=== PATIENT | male | born 1930 | race Caucasian/White ===

== ENCOUNTER 2017-01-27 12:18 | Emergency (ER) | payer OTHER ==
[~2017-01-27] VITALS: Ht 172.7 cm; Wt 79.0 kg
[~2017-01-27 12:18] MED LIST: ALL300 PO; ASPCH81 PO; CEPH500C2 PO; FRS/40 PO; METO50TA16 PO; MULT-190 PO; POTA-327 PO; SPR25 PO
[2017-01-27 12:21] VITALS: TEMP 36.3; Ht 172.7 cm; Wt 79.0 kg
--- NOTE | 2017-01-27 13:16 | EMERGENCY ROOM VISIT NOTE ---
History Report prepared by Russ: Carol Warren Under the Supervision of: Dr. Sang López M.D. First contact with patient: 12:39 Chief Complaint: FALL Stated Complaint: L SHOULDER PAIN History of Present Illness The patient is an 86 year old male who presents to the Emergency Room with complaints of an episode of a fall occurring CLOTHES IRON[employer]. The patient was in his walker in the bathroom and tripped over a box. Son thinks that the patient hit his head on the door frame and slid down the frame on his left shoulder. The patient has an abrasion to the forehead that he states was bleeding earlier. He is complaining of left shoulder pain that is worsened with movement. He rates his pain as a 10/10 in severity. The patient denies LOC, neck pain, back pain, hip pain, leg pain, and abdominal pain. He reports numbness in the fingers of his left hand that has been going on for the past few weeks. He denies any new numbness or weakness. His tetanus is UTD. Source of History: patient, family (son) Onset: CLOTHES IRONER Position: other (global) Symptom Intensity: 10/10 Timing: other (episode) Modifying Factors (Worsening): movement Associated Symptoms: + numbness (left fingers), No LOC, No neck pain, No abdominal pain, No back pain, No weakness Note: Pt is c/o left shoulder pain. Review of Systems See HPI for pertinent positives & negatives. A total of 10 systems reviewed and were otherwise negative. Past Medical & Surgical Medical Problems: (1) Atrial fibrillation (2) SEVERE CELLULITIS RIGHT LEG Family History Lung disease Social History Smoking Status: Former Smoker Smokeless Tobacco Use: No Alcohol Use: none Drug Use: none Marital Status: Occupation Status: retired Current/Historical Medications Scheduled Aspirin (Aspirin), 1 TAB PO DAILY Furosemide (Lasix), 40 MG PO DAILY Metoprolol Tartrate (Lopressor) (Lopressor), 50 MG PO BID Ocuvite Preservision (Ocuvite Preservision), 1 TAB PO DAILY Potassium Chloride (Micro-K Ext Rel), 0.5 TAB PO DAILY Spironolactone (Aldactone), 25 MG PO DAILY Allergies Coded Allergies: No Known Allergies (Unverified , 01/27/17) Physical Exam Vital Signs Date Time Temp Pulse Resp B/P (MAP) Pulse Ox O2 Delivery O2 Flow Rate FiO2 01/27/17 14:46 68 18 97/68 98 01/27/17 14:29 97/68 01/27/17 12:58 47 23 100 01/27/17 12:53 52 24 100 01/27/17 12:48 56 20 98 01/27/17 12:43 44 14 95 01/27/17 12:38 45 24 96 01/27/17 12:35 49 01/27/17 12:33 54 24 01/27/17 12:32 109/62 01/27/17 12:21 36.3 97 16 104/54 98 Physical Exam Constitutional: Vital signs reviewed. Head: Abrasion/skin avulsion to the left forehead. Eyes: Pupils are equal round reactive to light. Conjunctiva are noninjected. ENT: Pharynx is clear without erythema or exudate. Mucous membranes are moist. Neck supple without meningeal signs. Respiratory: Clear to auscultation bilaterally. Breath sounds are equal bilaterally. Cardiovascular: Regular rate and rhythm. No rubs or gallops. GI: Soft, nondistended and nontender. Bowel sounds are present. Musculoskeletal: Skin tear to the left shoulder without bony tenderness or deformity. No midline tenderness to the cervical spine. No hip tenderness. Integumentary: No cyanosis. Neurological: The patient is awake and alert. Cranial nerves II-XII are intact. Motor is 5 out of 5 all extremities. Diminished sensation to the left upper extremity over the ulnar aspect of the forearm and hand. Normal speech. No pronator drift. Psychiatric: Normal affect. Medical Decision & Procedures ER Provider Diagnostic Interpretation: Radiology results as stated below per my review and the radiologist's interpretation: LEFT SHOULDER 3 VIEWS CLINICAL HISTORY: Fall with left shoulder pain. FINDINGS: 3 views of left shoulder are obtained. No prior studies are available for comparison at the time of dictation. The skeletal structures are osteopenic. There is no radiographic evidence of fracture or dislocation in the left shoulder. Moderate arthritic change is seen at the glenohumeral articulation. Superior subluxation of the humeral head suggests chronic rotator cuff injury. Degenerative change and sclerosis is noted in the greater tuberosity the humeral head. Mild productive change is seen at the acromioclavicular joint. Mild overlying soft tissue edema is suggested. The imaged left lung parenchyma appears clear. The heart is enlarged and there is atherosclerotic calcification of the thoracic aorta. IMPRESSION: 1. Soft tissue swelling with no radiographic evidence of left shoulder fracture or dislocation. 2. Osteopenia and arthritic/degenerative change as above. Electronically signed by: Yusuf Aguilar M.D. 01/27/2017 1:25 PM Dictated Date/Time: 01/27/2017 1:[address] SCAN OF THE BRAIN WITHOUT IV CONTRAST CLINICAL HISTORY: Fall. COMPARISON STUDY: No priors. TECHNIQUE: Unenhanced axial CT scan of the brain is performed from the vertex to the skull base. CT DOSE: Reported separately under the concurrently performed CT scan of the cervical spine. FINDINGS: Brain parenchyma: There are age-related involutional changes noting mild subcortical and periventricular microangiopathic change. There is no hemorrhage, mass effect, or evidence of acute territorial ischemia by CT criteria. 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 Lal-white matter is preserved. No extra-axial fluid collection is seen. Ventricles, sulci, cisterns: Prominent secondary to involutional change. Intracranial vasculature: There is atherosclerotic calcification of the cavernous carotid arteries. Calvarium: The skeletal structures are osteopenic. There is no depressed calvarial fracture. Soft tissues: There is minimal left frontal scalp contusion. Sinuses and mastoids: Trace fluid is seen in the right maxillary antrum. The remaining visualized paranasal sinuses are clear. The mastoid air cells are well pneumatized. Orbits: The bony orbits are grossly intact. There are bilateral ocular lens implants. IMPRESSION: There is no hemorrhage, mass effect, or evidence of acute territorial ischemia by CT criteria. Electronically signed by: Yusuf Aguilar M.D. 01/27/2017 1:38 PM Dictated Date/Time: 01/27/2017 1:[address] SCAN OF THE CERVICAL SPINE CLINICAL HISTORY: Fall. COMPARISON STUDY: No priors. TECHNIQUE: CT scan of the cervical spine is performed from the skull base to the upper thoracic spine. Images are reviewed in the axial, sagittal, and coronal planes. IV contrast was not administered for this examination. CT DOSE: 1141.47 mGy.cm FINDINGS: Skeletal structures: The skeletal structures are osteopenic. There is no evidence of fracture or subluxation involving the cervical spine. Vertebral body height and alignment are maintained. There is mild straightening of the cervical lordosis. The odontoid process and lateral masses are intact. The atlantoaxial articulation is preserved noting mild productive degenerative change. The spinous processes appear intact. A large Schmorl's node is present in the inferior endplate of C7. A small Schmorl's node is seen in superior endplate of C5. Anterior osteophytes are noted throughout. There is moderate to advanced multilevel cervical spondylosis. Uncovertebral and facet arthropathy contribute to neural foraminal narrowing at most levels. Intervertebral discs: Moderate to advanced degenerative disc space narrowing is seen at C3-C4, C5-C6, C6-C7, and C7-T1. Central canal: Small posterior disc osteophyte complexes at C3-C4, C5-C6, and C6-C7 may contribute to mild acquired compromise of the central canal. Soft tissues: The prevertebral and paraspinous soft tissues are within normal limits. There is advanced atherosclerotic calcification of the carotid bulbs. Calcified tonsilliths are observed. A 1.7 cm lobulated water attenuation lesion is seen in the posterior right lower neck on image #53. This likely represents a seroma or sebaceous cyst. Calvarium: The visualized calvarium at the skull base appears intact. Brain parenchyma: Partially visualized brain parenchyma the skull base is within normal limits noting age-related involutional change. Sinuses and mastoids: There is trace fluid within the partially imaged right maxillary antrum. The sphenoid sinuses appear clear. The mastoid air cells are well pneumatized. Lung apices: There is a right pleural effusion. A calcified granuloma is noted at the left apex. IMPRESSION: 1. There is no evidence of fracture or subluxation involving the cervical spine. 2. Osteopenia and spondylotic change as above. 3. Right pleural effusion. Electronically signed by: Yusuf Aguilar M.D. 01/27/2017 1:45 PM Dictated Date/Time: 01/27/2017 1:35 PM ED Course 1239: The patient was evaluated in room A11B. A complete history and physical exam was performed. 1411: I reassessed the patient at this time. He denies any shortness of breath. I discussed the results and treatment plan with the patient and his family. I answered all pertaining that they had. They expressed understanding and verbalized agreement. The patient will be discharged home. Medical Decision This is an 86-year-old male who presents with injuries after fall with left arm numbness. Differential diagnosis includes intracranial hemorrhage, contusion, concussion, humeral fracture, cervical radiculopathy, CVA. I did perform a limited focused review of portions of the patient's old chart on the electronic medical record. The patient has had no recent pertinent visits to this hospital. Medication Reconciliation: I attest that I have personally reviewed the patient' s current medication list. Blood Pressure Screening: Patient was found to be hypotensive on screening and does not require follow-up. I did evaluate the patient as noted above. The patient is here with injuries after a mechanical fall. He states he tripped over a box. He is neurologically intact other than some numbness to the ulnar distribution in the forearm and left hand. He states this has been going on for weeks and is not a new symptom today. I did order and personally review the patient's shoulder x- rays as described above. I did order a CT of the head and cervical spine. I did review the images myself as well as the radiology report as described above. There is no evidence of intracranial hemorrhage. There is no fracture. He does have degenerative disc disease and cervical spine which may account for his numbness in his left forearm for the past several weeks. There is also incidental note of a right pleural effusion. The patient denies any shortness of breath. I did discuss the test ruled the patient and his family. He was advised follow closely with his doctor for further evaluation. His wounds were cleaned and dressed. He was discharged in good condition. Impression Primary Impression: Acute head injury Additional Impressions: Contusion of shoulder, left Left arm numbness Cervical disc disorder Fall Pleural effusion, right Scribe Attestation The scribe's documentation has been prepared under my direct and personally reviewed by me in its entirety. I confirm that the note above accurately reflects all work, treatment, procedures, and medical decision making performed by me. Departure Information Dispostion Home / Self-Care Referrals Lauren Sands D.O. (PCP) Forms HOME CARE DOCUMENTATION FORM, IMPORTANT VISIT INFORMATION Patient Instructions ED Effusion Pleural, ED Head Injury Closed, My [facility] Additional Instructions You have been examined and treated today on an emergency basis only. This is not a substitute for, or an effort to provide, complete comprehensive medical care. It is impossible to recognize and treat all injuries or illnesses in a single emergency department visit. It is therefore important that you follow up closely with your physician. Call as soon as possible for an appointment. Return for worsening symptoms or if you develop fever, vomiting, abdominal pain , loss of control of your bowel or bladder, numbness or weakness to your legs, numbness to your private area, difficulty urinating, or any other concerning symptoms. Problem Qualifiers Primary Impression: Acute head injury Encounter type: initial encounter Qualified Codes: S09.90XA - Unspecified injury of head, initial encounter Additional Impressions: Fall Encounter type: initial encounter Qualified Codes: W19.XXXA - Unspecified fall, initial encounter
--- NOTE | 2017-01-27 13:26 | DIAGNOSTIC IMAGING REPORT ---
LEFT SHOULDER 3 VIEWS CLINICAL HISTORY: Fall with left shoulder pain. FINDINGS: 3 views of left shoulder are obtained. No prior studies are available for comparison at the time of dictation. The skeletal structures are osteopenic. There is no radiographic evidence of fracture or dislocation in the left shoulder. Moderate arthritic change is seen at the glenohumeral articulation. Superior subluxation of the humeral head suggests chronic rotator cuff injury. Degenerative change and sclerosis is noted in the greater tuberosity the humeral head. Mild productive change is seen at the acromioclavicular joint. Mild overlying soft tissue edema is suggested. The imaged left lung parenchyma appears clear. The heart is enlarged and there is atherosclerotic calcification of the thoracic aorta. IMPRESSION: 1. Soft tissue swelling with no radiographic evidence of left shoulder fracture or dislocation. 2. Osteopenia and arthritic/degenerative change as above. Electronically signed by: Yusuf Aguilar M.D. 01/27/2017 1:25 PM Dictated Date/Time: 01/27/2017 1:23 PM
--- NOTE | 2017-01-27 13:39 | DIAGNOSTIC IMAGING REPORT ---
CT SCAN OF THE BRAIN WITHOUT IV CONTRAST CLINICAL HISTORY: Fall. COMPARISON STUDY: No priors. TECHNIQUE: Unenhanced axial CT scan of the brain is performed from the vertex to the skull base. CT DOSE: Reported separately under the concurrently performed CT scan of the cervical spine. FINDINGS: Brain parenchyma: There are age-related involutional changes noting mild subcortical and periventricular microangiopathic change. There is no hemorrhage, mass effect, or evidence of acute territorial ischemia by CT criteria. 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 Lal-white matter is preserved. No extra-axial fluid collection is seen. Ventricles, sulci, cisterns: Prominent secondary to involutional change. Intracranial vasculature: There is atherosclerotic calcification of the cavernous carotid arteries. Calvarium: The skeletal structures are osteopenic. There is no depressed calvarial fracture. Soft tissues: There is minimal left frontal scalp contusion. Sinuses and mastoids: Trace fluid is seen in the right maxillary antrum. The remaining visualized paranasal sinuses are clear. The mastoid air cells are well pneumatized. Orbits: The bony orbits are grossly intact. There are bilateral ocular lens implants. IMPRESSION: There is no hemorrhage, mass effect, or evidence of acute territorial ischemia by CT criteria. Electronically signed by: Yusuf Aguilar M.D. 01/27/2017 1:38 PM Dictated Date/Time: 01/27/2017 1:35 PM
--- NOTE | 2017-01-27 13:47 | DIAGNOSTIC IMAGING REPORT ---
CT SCAN OF THE CERVICAL SPINE CLINICAL HISTORY: Fall. COMPARISON STUDY: No priors. TECHNIQUE: CT scan of the cervical spine is performed from the skull base to the upper thoracic spine. Images are reviewed in the axial, sagittal, and coronal planes. IV contrast was not administered for this examination. CT DOSE: 1141.47 mGy.cm FINDINGS: Skeletal structures: The skeletal structures are osteopenic. There is no evidence of fracture or subluxation involving the cervical spine. Vertebral body height and alignment are maintained. There is mild straightening of the cervical lordosis. The odontoid process and lateral masses are intact. The atlantoaxial articulation is preserved noting mild productive degenerative change. The spinous processes appear intact. A large Schmorl's node is present in the inferior endplate of C7. A small Schmorl's node is seen in superior endplate of C5. Anterior osteophytes are noted throughout. There is moderate to advanced multilevel cervical spondylosis. Uncovertebral and facet arthropathy contribute to neural foraminal narrowing at most levels. Intervertebral discs: Moderate to advanced degenerative disc space narrowing is seen at C3-C4, C5-C6, C6-C7, and C7-T1. Central canal: Small posterior disc osteophyte complexes at C3-C4, C5-C6, and C6-C7 may contribute to mild acquired compromise of the central canal. Soft tissues: The prevertebral and paraspinous soft tissues are within normal limits. There is advanced atherosclerotic calcification of the carotid bulbs. Calcified tonsilliths are observed. A 1.7 cm lobulated water attenuation lesion is seen in the posterior right lower neck on image #53. This likely represents a seroma or sebaceous cyst. Calvarium: The visualized calvarium at the skull base appears intact. Brain parenchyma: Partially visualized brain parenchyma the skull base is within normal limits noting age-related involutional change. Sinuses and mastoids: There is trace fluid within the partially imaged right maxillary antrum. The sphenoid sinuses appear clear. The mastoid air cells are well pneumatized. Lung apices: There is a right pleural effusion. A calcified granuloma is noted at the left apex. IMPRESSION: 1. There is no evidence of fracture or subluxation involving the cervical spine. 2. Osteopenia and spondylotic change as above. 3. Right pleural effusion. Electronically signed by: Yusuf Aguilar M.D. 01/27/2017 1:45 PM Dictated Date/Time: 01/27/2017 1:35 PM
[2017-01-27] MEDS ORDERED: MULT-190 PO (14:22)
[2017-01-27] MEDS ORDERED: METO50TA16 PO (14:22)
[2017-01-27] MEDS ORDERED: SPIR25TA PO (14:22)
[2017-01-27] MEDS ORDERED: ASPI1TAB83 PO (14:22)
[2017-01-27] MEDS ORDERED: FRS/40 PO (14:22)
[2017-01-27] MEDS ORDERED: POTA10CA28 PO (14:22)
[2017-01-27 14:46] VITALS: BP 97/68; PULSE 68; O2SAT 98
[2017-02-27] MEDS ORDERED: CIPR1TAB11 PO (15:13)
[2017-04-29] MEDS ORDERED: CEPH500C2 PO (07:47)
== END 2017-01-27 14:30 | disposition home or self-care (01) ==
LOC: C.EDB 12:18 → C.EDA 14:30
DX: S09.90XA Unspecified injury of head, initial encounter (principal); S40.012A Contusion of left shoulder, initial encounter; W01.0XXA Fall on same level from slipping, tripping and stumbling without subsequent striking against object, initial encounter; R20.2 Paresthesia of skin; M50.30 Other cervical disc degeneration, unspecified cervical region; J90 Pleural effusion, not elsewhere classified; I48.91 Unspecified atrial fibrillation; Z86.19 Personal history of other infectious and parasitic diseases; Z87.891 Personal history of nicotine dependence; Z79.82 Long term (current) use of aspirin; Z79.899 Other long term (current) drug therapy

== ENCOUNTER 2017-10-13 16:51 | Emergency (ER) | payer OTHER ==
[~2017-10-13] VITALS: Ht 175.3 cm; Wt 77.5 kg
[~2017-10-13 16:51] MED LIST changes: -ALL300 PO; -ASPCH81 PO; +ASPI1TAB83 PO; -CEPH500C2 PO; -POTA-327 PO; +POTA10CA28 PO; +SPIR25TA PO; -SPR25 PO
[2017-10-13 16:59] VITALS: TEMP 37.1; Ht 175.3 cm; Wt 77.5 kg
[2017-10-13] MEDS ORDERED: LIDOCAINE/EPINEPH/TETRACAINE 1 EA SYR EXT STA (17:23)
[2017-10-13] MEDS ORDERED: SODIUM CHLORIDE 0.9% 1000ML 1,000 ML IV STA (17:23)
[2017-10-13] MEDS ORDERED: ACETAMINOPHEN 500 MG TAB PO STA (17:25)
[2017-10-13 17:52] VITALS: O2SAT 95
[2017-10-13 18:07] LABS: BASO % 0.6 %; BASO ABS # 0.03 K/uL (0-0.2); EOS % 3.3 %; EOS ABS # 0.17 K/uL (0-0.5); HEMATOCRIT 30.2 % (42-52); HEMOGLOBIN 9.8 g/dL (14.0-18.0); IG# 0.01 K/uL (0.00-0.02); LYMPH % 12.5 %; LYMPH ABS # 0.64 K/uL (1.2-3.4); MEAN CELL VOLUME 99.7 fL (80-100); MEAN CORPUSCULAR HEMOGLOBIN 32.3 pg (25-34); MEAN CORPUSCULAR HGB CONC 32.5 g/dl (32-36); MEAN PLATELET VOLUME 10.4 fL (7.4-10.4); MONO % 8.6 %; MONO ABS # 0.44 K/uL (0.11-0.59); NEUT % 74.8 %; NEUT ABS # 3.81 K/uL (1.4-6.5); PLATELET COUNT 159 K/uL (130-400); RED CELL DISTRIBUTION WIDTH CV 16.6 % (11.5-14.5); RED CELL DISTRIBUTION WIDTH SD 59.5 fL (36.4-46.3)
--- NOTE | 2017-10-13 18:12 | DIAGNOSTIC IMAGING REPORT ---
HEAD WITHOUT CONTRAST (CT) CLINICAL HISTORY: 86 years-old Male with EVALUATE WEAKNESS. fall, posterior lac. Acute weakness dose post fall TECHNIQUE: Multiple axial CT images of the head were obtained without contrast. A dose lowering technique was utilized adhering to the principles of ALARA. CT DOSE: 1079.91 mGy.cm COMPARISON: CT head 01/27/2017. FINDINGS: No acute intracranial hemorrhage, midline shift, intracranial mass, hydrocephalus, territorial ischemia or abnormal extra-axial collection. Moderate brain atrophy. 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 The calvarium is intact. The mastoid air cells, and middle ear cavities are clear. Mild mucosal thickening of the maxillary sinuses and nasal turbinates. Subcutaneous emphysema with laceration of the left parietal scalp noted with soft tissue swelling and 3.2 x 0.7 cm left parietal scalp hematoma. Postsurgical changes of the bilateral globes. IMPRESSION: 1. No acute intracranial abnormality or calvarial fracture. 2. Posterior left parietal scalp soft tissue swelling with laceration and small hematoma. No opaque foreign body. The above report was generated using voice recognition software. It may contain grammatical, syntax or spelling errors. Electronically signed by: Too Zavala M.D. 10/13/2017 6:11 PM Dictated Date/Time: 10/13/2017 6:07 PM
--- NOTE | 2017-10-13 18:17 | DIAGNOSTIC IMAGING REPORT ---
CERVICAL SPINE W/O CLINICAL HISTORY: 86 years-old Male with EVALUATE WEAKNESS. fall, posterior lac. Acute weakness and neck injury status post fall COMPARISON: Cervical spine 01/27/2017. TECHNIQUE: Multiple axial CT images of the cervical spine were obtained without contrast. A dose lowering technique was utilized adhering to the principles of ALARA. FINDINGS: Mastoid air cells and middle ear cavities are clear. There is mild mucosal thickening of the maxillary sinuses. There is no acute cervical spine fracture or subluxation identified. The bones appear mildly demineralized and demonstrate multilevel intervertebral disc space narrowing, most pronounced at C3-C4, C5-C6 and C6-C7 where there is moderate to severe disease. Multilevel prominent spondylitic spurring is noted with severe multilevel facet arthropathy, worse on the left. There is mostly mild to moderate facet arthrosis on the right. Subcortical cystic changes are seen involving the inferior endplate C2, unchanged. No definite high-grade central canal stenosis, however there is multilevel foraminal narrowing which appears severe bilaterally at C5-C6 and C6-C7. Small right pleural effusion. Air is noted within several of the venous structures, likely iatrogenic. Multinodular thyroid goiter. Atherosclerosis of the bilateral carotid bulbs. IMPRESSION: 1. No acute fracture or subluxation of the cervical spine. 2. Multilevel endplate spurring, intervertebral disc space narrowing and facet arthrosis as above with demineralized appearance of the bones. 3. Multinodular goiter. 4. Small right pleural effusion. The above report was generated using voice recognition software. It may contain grammatical, syntax or spelling errors. Electronically signed by: Too Zavala M.D. 10/13/2017 6:16 PM Dictated Date/Time: 10/13/2017 6:11 PM
[2017-10-13 18:18] LABS: INR 1.2 (0.9-1.1)
[2017-10-13 18:28] LABS: ALBUMIN 3.5 gm/dl (3.4-5.0); CALCIUM 9.2 mg/dl (8.5-10.1); CREATININE 2.53 mg/dl (0.60-1.40); POTASSIUM 3.8 mmol/L (3.5-5.1)
--- NOTE | 2017-10-13 18:35 | DIAGNOSTIC IMAGING REPORT ---
CHEST ONE VIEW PORTABLE HISTORY: 86 years-old Male EVALUATE WEAKNESS acute weakness COMPARISON: Chest radiograph 02/09/2014 TECHNIQUE: Portable AP view of the chest FINDINGS: Cardiac silhouette is enlarged. Bilateral interstitial coarsening is noted along with hypoinflation. Atherosclerosis of the aorta. Small bilateral pleural effusions with subsegmental bibasilar opacities. No pneumothorax. Bones of the chest appear grossly intact. IMPRESSION: 1. Cardiomegaly with hypoinflation and interstitial coarsening suggesting mild pulmonary edema. 2. Small bilateral pleural effusions with bibasilar opacities suggesting atelectasis. The above report was generated using voice recognition software. It may contain grammatical, syntax or spelling errors. Electronically signed by: Too Zavala M.D. 10/13/2017 6:34 PM Dictated Date/Time: 10/13/2017 6:33 PM
[2017-10-13 21:27] VITALS: BP 150/81; PULSE 55; O2SAT 95
--- NOTE | 2017-10-13 23:19 | EMERGENCY ROOM VISIT NOTE ---
History Report prepared by Russ: Truman Malik Under the Supervision of: Dr. Jose Ontiveros M.D. First contact with patient: 16:59 Chief Complaint: FALL Stated Complaint: FALL/ HEAD INJURY/LAC History of Present Illness The patient is an 86 year old male who presents to the Emergency Room with complaints of a constant, severe headache beginning prior to arrival. The patient states he was walking when he lost his balance. He reports he was having a normal day prior to the fall. The patient notes he called his son after the fall to let him know. The patient's son states the patient is no longer on a blood thinner, and he lives with his . Pt denies LOC, visual changes, neck pain, chest pain, breathing difficulties, nausea, vomiting, abdominal pain, back pain, extremity pain, numbness, weakness, open wounds, active bleeding, or other complaints. Review of EMR shows the patient has been bradycardic before. Source of History: patient, family Onset: prior to arrival Position: head Symptom Intensity: severe Quality: ache Timing: constant Note: Associated symptoms: lost balance Review of Systems See HPI for pertinent positives and negatives. A total of ten systems were reviewed and were otherwise negative. Past Medical & Surgical Medical Problems: (1) Atrial fibrillation (2) SEVERE CELLULITIS RIGHT LEG Family History Lung disease Social History Smoking Status: Never Smoker Alcohol Use: none Drug Use: none Marital Status: Housing Status: lives with significant other Occupation Status: retired Current/Historical Medications Scheduled Aspirin (Aspirin), 1 TAB PO DAILY Furosemide (Lasix), 40 MG PO DAILY Metoprolol Tartrate (Lopressor) (Lopressor), 50 MG PO BID Ocuvite Preservision (Ocuvite Preservision), 1 TAB PO DAILY Potassium Chloride (Micro-K Ext Rel), 0.5 TAB PO DAILY Spironolactone (Aldactone), 25 MG PO DAILY Allergies Coded Allergies: No Known Allergies (Unverified , 10/13/17) Physical Exam Vital Signs Date Time Temp Pulse Resp B/P (MAP) Pulse Ox O2 Delivery O2 Flow Rate FiO2 10/13/17 21:27 55 20 150/81 95 Room Air 10/13/17 18:46 48 16 108/47 98 Room Air 10/13/17 17:52 95 Room Air 10/13/17 17:41 49 10/13/17 16:59 37.1 53 16 139/70 99 Room Air Physical Exam GENERAL: Awake, alert, tired appearing, no acute distress HEAD: Normocephalic. No contreras sign. No raccoon eyes. Three linear laceration to the occiput (2cm, 3cm, 2cm) - minimal bleeding. EYES: Normal conjunctiva. PERRL. EARS: External ears normal. Right TM normal. Left TM normal. NOSE: Atraumatic OROPHARYNX: Lips, tongue, and mucosa unremarkable. No erythema or exudate. NECK: Cervical collar in place. No tracheal deviation or JVD. No posterior midline tenderness. No step offs noted. RESPIRATORY: CTA bilaterally. Breath sounds equal. No wheezes. No rhonchi. Normal respiratory effort. CARDIAC: Bradycardic rate, normal rhythm. No murmurs. No rubs. ABDOMEN: Inspection reveals no abnormalities. Soft, non distended. No tenderness to palpation. No hernias. BACK: No midline step offs or tenderness to palpation. Unremarkable. PELVIS: Stable to rock. SKIN: Chronic venous discoloration of the bilateral lower extremities. LYMPH: No adenopathy. MUSCULOSKELETAL: Trace pedal edema to the bilateral lower extremities. 1cm skin tare to the back of the left hand. NEURO: GCS 14. Normal sensorium. No sensory or motor deficits noted. Medical Decision & Procedures ER Provider Diagnostic Interpretation: Radiology results as stated below per my review and radiologist interpretation: HEAD WITHOUT CONTRAST (CT) CLINICAL HISTORY: 86 years-old Male with EVALUATE WEAKNESS. fall, posterior lac. Acute weakness dose post fall TECHNIQUE: Multiple axial CT images of the head were obtained without contrast. A dose lowering technique was utilized adhering to the principles of ALARA. CT DOSE: 1079.91 mGy.cm COMPARISON: CT head 01/27/2017. FINDINGS: No acute intracranial hemorrhage, midline shift, intracranial mass, hydrocephalus, territorial ischemia or abnormal extra-axial collection. Moderate brain atrophy. 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 The calvarium is intact. The mastoid air cells, and middle ear cavities are clear. Mild mucosal thickening of the maxillary sinuses and nasal turbinates. Subcutaneous emphysema with laceration of the left parietal scalp noted with soft tissue swelling and 3.2 x 0.7 cm left parietal scalp hematoma. Postsurgical changes of the bilateral globes. IMPRESSION: 1. No acute intracranial abnormality or calvarial fracture. 2. Posterior left parietal scalp soft tissue swelling with laceration and small hematoma. No opaque foreign body. The above report was generated using voice recognition software. It may contain grammatical, syntax or spelling errors. Electronically signed by: Too Zavala M.D. 10/13/2017 6:11 PM Dictated Date/Time: 10/13/2017 6:07 PM CHEST ONE VIEW PORTABLE HISTORY: 86 years-old Male EVALUATE WEAKNESS acute weakness COMPARISON: Chest radiograph 02/09/2014 TECHNIQUE: Portable AP view of the chest FINDINGS: Cardiac silhouette is enlarged. Bilateral interstitial coarsening is noted along with hypoinflation. Atherosclerosis of the aorta. Small bilateral pleural effusions with subsegmental bibasilar opacities. No pneumothorax. Bones of the chest appear grossly intact. IMPRESSION: 1. Cardiomegaly with hypoinflation and interstitial coarsening suggesting mild pulmonary edema. 2. Small bilateral pleural effusions with bibasilar opacities suggesting atelectasis. The above report was generated using voice recognition software. It may contain grammatical, syntax or spelling errors. Electronically signed by: Too Zavala M.D. 10/13/2017 6:34 PM Dictated Date/Time: 10/13/2017 6:33 PM CERVICAL SPINE W/O CLINICAL HISTORY: 86 years-old Male with EVALUATE WEAKNESS. fall, posterior lac. Acute weakness and neck injury status post fall COMPARISON: Cervical spine 01/27/2017. TECHNIQUE: Multiple axial CT images of the cervical spine were obtained without contrast. A dose lowering technique was utilized adhering to the principles of ALARA. FINDINGS: Mastoid air cells and middle ear cavities are clear. There is mild mucosal thickening of the maxillary sinuses. There is no acute cervical spine fracture or subluxation identified. The bones appear mildly demineralized and demonstrate multilevel intervertebral disc space narrowing, most pronounced at C3-C4, C5-C6 and C6-C7 where there is moderate to severe disease. Multilevel prominent spondylitic spurring is noted with severe multilevel facet arthropathy, worse on the left. There is mostly mild to moderate facet arthrosis on the right. Subcortical cystic changes are seen involving the inferior endplate C2, unchanged. No definite high-grade central canal stenosis, however there is multilevel foraminal narrowing which appears severe bilaterally at C5-C6 and C6-C7. Small right pleural effusion. Air is noted within several of the venous structures, likely iatrogenic. Multinodular thyroid goiter. Atherosclerosis of the bilateral carotid bulbs. IMPRESSION: 1. No acute fracture or subluxation of the cervical spine. 2. Multilevel endplate spurring, intervertebral disc space narrowing and facet arthrosis as above with demineralized appearance of the bones. 3. Multinodular goiter. 4. Small right pleural effusion. The above report was generated using voice recognition software. It may contain grammatical, syntax or spelling errors. Electronically signed by: Too Zavala M.D. 10/13/2017 6:16 PM Dictated Date/Time: 10/13/2017 6:11 PM Laboratory Results 10/13/17 17:45 Red Blood Count 3.03, Mean Corpuscular Volume 99.7, Mean Corpuscular Hemoglobin 32.3, Mean Corpuscular Hemoglobin Concent 32.5, Mean Platelet Volume 10.4, Neutrophils (%) (Auto) 74.8, Lymphocytes (%) (Auto) 12.5, Monocytes (%) (Auto) 8.6, Eosinophils (%) (Auto) 3.3, Basophils (%) (Auto) 0.6, Neutrophils # (Auto) 3.81, Lymphocytes # (Auto) 0.64, Monocytes # (Auto) 0.44, Eosinophils # (Auto) 0.17, Basophils # (Auto) 0.03 10/13/17 17:45 Test 10/13/17 17:45 White Blood Count 5.10 K/uL (4.8-10.8) Red Blood Count 3.03 M/uL (4.7-6.1) Hemoglobin 9.8 g/dL (14.0-18.0) Hematocrit 30.2 % (42-52) Mean Corpuscular Volume 99.7 fL (80-100) Mean Corpuscular Hemoglobin 32.3 pg (25-34) Mean Corpuscular Hemoglobin Concent 32.5 g/dl (32-36) Platelet Count 159 K/uL (130-400) Mean Platelet Volume 10.4 fL (7.4-10.4) Neutrophils (%) (Auto) 74.8 % Lymphocytes (%) (Auto) 12.5 % Monocytes (%) (Auto) 8.6 % Eosinophils (%) (Auto) 3.3 % Basophils (%) (Auto) 0.6 % Neutrophils # (Auto) 3.81 K/uL (1.4-6.5) Lymphocytes # (Auto) 0.64 K/uL (1.2-3.4) Monocytes # (Auto) 0.44 K/uL (0.11-0.59) Eosinophils # (Auto) 0.17 K/uL (0-0.5) Basophils # (Auto) 0.03 K/uL (0-0.2) RDW Standard Deviation 59.5 fL (36.4-46.3) RDW Coefficient of Variation 16.6 % (11.5-14.5) Immature Granulocyte % (Auto) 0.2 % Immature Granulocyte # (Auto) 0.01 K/uL (0.00-0.02) Prothrombin Time 12.7 SECONDS (9.0-12.0) Prothromb Time International Ratio 1.2 (0.9-1.1) Activated Partial Thromboplast Time 30.0 SECONDS (21.0-31.0) Partial Thromboplastin Ratio 1.2 Urine Color YELLOW Urine Appearance CLEAR (CLEAR) Urine pH 5.0 (4.5-7.5) Urine Specific [place] 1.011 (1.000-1.030) Urine Protein NEG (NEG) Urine Glucose (UA) NEG (NEG) Urine Ketones NEG (NEG) Urine Occult Blood NEG (NEG) Urine Nitrite NEG (NEG) Urine Bilirubin NEG (NEG) Urine Urobilinogen NEG (NEG) Urine Leukocyte Esterase NEG (NEG) Anion Gap 10.0 mmol/L (3-11) Est Creatinine Clear Calc Drug Dose 20.2 ml/min Estimated GFR () 25.2 Estimated GFR (Non- 21.8 BUN/Creatinine Ratio 23.5 (10-20) Calcium Level 9.2 mg/dl (8.5-10.1) Magnesium Level 2.5 mg/dl (1.8-2.4) Total Bilirubin 0.6 mg/dl (0.2-1) Direct Bilirubin 0.3 mg/dl (0-0.2) Aspartate Amino Transf (AST/SGOT) 14 U/L (15-37) Alanine Aminotransferase (ALT/SGPT) 17 U/L (12-78) Alkaline Phosphatase 205 U/L (45-117) Troponin I 0.020 ng/ml (0-0.045) Total Protein 8.0 gm/dl (6.4-8.2) Albumin 3.5 gm/dl (3.4-5.0) Lipase 244 U/L (73-393) Thyroid Stimulating Hormone (TSH) 1.150 uIu/ml (0.300-4.500) Laboratory results reviewed by me Medications Administered Medications (Trade) Dose Ordered Sig/Jewel Route Start Time Stop Time Status Last Admin Dose Admin Sodium Chloride 1,000 ml @ 125 mls/hr Q8H STAT IV 10/13/17 17:23 18 01:22 10/13/17 17:23 125 MLS/HR Tetracaine/ Epinephrine/ Lidocaine (L.e.t. Gel 4%/ 1:100/0.5%) 1 ea UD STAT EXT 10/13/17 17:23 10/13/17 17:26 DC 10/13/17 17:23 1 EA Acetaminophen (Tylenol Tab) 1,000 mg NOW STAT PO 10/13/17 17:25 10/13/17 17:26 DC 10/13/17 17:25 1,000 MG Procedure Location: Scalp Total length: Three lacerations: 2cm, 3cm, and 2cm Complexity: Intermediate Verbal consent was obtained after the risks and benefits were explained, including but not limited to bleeding, scarring, infection, pain, and bone/joint /nerve damage. At this time, the risks of the procedure are less than the risks of NOT performing the procedure. A time out was taken and the correct patient and site identified. The skin was prepped with betadine. The target area was anesthetized with LETGel. Copious irrigation was performed using normal saline. The skin was re-prepped with betadine and a sterile field set. The wound was explored for foreign bodies and none found. Examination revealed no injury to deep structures such as tendons, bone, or significant blood vessels. Debridement was not performed. The wound edges were approximated using 5 surgical tyesha, five 4-0 simple interrupted nylon sutures. Hemostasis and excellent approximation was achieved. Antibacterial ointment and a sterile dressing applied. Detailed wound care instructions and signs and symptoms of infection reviewed with the patient. No complications and the patient tolerated the procedure well. ECG Per My Interpretation Indication: other (trauma) Rate (beats per minute): 55 Rhythm: atrial fibrillation (with slow response) Findings: Q waves (Anterolateral, inferior), RBBB (incomplete), left axis deviation, other (Low QRS) Comparison ECG Date: 02/09/14 Change: When compared, the rate dropped by 28 beats per minute. ED Course 170: The patient was evaluated in room A11A. A complete history and physical exam was performed. 1723: Ordered Tetracaine/Epinephrine/Lidocaine 1 ea EXT, Sodium Chloride 1000 ml @ 125 mls/hr IV 172: Ordered Acetaminophen 1000mg PO 1843: I reevaluated the patient and performed a laceration repair. Please refer to the procedure note for more details. 2127: I reevaluated the patient. Discussed results and discharge instructions: he verbalized understanding and agreement. The patient is ready for discharge. Medical Decision Prior records/ancillary studies reviewed. Triage Nursing notes reviewed and agree them. Additional history obtained from family. The patient's history was concerning for traumatic head injury and a fall Differential diagnosis: Etiologies such as contusion, fracture, subdural hematoma, concussion, epidural hematoma, intraparenchymal hemorrhage, as well as other traumatic pathologies were entertained. Physical examination findings: As above. ER treatment provided: P.o. Tylenol Laceration repair IV hydration On reassessment the patient felt better. Diagnostics interpreted by me: ECG: A. fib as above. Bradycardia noted. Record review indicates bradycardia present in the past. The labs revealed an unremarkable CBC. Chemistry panel revealed renal insufficiency. Compared to his most recent measurements as an outpatient his creatinine is not significantly different. He was measuring 2.2-2.3 as an outpatient. It is 2.5 today. Urinalysis unremarkable. Cardiac markers negative. Imaging studies: X-ray and CT scans as above It appears the patient has a concussion and laceration. He is generally weak. He was ambulated in the emergency department and did well with this. Family feels comfortable with him going home. I did ask for him to have a short-term follow-up in a couple of days at his primary clinic for recheck. Family agrees. He will be back to the ER in 6-7 days for suture/staple removal or sooner if necessary. I gave my usual and customary discussion regarding this issue. By the evaluation outlined above other emergent etiologies such as those listed in the differential, as well as others, were deemed relatively unlikely. The patient was educated about the findings as listed above. All questions were answered and the patient was pleased with the treatment. Return instructions were outlined and the patient was discharged in stable condition. The patient was referred to to his PCP and then to the ER for follow-up for a recheck of the current condition. Head Trauma GCS Score: 14 Medication Reconcilliation Current Medication List: was personally reviewed by me Blood Pressure Screening Patient's blood pressure: Normal blood pressure Blood pressure disposition: Did not require urgent referral Impression Primary Impression: Scalp laceration Additional Impressions: Concussion Dehydration Scribe Attestation The scribe's documentation has been prepared under my direction and personally reviewed by me in its entirety. I confirm that the note above accurately reflects all work, treatment, procedures, and medical decision making performed by me. Departure Information Dispostion Home / Self-Care Referrals Lauren Sands D.O. (PCP) Forms HOME CARE DOCUMENTATION FORM, IMPORTANT VISIT INFORMATION Patient Instructions My [facility] Additional Instructions WOUND CARE INSTRUCTIONS: Bacitracin to wounds once daily. Use a non-stick dressing such as a piece of gauze and a soft wrap. Change the dressings once a day. Tylenol as needed for pain. Allow your wounds to air dry several hours per day when you are resting, but it is a good idea to keep them covered while sleeping to prevent irritation and the sheets sticking to the wound. Apply direct pressure for any bleeding. Rest and drink plenty of fluids. Use your walker. Return to the ER immediately for spreading redness, fevers, pus-like drainage, confusion, severe headache, vomiting, severe pain, or as needed. Return to the ER in 6-7 days for suture/staple removal, or sooner as needed. Follow-up with the primary office in 2-3 days. Call them tomorrow to set an appointment. Problem Qualifiers
== END 2017-10-13 21:46 | disposition home or self-care (01) ==
LOC: EDBD 16:51 → C.EDA 16:52
DX: S01.01XA Laceration without foreign body of scalp, initial encounter (principal); S06.0X0A Concussion without loss of consciousness, initial encounter; E86.0 Dehydration; I48.91 Unspecified atrial fibrillation; Z79.82 Long term (current) use of aspirin; Z79.899 Other long term (current) drug therapy

== ENCOUNTER 2018-02-26 16:23 | Emergency (ER) | payer OTHER ==
[~2018-02-26] VITALS: Ht 172.7 cm; Wt 75.0 kg
[~2018-02-26 16:23] MED LIST changes: +CLOB-85 TOP; -SPIR25TA PO
[2018-02-26 16:29] VITALS: TEMP 37; Ht 172.7 cm; Wt 75.0 kg
--- NOTE | 2018-02-26 17:00 | EMERGENCY ROOM VISIT NOTE ---
History Report prepared by Russ: Sang Murray Under the Supervision of: Dr. Chichi Griffith D.O. First contact with patient: 16:30 Chief Complaint: OTHER COMPLAINT Stated Complaint: MEDICAL CLEARANCE FOR [facility] ADMIT History of Present Illness The patient is a 87 year old male who presents to the Emergency Room after being referred by the office of aging for a long-term medical clearance on an emergency basis. Patient is present with his and son. Nurse states the patient was accepted to [facility]. Nurse adds that if the patient gets medical clearance she can go to [facility] now. She states if the patient is admitted, the patient can go there after. Patient states he has scrapes on his skin due to "trying to get out of bed". Son adds the patient has bilateral leg swelling and a "bad" ankle. Patient denies falling, elbow pain, recent illnesses /injuries, vomiting, diarrhea, and urinary symptoms. Source of History: patient, nursing staff Onset: Recent Position: arm (bilateral), ankle Modifying Factors (Worsening): other (None) Modifying Factors (Relieving): other (None) Associated Symptoms: No fevers, No vomiting, No urinary symptoms Note: Negative falling, elbow pain, and recent illnesses/injuries. Review of Systems See HPI for pertinent positives & negatives. A total of 10 systems reviewed and were otherwise negative. Past Medical & Surgical Medical Problems: (1) Chronic anemia (2) Chronic atrial fibrillation (3) CKD (chronic kidney disease), stage IV (4) Dyslipidemia (5) Pulmonary hypertension (6) Right-sided heart failure (7) Severe aortic stenosis (8) Venous stasis Surgical Problems: (1) H/O arthroscopy of shoulder (2) H/O inguinal hernia repair (3) History of cataract surgery Family History Lung disease Social History Smoking Status: Never Smoker Alcohol Use: none Drug Use: none Marital Status: Housing Status: lives with significant other Occupation Status: retired Current/Historical Medications Scheduled Allopurinol (Zyloprim), 300 MG PO DAILY Aspirin (Aspirin), 81 MG PO DAILY Cholecalciferol (Vitamin D3), 1,000 INTER.UNIT PO DAILY Furosemide (Lasix), 40 MG PO BID Metoprolol Tartrate (Lopressor) (Lopressor), 50 MG PO BID Multiple Vitamins W/ Minerals (Ocuvite Lutein), 1 CAP PO DAILY Omeprazole (Prilosec), 20 MG PO DAILY Potassium Chloride Microencaps (Potassium Chloride Er), 10 MEQ PO BID Scheduled PRN Acetaminophen (Apap), 2 TABS PO Q6H PRN for Pain or Fever Betamethasone Dipropionate (To (Betamethasone Dipropionat), 1 APPLN TOP BID PRN for Rash Bisacodyl (Bisacodyl Laxative), 1 SUPP RE Q6H PRN for Constipation Sodium Phosphates (Fleet Enema Six Pack), 1 DOSE RE Q6H PRN for Constipation Allergies Coded Allergies: No Known Allergies (Unverified , 02/27/18) Physical Exam Vital Signs Date Time Temp Pulse Resp B/P (MAP) Pulse Ox O2 Delivery O2 Flow Rate FiO2 02/26/18 20:20 98 126/78 98 02/26/18 16:29 37.0 89 19 127/62 93 Room Air Physical Exam GENERAL: alert, well appearing, well nourished, no distress, non-toxic, [place] [facility] EXAM: normal conjunctiva, PERRL and EOM's grossly intact OROPHARYNX: no exudate, no erythema, lips, buccal mucosa, and tongue normal and mucous membranes are moist NECK: supple, no nuchal rigidity, no adenopathy, non-tender LUNGS: Clear to auscultation. Normal chest wall mechanics, no w/r/r HEART: no murmurs, S1 normal and S2 normal ABDOMEN: abdomen soft, non-tender, normo-active bowel sounds, no masses, no rebound or guarding. BACK: Back is symmetrical on inspection and there is no deformity, no midline tenderness, no CVA tenderness. SKIN: no rashes and no bruising UPPER EXTREMITIES: Scattered skins tears and abrasions on b/l upper extremities and two spots on back with dressing over top. No surrounding erythema suggestive of cellulitis. LOWER EXTREMITIES: B/l LE edema with right greater than left. NEURO EXAM: Normal sensorium, cranial nerves II-XII grossly intact, normal speech, no gross weakness of arms, no gross weakness of legs. Medical Decision & Procedures ER Provider Diagnostic Interpretation: Radiology results have been interpreted by the radiologist and reviewed by me. CHEST ONE VIEW PORTABLE HISTORY: 87 years-old Male fall acute chest injury status post fall COMPARISON: Chest radiograph 01/31/2018 TECHNIQUE: Portable AP view of the chest FINDINGS: Cardiac silhouette is enlarged, unchanged. Calcification of the aorta. Patient is rotated to the left. Mild left hemidiaphragmatic elevation. No pneumothorax. Trace right pleural effusion with subsegmental bibasilar opacities appearing unchanged. Pulmonary vascular congestion without overt pulmonary edema. Degenerative changes of the shoulders and spine. IMPRESSION: 1. Cardiomegaly with mild pulmonary vascular congestion. 2. Unchanged appearance of the subsegmental bibasilar opacities favoring atelectasis with pneumonitis difficult to exclude. 3. Trace right pleural effusion. The above report was generated using voice recognition software. It may contain grammatical, syntax or spelling errors. Electronically signed by: Too Zavala M.D. 02/26/2018 5:[address] HEAD WITHOUT CONTRAST (CT) CLINICAL HISTORY: Head pain status post trauma COMPARISON STUDY: 01/02/2018 TECHNIQUE: Axial CT of the brain is performed from the vertex to the skull base. IV contrast was not administered for this examination. A dose lowering technique was utilized adhering to the principles of ALARA. CT DOSE: 2056.20 mGy.cm FINDINGS: No intra or extra-axial mass lesions are visualized. There is no CT evidence of acute cortical infarction. There is no evidence of midline shift. There is no acute hemorrhage. No calvarial fractures are visualized. There are patchy white matter hypodensities likely on a small vessel basis. There is no evidence of pathologic ventricular dilatation. There is a trace right maxilla sinus air-fluid level. There is an old nasal bone deformity. IMPRESSION: No acute intracranial findings Electronically signed by: Ravin Liz M.D. 02/26/2018 7:25 PM (CHEST) THORAX WITHOUT CLINICAL HISTORY: Chest pain status post trauma COMPARISON STUDY: July 2008 CT DOSE: TECHNIQUE: CT of the thorax was performed from the thoracic inlet to the lung bases. Images are reviewed in the axial, sagittal, and coronal planes. IV contrast was not administered for this examination. A dose lowering technique was utilized adhering to the principles of ALARA. FINDINGS: Thyroid: There is a thyroid goiter present. Thoracic aorta: There is no evidence of aneurysmal dilatation. There is no evidence of acute aortic injury given the limitations of a noncontrast study. Heart: The heart is enlarged. There are coronary artery calcifications. Lungs and pleural spaces: There is no pneumothorax. There is a etgxr-gh-[id number] right pleural effusion. There is a trace left pleural effusion. There is bibasilar atelectasis. Mediastinum: There is mild elevation of the left hemidiaphragm. There is no pathologic adenopathy. Tootie: There is no evidence of pathologic hilar adenopathy given the limitations of a noncontrast study Axilla: There is no evidence of axillary lymphadenopathy Upper abdomen: There is perihepatic fluid. Liver surface is scalloped. The findings likely represent cirrhosis and ascites although one cannot exclude a perihepatic hematoma given history of trauma. There is gastric distention. Skeletal structures: No acute fractures are visualized. IMPRESSION: 1. Technically limited study in setting of trauma as no intravenous contrast was administered. 2. No pneumothorax. Small to moderate right pleural effusion. Trace left pleural effusion 3. Mild dependent atelectasis 4. No pneumothorax 5. Scalloped liver surface and perihepatic fluid. Electronically signed by: Ravin Liz M.D. 02/26/2018 7:[address] OF THE CERVICAL SPINE CLINICAL HISTORY: Neck pain status post trauma COMPARISON STUDY: 10/13/2017 CT DOSE: TECHNIQUE: CT scan of the cervical spine was performed from the skull base to the thoracic inlet. Images are reviewed in the axial, sagittal, and coronal planes. IV contrast was not administered for this examination. A dose lowering technique was utilized adhering to the principles of ALARA. FINDINGS: The visualized portions of the lung apices reveal no evidence of pneumothorax. There is a thyroid goiter. There is a 6 mm right lobe nodule The prevertebral soft tissues are normal. No fractures or subluxations are visualized. There are multilevel degenerative changes IMPRESSION: No evidence of acute fracture or traumatic subluxation. Electronically signed by: Ravin Liz M.D. 02/26/2018 7:[address] SCAN OF THE ABDOMEN AND PELVIS WITHOUT CONTRAST CLINICAL HISTORY: Abdominal pain status post trauma COMPARISON STUDY: No previous studies for comparison. TECHNIQUE: CT scan of the abdomen and pelvis was performed from the lung bases to the proximal femurs. Images are reviewed in the axial, sagittal, and coronal planes. IV contrast was not administered for this examination. A dose lowering technique was utilized adhering to the principles of ALARA. CT DOSE: FINDINGS: Lower chest: There are coronary artery calcifications. There is a small to moderate right pleural effusion. There is trace left pleural effusion. Liver: The liver has a somewhat scalloped appearance. There is perihepatic fluid present. While likely representing cirrhosis and ascites, in the setting of trauma is not possible with certainty to exclude a hepatic injury with a subcapsular hematoma. Clinical correlation in this regard is advocated. A contrast enhanced study could be obtained in follow-up as deemed clinically necessary. Gallbladder: Not well visualized and likely either absent or contracted Spleen: Normal in size and attenuation. Pancreas: Unremarkable. Adrenal glands: There is mild adrenal gland thickening Kidneys: There is a 2.5 cm right renal cyst. Bowel: There is mild elevation left hemidiaphragm. There is gastric distention. There is no pneumoperitoneum. There is extensive sigmoid diverticulosis. Peritoneum: There is ascites. No free intraperitoneal air is visualized. There is fluid within both inguinal canals extending into both scrotum. Vasculature: The abdominal aorta is normal in course and caliber. Adenopathy: None. Pelvic viscera: The bladder, and pelvic viscera are unremarkable. Skeletal structures: The bones are osteopenic. Mild wedging of the L1 vertebral body is likely old. There are multilevel degenerative changes. There is an age-indeterminate fracture of the anterior cortex of the S3 vertebra. IMPRESSION: 1. Technically limited study in the setting of trauma as no intravenous contrast was administered 2. Moderate right pleural effusion and trace left pleural effusion 3. Scalloped contour of the liver with perihepatic fluid. While the findings likely represent cirrhosis and ascites, in the setting of trauma is not possible with certainty to exclude a liver injury with perihepatic hematoma 4. No evidence of pneumoperitoneum 5. Ascitic fluid extending into both inguinal canals and scrotum 6. Anasarca 7. Age-indeterminate subtle fracture involving the anterior cortex of the S3 vertebra Electronically signed by: Ravin Liz M.D. 02/26/2018 7:45 PM Laboratory Results 02/26/18 17:30 Red Blood Count 2.68, Mean Corpuscular Volume 96.3, Mean Corpuscular Hemoglobin 32.1, Mean Corpuscular Hemoglobin Concent 33.3, Mean Platelet Volume 10.0, Neutrophils (%) (Auto) 75.3, Lymphocytes (%) (Auto) 9.8, Monocytes (%) (Auto) 10.4, Eosinophils (%) (Auto) 3.7, Basophils (%) (Auto) 0.4, Neutrophils # (Auto ) 3.62, Lymphocytes # (Auto) 0.47, Monocytes # (Auto) 0.50, Eosinophils # (Auto ) 0.18, Basophils # (Auto) 0.02 02/26/18 17:30 Test 02/26/18 17:30 02/26/18 17:33 White Blood Count 4.81 K/uL (4.8-10.8) Red Blood Count 2.68 M/uL (4.7-6.1) Hemoglobin 8.6 g/dL (14.0-18.0) Hematocrit 25.8 % (42-52) Mean Corpuscular Volume 96.3 fL (80-100) Mean Corpuscular Hemoglobin 32.1 pg (25-34) Mean Corpuscular Hemoglobin Concent 33.3 g/dl (32-36) Platelet Count 191 K/uL (130-400) Mean Platelet Volume 10.0 fL (7.4-10.4) Neutrophils (%) (Auto) 75.3 % Lymphocytes (%) (Auto) 9.8 % Monocytes (%) (Auto) 10.4 % Eosinophils (%) (Auto) 3.7 % Basophils (%) (Auto) 0.4 % Neutrophils # (Auto) 3.62 K/uL (1.4-6.5) Lymphocytes # (Auto) 0.47 K/uL (1.2-3.4) Monocytes # (Auto) 0.50 K/uL (0.11-0.59) Eosinophils # (Auto) 0.18 K/uL (0-0.5) Basophils # (Auto) 0.02 K/uL (0-0.2) RDW Standard Deviation 54.4 fL (36.4-46.3) RDW Coefficient of Variation 15.5 % (11.5-14.5) Immature Granulocyte % (Auto) 0.4 % Immature Granulocyte # (Auto) 0.02 K/uL (0.00-0.02) Ovalocytes 1+ Prothrombin Time 12.4 SECONDS (9.0-12.0) Prothromb Time International Ratio 1.2 (0.9-1.1) Anion Gap 8.0 mmol/L (3-11) Est Creatinine Clear Calc Drug Dose 26.2 ml/min Estimated GFR () 36.6 Estimated GFR (Non- 31.6 BUN/Creatinine Ratio 26.2 (10-20) Calcium Level 8.9 mg/dl (8.5-10.1) Magnesium Level 2.2 mg/dl (1.8-2.4) Total Bilirubin 0.4 mg/dl (0.2-1) Aspartate Amino Transf (AST/SGOT) 18 U/L (15-37) Alanine Aminotransferase (ALT/SGPT) 15 U/L (12-78) Alkaline Phosphatase 196 U/L (45-117) Troponin I 0.036 ng/ml (0-0.045) Total Protein 7.5 gm/dl (6.4-8.2) Albumin 3.3 gm/dl (3.4-5.0) Globulin 4.2 gm/dl (2.5-4.0) Albumin/Globulin Ratio 0.8 (0.9-2) Thyroid Stimulating Hormone (TSH) 0.796 uIu/ml (0.300-4.500) Chemistry Specimen Hemolysis Urine Color YELLOW Urine Appearance CLEAR (CLEAR) Urine pH 5.5 (4.5-7.5) Urine Specific [place] 1.016 (1.000-1.030) Urine Protein 1+ (NEG) Urine Glucose (UA) NEG (NEG) Urine Ketones NEG (NEG) Urine Occult Blood 1+ (NEG) Urine Nitrite NEG (NEG) Urine Bilirubin NEG (NEG) Urine Urobilinogen NEG (NEG) Urine Leukocyte Esterase NEG (NEG) Urine WBC (Auto) 1-5 /hpf (0-5) Urine RBC (Auto) 5-10 /hpf (0-4) Urine Hyaline Casts (Auto) 1-5 /lpf (0-5) Urine Epithelial Cells (Auto) 5-10 /lpf (0-5) Urine Bacteria (Auto) NEG (NEG) Laboratory results per my review. ECG Per My Interpretation Indication: other (Dysrhythmia) Rate (beats per minute): 88 Rhythm: atrial fibrillation Findings: no acute ischemic change, left axis deviation, other (Normal QRS and QTc, low voltage throughout) Comparison ECG Date: 10/13/2017 Change: no significant change ED Course 1632: The patient was evaluated in room C12A. A complete history and physical exam was performed. 183: I reevaluated the patient and updated him on his findings. 2001: Upon reevaluation, the patient is feeling better. I discussed the findings and the treatment plan with the patient. He verbalizes agreement and understanding. He was discharged to the long-term. Medical Decision Patient sent here for medical screening evaluation and clearance to be placed in a long-term emergently as arranged by the office of aging. He and his are both here. Patient here without any new complaints. Patient with ongoing lower extremity edema which she states is chronic. Ongoing superficial wounds which are being followed by wound care. Patient's son is concerned about several recent falls, CAT scan performed as a precaution, no acute or life -threatening injury noted. 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 It sounds confirm that this was chronic. Discussed with them his hematuria need for follow-up. No evidence of UTI, pyelonephritis , obstructive neuropathy, or renal injury secondary to falls. Medication Reconcilliation Current Medication List: was personally reviewed by me Blood Pressure Screening Patient's blood pressure: Normal blood pressure Blood pressure disposition: Referred to PCP Impression Primary Impression: Failure to thrive Additional Impressions: Impaired mobility and ADLs Hematuria Atrial fibrillation Anemia CKD (chronic kidney disease), stage IV Scribe Attestation The scribe's documentation has been prepared under my direction and personally reviewed by me in its entirety. I confirm that the note above accurately reflects all work, treatment, procedures, and medical decision making performed by me. Departure Information Dispostion Transfer Acute Care Facility Referrals Lauren Sands D.O. (PCP) Forms HOME CARE DOCUMENTATION FORM, IMPORTANT VISIT INFORMATION, WORK / SCHOOL INSTRUCTIONS Patient Instructions [facility] Problem Qualifiers Primary Impression: Failure to thrive Failure to thrive age range: in adult Qualified Codes: R62.7 - Adult failure to thrive Additional Impressions: Hematuria Hematuria type: unspecified type Qualified Codes: R31.9 - Hematuria, unspecified Atrial fibrillation Atrial fibrillation type: chronic Qualified Codes: I48.2 - Chronic atrial fibrillation Anemia Anemia type: unspecified type Qualified Codes: D64.9 - Anemia, unspecified
--- NOTE | 2018-02-26 17:36 | DIAGNOSTIC IMAGING REPORT ---
CHEST ONE VIEW PORTABLE HISTORY: 87 years-old Male fall acute chest injury status post fall COMPARISON: Chest radiograph 01/31/2018 TECHNIQUE: Portable AP view of the chest FINDINGS: Cardiac silhouette is enlarged, unchanged. Calcification of the aorta. Patient is rotated to the left. Mild left hemidiaphragmatic elevation. No pneumothorax. Trace right pleural effusion with subsegmental bibasilar opacities appearing unchanged. Pulmonary vascular congestion without overt pulmonary edema. Degenerative changes of the shoulders and spine. IMPRESSION: 1. Cardiomegaly with mild pulmonary vascular congestion. 2. Unchanged appearance of the subsegmental bibasilar opacities favoring atelectasis with pneumonitis difficult to exclude. 3. Trace right pleural effusion. The above report was generated using voice recognition software. It may contain grammatical, syntax or spelling errors. Electronically signed by: Too Zavala M.D. 02/26/2018 5:34 PM Dictated Date/Time: 02/26/2018 5:31 PM
[2018-02-26] MEDS ORDERED: POTA10TA32 PO (17:43)
[2018-02-26] MEDS ORDERED: MULTCAP31 PO (17:44)
[2018-02-26] MEDS ORDERED: BETA0.053 TOP (17:44)
[2018-02-26 17:52] LABS: BASO % 0.4 %; BASO ABS # 0.02 K/uL (0-0.2); EOS % 3.7 %; EOS ABS # 0.18 K/uL (0-0.5); HEMATOCRIT 25.8 % (42-52); HEMOGLOBIN 8.6 g/dL (14.0-18.0); IG# 0.02 K/uL (0.00-0.02); LYMPH % 9.8 %; LYMPH ABS # 0.47 K/uL (1.2-3.4); MEAN CELL VOLUME 96.3 fL (80-100); MEAN CORPUSCULAR HEMOGLOBIN 32.1 pg (25-34); MEAN CORPUSCULAR HGB CONC 33.3 g/dl (32-36); MONO % 10.4 %; NEUT % 75.3 %; NEUT ABS # 3.62 K/uL (1.4-6.5); PLATELET COUNT 191 K/uL (130-400); RED CELL DISTRIBUTION WIDTH CV 15.5 % (11.5-14.5); RED CELL DISTRIBUTION WIDTH SD 54.4 fL (36.4-46.3); WHITE BLOOD COUNT 4.81 K/uL (4.8-10.8)
[2018-02-26 18:01] LABS: INR 1.2 (0.9-1.1)
[2018-02-26 18:15] LABS: ALBUMIN 3.3 gm/dl (3.4-5.0); CALCIUM 8.9 mg/dl (8.5-10.1); CREATININE 1.85 mg/dl (0.60-1.40); POTASSIUM 4.6 mmol/L (3.5-5.1)
[2018-02-26 18:25] LABS: TOTAL PROTEIN 7.5 gm/dl (6.4-8.2)
[2018-02-26] MEDS ORDERED: CHOL1000 PO (19:23)
--- NOTE | 2018-02-26 19:27 | DIAGNOSTIC IMAGING REPORT ---
CT HEAD WITHOUT CONTRAST (CT) CLINICAL HISTORY: Head pain status post trauma COMPARISON STUDY: 01/02/2018 TECHNIQUE: Axial CT of the brain is performed from the vertex to the skull base. IV contrast was not administered for this examination. A dose lowering technique was utilized adhering to the principles of ALARA. CT DOSE: 2056.20 mGy.cm FINDINGS: No intra or extra-axial mass lesions are visualized. There is no CT evidence of acute cortical infarction. There is no evidence of midline shift. There is no acute hemorrhage. No calvarial fractures are visualized. There are patchy white matter hypodensities likely on a small vessel basis. There is no evidence of pathologic ventricular dilatation. There is a trace right maxilla sinus air-fluid level. There is an old nasal bone deformity. IMPRESSION: No acute intracranial findings Electronically signed by: Ravin Liz M.D. 02/26/2018 7:25 PM Dictated Date/Time: 02/26/2018 7:24 PM
--- NOTE | 2018-02-26 19:30 | DIAGNOSTIC IMAGING REPORT ---
CT OF THE CERVICAL SPINE CLINICAL HISTORY: Neck pain status post trauma COMPARISON STUDY: 10/13/2017 CT DOSE: TECHNIQUE: CT scan of the cervical spine was performed from the skull base to the thoracic inlet. Images are reviewed in the axial, sagittal, and coronal planes. IV contrast was not administered for this examination. A dose lowering technique was utilized adhering to the principles of ALARA. FINDINGS: The visualized portions of the lung apices reveal no evidence of pneumothorax. There is a thyroid goiter. There is a 6 mm right lobe nodule The prevertebral soft tissues are normal. No fractures or subluxations are visualized. There are multilevel degenerative changes IMPRESSION: No evidence of acute fracture or traumatic subluxation. Electronically signed by: Ravin Liz M.D. 02/26/2018 7:29 PM Dictated Date/Time: 02/26/2018 7:26 PM
--- NOTE | 2018-02-26 19:38 | DIAGNOSTIC IMAGING REPORT ---
(CHEST) THORAX WITHOUT CLINICAL HISTORY: Chest pain status post trauma COMPARISON STUDY: July 2008 CT DOSE: TECHNIQUE: CT of the thorax was performed from the thoracic inlet to the lung bases. Images are reviewed in the axial, sagittal, and coronal planes. IV contrast was not administered for this examination. A dose lowering technique was utilized adhering to the principles of ALARA. FINDINGS: Thyroid: There is a thyroid goiter present. Thoracic aorta: There is no evidence of aneurysmal dilatation. There is no evidence of acute aortic injury given the limitations of a noncontrast study. Heart: The heart is enlarged. There are coronary artery calcifications. Lungs and pleural spaces: There is no pneumothorax. There is a gcjok-gj-[id number] right pleural effusion. There is a trace left pleural effusion. There is bibasilar atelectasis. Mediastinum: There is mild elevation of the left hemidiaphragm. There is no pathologic adenopathy. Tootie: There is no evidence of pathologic hilar adenopathy given the limitations of a noncontrast study Axilla: There is no evidence of axillary lymphadenopathy Upper abdomen: There is perihepatic fluid. Liver surface is scalloped. The findings likely represent cirrhosis and ascites although one cannot exclude a perihepatic hematoma given history of trauma. There is gastric distention. Skeletal structures: No acute fractures are visualized. IMPRESSION: 1. Technically limited study in setting of trauma as no intravenous contrast was administered. 2. No pneumothorax. Small to moderate right pleural effusion. Trace left pleural effusion 3. Mild dependent atelectasis 4. No pneumothorax 5. Scalloped liver surface and perihepatic fluid. Electronically signed by: Ravin Liz M.D. 02/26/2018 7:36 PM Dictated Date/Time: 02/26/2018 7:30 PM
--- NOTE | 2018-02-26 19:46 | DIAGNOSTIC IMAGING REPORT ---
CT SCAN OF THE ABDOMEN AND PELVIS WITHOUT CONTRAST CLINICAL HISTORY: Abdominal pain status post trauma COMPARISON STUDY: No previous studies for comparison. TECHNIQUE: CT scan of the abdomen and pelvis was performed from the lung bases to the proximal femurs. Images are reviewed in the axial, sagittal, and coronal planes. IV contrast was not administered for this examination. A dose lowering technique was utilized adhering to the principles of ALARA. CT DOSE: FINDINGS: Lower chest: There are coronary artery calcifications. There is a small to moderate right pleural effusion. There is trace left pleural effusion. Liver: The liver has a somewhat scalloped appearance. There is perihepatic fluid present. While likely representing cirrhosis and ascites, in the setting of trauma is not possible with certainty to exclude a hepatic injury with a subcapsular hematoma. Clinical correlation in this regard is advocated. A contrast enhanced study could be obtained in follow-up as deemed clinically necessary. Gallbladder: Not well visualized and likely either absent or contracted Spleen: Normal in size and attenuation. Pancreas: Unremarkable. Adrenal glands: There is mild adrenal gland thickening Kidneys: There is a 2.5 cm right renal cyst. Bowel: There is mild elevation left hemidiaphragm. There is gastric distention. There is no pneumoperitoneum. There is extensive sigmoid diverticulosis. Peritoneum: There is ascites. No free intraperitoneal air is visualized. There is fluid within both inguinal canals extending into both scrotum. Vasculature: The abdominal aorta is normal in course and caliber. Adenopathy: None. Pelvic viscera: The bladder, and pelvic viscera are unremarkable. Skeletal structures: The bones are osteopenic. Mild wedging of the L1 vertebral body is likely old. There are multilevel degenerative changes. There is an age-indeterminate fracture of the anterior cortex of the S3 vertebra. IMPRESSION: 1. Technically limited study in the setting of trauma as no intravenous contrast was administered 2. Moderate right pleural effusion and trace left pleural effusion 3. Scalloped contour of the liver with perihepatic fluid. While the findings likely represent cirrhosis and ascites, in the setting of trauma is not possible with certainty to exclude a liver injury with perihepatic hematoma 4. No evidence of pneumoperitoneum 5. Ascitic fluid extending into both inguinal canals and scrotum 6. Anasarca 7. Age-indeterminate subtle fracture involving the anterior cortex of the S3 vertebra Electronically signed by: Ravin Liz M.D. 02/26/2018 7:45 PM Dictated Date/Time: 02/26/2018 7:37 PM
[2018-02-26 20:20] VITALS: BP 126/78; PULSE 98; O2SAT 98
[2018-02-26] MEDS ORDERED: PRLSR20 PO (23:32)
[2018-02-26] MEDS ORDERED: ALLO300T2 PO (23:32)
[2018-02-27] MEDS ORDERED: ACET325T82 PO (16:43)
[2018-02-27] MEDS ORDERED: BISA1SUP4 RE (16:43)
[2018-02-27] MEDS ORDERED: SODI1ENE RE (16:43)
== END 2018-02-26 20:20 | disposition other institution (70) ==
LOC: C.EDB 16:24 → C.EDC 20:20
DX: R62.7 Adult failure to thrive (principal); R26.9 Unspecified abnormalities of gait and mobility; R31.9 Hematuria, unspecified; I48.2 Chronic atrial fibrillation; D63.1 Anemia in chronic kidney disease; N18.4 Chronic kidney disease, stage 4 (severe); R60.0 Localized edema; S40.811A Abrasion of right upper arm, initial encounter; S40.812A Abrasion of left upper arm, initial encounter; W22.8XXA Striking against or struck by other objects, initial encounter; E78.5 Hyperlipidemia, unspecified; I51.9 Heart disease, unspecified; I27.0 Primary pulmonary hypertension; Z79.82 Long term (current) use of aspirin; Z79.899 Other long term (current) drug therapy

== ENCOUNTER 2018-02-27 13:44 | Inpatient (IN) | payer OTHER ==
[~2018-02-27] VITALS: Ht 177.8 cm; Wt 64.1 kg
[2018-02-27] VITALS (12 sets, daily range): BP systolic 100–135; BP diastolic 43–87; PULSE 54–81; TEMP 36.3–37; O2SAT 92–100; Ht 177.8 cm; Wt 64.1 kg
[~2018-02-27 13:44] MED LIST changes: +ALLO300T2 PO; +BETA0.053 TOP; +CHOL1000 PO; -CLOB-85 TOP; -MULT-190 PO; +MULTCAP31 PO; -POTA10CA28 PO; +POTA10TA32 PO; +PRLSR20 PO
[2018-02-27 14:41] LABS: INR 1.3 (0.9-1.1); PTT PATIENT 28.2 SECONDS (21.0-31.0)
[2018-02-27 14:46] LABS: HEMATOCRIT 17.9 % (42-52); HEMOGLOBIN 5.8 g/dL (14.0-18.0); MEAN CELL VOLUME 96.8 fL (80-100); MEAN CORPUSCULAR HEMOGLOBIN 31.4 pg (25-34); MEAN CORPUSCULAR HGB CONC 32.4 g/dl (32-36); MEAN PLATELET VOLUME 9.1 fL (7.4-10.4); PLATELET COUNT 181 K/uL (130-400); RED CELL DISTRIBUTION WIDTH CV 15.6 % (11.5-14.5); RED CELL DISTRIBUTION WIDTH SD 55.5 fL (36.4-46.3); WHITE BLOOD COUNT 4.96 K/uL (4.8-10.8)
[2018-02-27] MEDS ORDERED: FAMOTIDINE 20MG/5ML IV PUSH IV STA (14:50)
--- NOTE | 2018-02-27 14:56 | EMERGENCY ROOM VISIT NOTE ---
History Report prepared by Zunildaibderrick: Samantha Lee Under the Supervision of: Dr. Germán López D.O. First contact with patient: 14:25 Chief Complaint: GI ASSESSMENT Stated Complaint: EVAL Nursing Triage Summary: pt arrives BLS from [facility]. per EMS pt arrived at [facility] last night and is being sent back to the ED for "failure to thrive evaluation". asked pt about his symptoms. pt states "i don't know, they said I was bleeding from somewhere" . no paperwork sent with pt from [facility]. pt poor historian and responds to questions with "i don't understand" History of Present Illness The patient is a 87 year old male who presents to the Emergency Room with complaints of need for an assessment beginning prior to arrival. History limited secondary to patient's AMS. The patient is from [facility]. EMS reports the patient was sent to the ED for a "failure to thrive evaluation." The patient states he has some pain. Source of History: EMS Onset: prior to arrival Quality: other (need for assessment) Note: Associated symptom: pain Review of Systems History limited secondary to patient's AMS. Past Medical & Surgical Medical Problems: (1) Chronic anemia (2) Chronic atrial fibrillation (3) CKD (chronic kidney disease), stage IV (4) Dyslipidemia (5) Pulmonary hypertension (6) Right-sided heart failure (7) Severe aortic stenosis (8) Venous stasis Surgical Problems: (1) H/O arthroscopy of shoulder (2) H/O inguinal hernia repair (3) History of cataract surgery Family History Lung disease Social History Smoking Status: Unknown if Ever Smoked Alcohol Use: none Drug Use: none Marital Status: Housing Status: lives with significant other Occupation Status: retired Current/Historical Medications Scheduled Allopurinol (Zyloprim), 300 MG PO DAILY Aspirin (Aspirin), 81 MG PO DAILY Cholecalciferol (Vitamin D3), 1,000 INTER.UNIT PO DAILY Furosemide (Lasix), 40 MG PO BID Metoprolol Tartrate (Lopressor) (Lopressor), 50 MG PO BID Multiple Vitamins W/ Minerals (Ocuvite Lutein), 1 CAP PO DAILY Omeprazole (Prilosec), 20 MG PO DAILY Potassium Chloride Microencaps (Potassium Chloride Er), 10 MEQ PO BID Scheduled PRN Acetaminophen (Apap), 2 TABS PO Q6H PRN for Pain or Fever Betamethasone Dipropionate (To (Betamethasone Dipropionat), 1 APPLN TOP BID PRN for Rash Bisacodyl (Bisacodyl Laxative), 1 SUPP RE Q6H PRN for Constipation Sodium Phosphates (Fleet Enema Six Pack), 1 DOSE RE Q6H PRN for Constipation Allergies Coded Allergies: No Known Allergies (Unverified , 02/27/18) Physical Exam Vital Signs Date Time Temp Pulse Resp B/P (MAP) Pulse Ox O2 Delivery O2 Flow Rate FiO2 02/27/18 16:14 146/65 02/27/18 15:44 62 27 137/57 97 02/27/18 15:14 69 27 02/27/18 14:44 62 30 99 02/27/18 14:14 36.7 67 14 147/59 96 Room Air 02/27/18 14:14 68 32 95 02/27/18 14:03 61 02/27/18 13:51 147/59 02/27/18 13:50 36.7 67 14 147/59 96 Room Air Physical Exam GENERAL: Patient is listless, responds to questions slowly but words are difficult to understand. EYES: The conjunctivae are clear. The pupils are round and reactive. EARS, NOSE, MOUTH AND THROAT: The nose is without any evidence of any deformity. Mucous membranes are dry. Tongue is midline NECK: The neck is nontender and supple. RESPIRATORY: Normal respiratory effort is noted. There is no evidence of wheezing rhonchi or rales to auscultation. CARDIOVASCULAR: Regular rate and rhythm noted. There no murmurs rubs or gallops normal S1 normal S2 GASTROINTESTINAL: The abdomen is soft. Bowel sounds are present in all quadrants. Abdomen is nontender. MUSCULOSKELETAL/EXTREMITIES: There is no evidence of gross deformity. Full range of motion is noted in the hips and shoulders. SKIN: Multiple skin tears and bruises in different stages of healing, consistent with patient's history of recent falls. Poor skin turgor noted. NEUROLOGIC: Patient follows commands slowly. Strength is symmetric but diminished. Medical Decision & Procedures ER Provider Diagnostic Interpretation: Radiology results as stated below per my review and radiologist interpretation: CHEST ONE VIEW PORTABLE HISTORY: 87 years-old Male EVALUATE ALTERED MENTAL STATUS/WEAKNESS acute weakness with altered mental status COMPARISON: Chest radiograph 02/26/[address] chest 02/26/2018 TECHNIQUE: Portable AP view of the chest FINDINGS: Cardiac silhouette is enlarged. Calcification of the aorta. Mild pulmonary vascular congestion without overt pulmonary edema. No pneumothorax. Small bilateral pleural effusions redemonstrated with subsegmental bibasilar opacities. Degenerative changes of the shoulders and spine. Mild left hemidiaphragm elevation with gaseous distention of the stomach. IMPRESSION: 1. Cardiomegaly without overt pulmonary edema. 2. Small bilateral pleural effusions with persistent subsegmental bibasilar opacities. The above report was generated using voice recognition software. It may contain grammatical, syntax or spelling errors. Electronically signed by: Too Zavala M.D. 02/27/2018 3:03 PM Dictated Date/Time: 02/27/2018 3:01 PM LEFT ANKLE 3 VIEWS HISTORY: swelling COMPARISON: None. FINDINGS: There is no fracture or dislocation. Mild soft tissue swelling. Plantar and posterior calcaneal spurs. 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 Mild vascular calcifications. No radiopaque foreign bodies. IMPRESSION: 1. No fracture or dislocation within the left ankle. 2. Moderate osteoarthritis. 3. Diffuse soft tissue swelling. Electronically signed by: Kevan Carlos M.D. 02/27/2018 3:03 PM Dictated Date/Time: 02/27/2018 3:02 PM Laboratory Results Test 02/27/18 13:55 02/27/18 14:01 02/27/18 14:08 Urine Color YELLOW Urine Appearance CLEAR (CLEAR) Urine pH 5.0 (4.5-7.5) Urine Specific Isabel 1.018 (1.000-1.030) Urine Protein NEG (NEG) Urine Glucose (UA) NEG (NEG) Urine Ketones NEG (NEG) Urine Occult Blood TRACE (NEG) Urine Nitrite NEG (NEG) Urine Bilirubin NEG (NEG) Urine Urobilinogen NEG (NEG) Urine Leukocyte Esterase NEG (NEG) Urine WBC (Auto) 1-5 /hpf (0-5) Urine RBC (Auto) 0-4 /hpf (0-4) Urine Hyaline Casts (Auto) 1-5 /lpf (0-5) Urine Epithelial Cells (Auto) 5-10 /lpf (0-5) Urine Bacteria (Auto) NEG (NEG) Stool Occult Blood POSITIVE (NEGATIVE) Prothrombin Time 13.2 SECONDS (9.0-12.0) Prothromb Time International Ratio 1.3 (0.9-1.1) Activated Partial Thromboplast Time 28.2 SECONDS (21.0-31.0) Partial Thromboplastin Ratio 1.1 Magnesium Level 2.1 mg/dl (1.8-2.4) Total Bilirubin 0.4 mg/dl (0.2-1) Aspartate Amino Transf (AST/SGOT) 11 U/L (15-37) Alanine Aminotransferase (ALT/SGPT) 12 U/L (12-78) Alkaline Phosphatase 145 U/L (45-117) Total Creatine Kinase 54 U/L (39-308) Creatine Kinase MB 1.1 ng/ml (0.5-3.6) Creatine Kinase MB Ratio 2.0 (0-3.0) Total Protein 6.3 gm/dl (6.4-8.2) Albumin 2.9 gm/dl (3.4-5.0) Globulin 3.4 gm/dl (2.5-4.0) Albumin/Globulin Ratio 0.8 (0.9-2) Thyroid Stimulating Hormone (TSH) 0.601 uIu/ml (0.300-4.500) Laboratory results per my review. Medications Administered Medications (Trade) Dose Ordered Sig/Jewel Route Start Time Stop Time Status Last Admin Dose Admin Famotidine (Pepcid 20mg Iv Push) 20 mg ONE STAT IV 02/27/18 14:50 02/27/18 14:51 DC 02/27/18 15:24 20 MG Pantoprazole Sodium 40 mg/ Syringe 10 ml @ 5 mls/min NOW ONCE IV 02/27/18 15:00 02/27/18 15:01 DC 02/27/18 15:25 5 MLS/MIN Sodium Chloride 1,000 ml @ 100 mls/hr Q10H IV 02/27/18 15:45 03/29/18 15:44 02/28/18 01:59 100 MLS/HR Pantoprazole Sodium 40 mg/ Dextrose 110 ml @ 480 mls/hr NOW STAT IV 02/27/18 15:45 02/27/18 15:58 DC 02/27/18 16:34 480 MLS/HR Pantoprazole Sodium 40 mg/ Dextrose 100 ml @ 20 mls/hr Q5H IV 02/27/18 16:00 02/27/18 20:59 DC 02/27/18 16:34 20 MLS/HR ED Course 1427: The patient was evaluated in room C9. A complete history and physical examination were performed. 1450: Ordered Famotidine 20 mg IV. 1458: I discussed the case with AKIN Banegas, [facility] hospitalist. The patient will be evaluated for further management. 1500: Ordered Pantoprazole Sodium 40 mg/ Syringe 10 ml @ 55 mls/min IV. 1559: I updated the patient's son on his condition and the treatment plan. The son provided consent to a blood transfusion. Medical Decision Etiologies such as metabolic, infection, hypoglycemia, electrolyte abnormalities , cardiac sources, intracerebral event, toxicologic, neurologic, diverticulosis , AVM, coagulopathy, colitis, inflammatory bowel disease, malignancy, Chata- Velez tear, esophagitis, peptic ulcer disease, variceal bleed, gastritis, epistaxis, fissure, hemorrhoids, as well as others were entertained. Nursing notes reviewed. Additional history is obtained from the patient's family member. Additional history is obtained from the patient's previous ER charts. The patient is an 87-year-old male who presented to the emergency department for an evaluation of not being well. The patient was recently seen at our facility and then sent to a longterm. Him and his were both in poor health at home and were not felt to be safe to be alone anymore. They are both transferred to [facility]. The patient returns today because he was not felt to be acting himself. The patient was awake and did follow some commands but did not completely understand why he was here although at one point he did tell me that he thought he was bleeding. He was found to have significant anemia as well as heme positive stool. He was treated with Pepcid and Protonix. He was also ordered a blood transfusion. I discussed the patient's laboratory and radiographic studies with him as well as with his son. I was able to consent him for blood through his son by the phone. I discussed his case with the on- call [facility] hospitalist group. They have agreed to evaluate patient in the emergency department for further management and disposition. Medication Reconcilliation Current Medication List: was personally reviewed by me Blood Pressure Screening Patient's blood pressure: Elevated blood pressure Blood pressure disposition: Referred to PCP (referred to hospitalist) Consults Time Called: 1451 Consulting Physician: AKIN Banegas [facility] hospitalist Returned Call: [phone] I discussed the case with AKIN Banegas [facility]. The patient will be evaluated for further management. Impression Primary Impression: Weakness Additional Impressions: GI bleed Anemia Scribe Attestation The scribe's documentation has been prepared under my direction and personally reviewed by me in its entirety. I confirm that the note above accurately reflects all work, treatment, procedures, and medical decision making performed by me. Departure Information Dispostion Being Evaluated By Hospitalist Referrals Lauren Sands D.O. (PCP) Patient Instructions My [facility] Problem Qualifiers Additional Impressions: GI bleed GI bleed type/associated pathology: unspecified gastrointestinal hemorrhage type Qualified Codes: K92.2 - Gastrointestinal hemorrhage, unspecified Anemia Anemia type: unspecified type Qualified Codes: D64.9 - Anemia, unspecified
[2018-02-27 14:59] LABS: ALBUMIN 2.9 gm/dl (3.4-5.0); ALKALINE PHOSPHATASE 145 U/L (45-117); ALT/SGPT 12 U/L (12-78); AST/SGOT 11 U/L (15-37); BLOOD UREA NITROGEN 100 mg/dl (7-18); CALCIUM 8.9 mg/dl (8.5-10.1); CARBON DIOXIDE 29 mmol/L (21-32); CREATININE 1.97 mg/dl (0.60-1.40); GLUCOSE 89 mg/dl (70-99); POTASSIUM 4.9 mmol/L (3.5-5.1); SODIUM 140 mmol/L (136-145); TOTAL PROTEIN 6.3 gm/dl (6.4-8.2)
[2018-02-27] MEDS ORDERED: PANTOprazole INJ 40 MG in SYRINGE 0 ML IV ONE (15:00)
--- NOTE | 2018-02-27 15:04 | DIAGNOSTIC IMAGING REPORT ---
LEFT ANKLE 3 VIEWS HISTORY: swelling COMPARISON: None. FINDINGS: There is no fracture or dislocation. Mild soft tissue swelling. Plantar and posterior calcaneal spurs. 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 Mild vascular calcifications. No radiopaque foreign bodies. IMPRESSION: 1. No fracture or dislocation within the left ankle. 2. Moderate osteoarthritis. 3. Diffuse soft tissue swelling. Electronically signed by: Kevan Carlos M.D. 02/27/2018 3:03 PM Dictated Date/Time: 02/27/2018 3:02 PM
--- NOTE | 2018-02-27 15:04 | DIAGNOSTIC IMAGING REPORT ---
CHEST ONE VIEW PORTABLE HISTORY: 87 years-old Male EVALUATE ALTERED MENTAL STATUS/WEAKNESS acute weakness with altered mental status COMPARISON: Chest radiograph 02/26/[address] chest 02/26/2018 TECHNIQUE: Portable AP view of the chest FINDINGS: Cardiac silhouette is enlarged. Calcification of the aorta. Mild pulmonary vascular congestion without overt pulmonary edema. No pneumothorax. Small bilateral pleural effusions redemonstrated with subsegmental bibasilar opacities. Degenerative changes of the shoulders and spine. Mild left hemidiaphragm elevation with gaseous distention of the stomach. IMPRESSION: 1. Cardiomegaly without overt pulmonary edema. 2. Small bilateral pleural effusions with persistent subsegmental bibasilar opacities. The above report was generated using voice recognition software. It may contain grammatical, syntax or spelling errors. Electronically signed by: Too Zavala M.D. 02/27/2018 3:03 PM Dictated Date/Time: 02/27/2018 3:01 PM
[2018-02-27] MEDS ORDERED: ACETAMINOPHEN 325 MG TAB PO PRN (15:45)
[2018-02-27] MEDS ORDERED: PANTOprazole INJ 40 MG in DEXTROSE 5% 100ML 100 ML IV STA (15:45)
[2018-02-27] MEDS ORDERED: ONDANSETRON INJ 2 MG/ML 2 ML VIAL IV PRN (15:45)
[2018-02-27 15:53] LABS: CKMB 1.1 ng/ml (0.5-3.6)
--- NOTE | 2018-02-27 15:59 | DIAGNOSTIC IMAGING REPORT ---
CT HEAD WITHOUT CONTRAST (CT) CLINICAL HISTORY: Altered mental status. Weakness. COMPARISON STUDY: February 26, 2018 TECHNIQUE: Axial CT of the brain is performed from the vertex to the skull base. IV contrast was not administered for this examination. A dose lowering technique was utilized adhering to the principles of ALARA. CT DOSE: 1228.53 mGy.cm FINDINGS: No intra or extra-axial mass lesions are visualized. There is no CT evidence of acute cortical infarction. There is no evidence of midline shift. There is no acute hemorrhage. No calvarial fractures are visualized. There are patchy white matter hypodensities likely on a small vessel basis. There is no evidence of pathologic ventricular dilatation. There is no evidence of acute sinusitis IMPRESSION: No acute intracranial findings Electronically signed by: Ravin Liz M.D. 02/27/2018 3:58 PM Dictated Date/Time: 02/27/2018 3:57 PM
[2018-02-27] MEDS ORDERED: PANTOprazole INJ 40 MG in DEXTROSE 5% 100ML IV SCH (16:00)
[2018-02-27] MEDS ORDERED: BISA1SUP4 RE (16:43)
[2018-02-27] MEDS ORDERED: SODI1ENE RE (16:43)
[2018-02-27] MEDS ORDERED: ACET325T82 PO (16:43)
--- NOTE | 2018-02-27 18:30 | History and Physical ---
History & Physical Date & Time of Service: Feb 27, 2018 ~ 15:15 Chief Complaint: Black stools Primary Care Physician: Lauren Sands D.O. History of Present Illness 87-year-old male who presents the ED from [facility] for evaluation of black stools. Patient was seen in the ED yesterday from home for frequent falls and failure to thrive. Patient was discharged to [facility] at that time. History is somewhat limited from the patient due to his mental state and hard of hearing. Per the staff at [facility], around 1:00 this afternoon the patient had a large bowel movement that was black diarrhea. Patient reported indigestion and left upper quadrant pain at that time. Patient was then referred to the ER for further evaluation. At the time my exam, patient is mostly without complaint. He denies chest pain or shortness of breath. No lightheadedness, dizziness, diaphoresis, syncopal events. He denies abdominal pain and nausea. No other recent illnesses, fevers, chills. He denies any urinary symptoms. In the ED, patient was found to have a hemoglobin of 5.8 ( was 8.6 yesterday). He is hemodynamically stable. Rectal exam revealed black stool which was heme positive. Patient was given Protonix 40 mg IV and Pepcid 20 mg IV. Past Medical/Surgical History Medical Problems: (1) Chronic anemia Status: Chronic (2) Chronic atrial fibrillation Status: Chronic (3) CKD (chronic kidney disease), stage IV Status: Chronic (4) Dyslipidemia Status: Chronic (5) Pulmonary hypertension Status: Chronic (6) Right-sided heart failure Status: Chronic (7) Severe aortic stenosis Status: Chronic (8) Venous stasis Status: Chronic Surgical Problems: (1) H/O arthroscopy of shoulder Status: Chronic (2) H/O inguinal hernia repair Status: Chronic (3) History of cataract surgery Status: Chronic Family History Noncontributory secondary to patient's advanced age Social History Smoking Status: Never Smoker Alcohol Use: none Immunizations History of Influenza Vaccine: Yes Influenza Vaccine Date: Apr 12, 2017 History of Tetanus Vaccine?: Yes Tetanus Immunization Date: Aug 26, 2012 History of Pneumococcal: Yes Pneumococcal Date: Feb 10, 2016 Allergies Coded Allergies: No Known Allergies (Unverified , 02/27/18) Home Medications Scheduled Allopurinol (Zyloprim), 300 MG PO DAILY Aspirin (Aspirin), 81 MG PO DAILY Cholecalciferol (Vitamin D3), 1,000 INTER.UNIT PO DAILY Furosemide (Lasix), 40 MG PO BID Metoprolol Tartrate (Lopressor) (Lopressor), 50 MG PO BID Multiple Vitamins W/ Minerals (Ocuvite Lutein), 1 CAP PO DAILY Omeprazole (Prilosec), 20 MG PO DAILY Potassium Chloride Microencaps (Potassium Chloride Er), 10 MEQ PO BID Scheduled PRN Acetaminophen (Apap), 2 TABS PO Q6H PRN for Pain or Fever Betamethasone Dipropionate (To (Betamethasone Dipropionat), 1 APPLN TOP BID PRN for Rash Bisacodyl (Bisacodyl Laxative), 1 SUPP RE Q6H PRN for Constipation Sodium Phosphates (Fleet Enema Six Pack), 1 DOSE RE Q6H PRN for Constipation Review of Systems Reviewed however somewhat limited secondary to patient's mental status and hard of hearing, pertinent positives and negatives as noted in HPI Physical Exam Vital Signs Date Time Temp Pulse Resp B/P (MAP) Pulse Ox O2 Delivery O2 Flow Rate FiO2 02/27/18 16:19 61 29 98 02/27/18 16:14 146/65 02/27/18 15:44 62 27 137/57 97 02/27/18 15:14 69 27 02/27/18 14:44 62 30 99 02/27/18 14:14 36.7 67 14 147/59 96 Room Air 02/27/18 14:14 68 32 95 02/27/18 14:03 61 02/27/18 13:51 147/59 02/27/18 13:50 36.7 67 14 147/59 96 Room Air General Appearance: no apparent distress, + cachetic, + thin Head: normocephalic, + pertinent finding (Scattered bruising noted) Eyes: normal inspection, EOMI, sclerae normal ENT: + pertinent finding (Hard of hearing, mucous membranes dry) Neck: supple, no JVD, trachea midline Respiratory/Chest: no respiratory distress, + decreased breath sounds Cardiovascular: no edema, normal peripheral pulses, + bradycardia, + systolic murmur, + irregularly irregular Abdomen/GI: normal bowel sounds, non tender, soft, no organomegaly Extremities/Musculoskelatal: normal inspection, no calf tenderness, normal capillary refill Neurologic/Psych: no motor/sensory deficits, alert, + disoriented (To time), + pertinent finding (Neuro and orientation exam somewhat limited secondary to patient's hard of hearing) Skin: + pertinent finding (Scattered ecchymosis and abrasions noted over body in various stages of healing; chronic venous changes noted to the bilateral lower extremities) Diagnostics Laboratory Results Results Past 24 Hours Test 02/27/18 14:01 02/27/18 14:08 02/27/18 14:36 02/27/18 15:47 Range/Units Stool Occult Blood POSITIVE NEGATIVE White Blood Count 4.96 4.8-10.8 K/uL Red Blood Count 1.85 4.7-6.1 M/uL Hemoglobin 5.8 14.0-18.0 g/dL Hematocrit 17.9 42-52 % Mean Corpuscular Volume 96.8 80-100 fL Mean Corpuscular Hemoglobin 31.4 25-34 pg Mean Corpuscular Hemoglobin Concent 32.4 32-36 g/dl RDW Standard Deviation 55.5 36.4-46.3 fL RDW Coefficient of Variation 15.6 11.5-14.5 % Platelet Count 181 130-400 K/uL Mean Platelet Volume 9.1 7.4-10.4 fL Prothrombin Time 13.2 9.0-12.0 SECONDS Prothromb Time International Ratio 1.3 0.9-1.1 Activated Partial Thromboplast Time 28.2 21.0-31.0 SECONDS Partial Thromboplastin Ratio 1.1 Sodium Level 140 136-145 mmol/L Potassium Level 4.9 3.5-5.1 mmol/L Chloride Level 105 98-107 mmol/L Carbon Dioxide Level 29 21-32 mmol/L Anion Gap 7.0 3-11 mmol/L Blood Urea Nitrogen 100 7-18 mg/dl Creatinine 1.97 0.60-1.40 mg/dl Estimated GFR () 33.9 Estimated GFR (Non- 29.3 BUN/Creatinine Ratio 50.7 10-20 Random Glucose 89 70-99 mg/dl Calcium Level 8.9 8.5-10.1 mg/dl Magnesium Level 2.1 1.8-2.4 mg/dl Total Bilirubin 0.4 0.2-1 mg/dl Aspartate Amino Transf (AST/SGOT) 11 15-37 U/L Alanine Aminotransferase (ALT/SGPT) 12 12-78 U/L Alkaline Phosphatase 145 45-117 U/L Total Creatine Kinase 54 39-308 U/L Creatine Kinase MB 1.1 0.5-3.6 ng/ml Creatine Kinase MB Ratio 2.0 0-3.0 Troponin I 0.085 0-0.045 ng/ml Total Protein 6.3 6.4-8.2 gm/dl Albumin 2.9 3.4-5.0 gm/dl Globulin 3.4 2.5-4.0 gm/dl Albumin/Globulin Ratio 0.8 0.9-2 Thyroid Stimulating Hormone (TSH) 0.601 0.300-4.500 uIu/ml Test 02/27/18 16:28 Range/Units Diagnostic Radiology HEAD CT IMPRESSION: No acute intracranial findings CXR IMPRESSION: 1. Cardiomegaly without overt pulmonary edema. 2. Small bilateral pleural effusions with persistent subsegmental bibasilar opacities. LEFT ANKLE XR IMPRESSION: 1. No fracture or dislocation within the left ankle. 2. Moderate osteoarthritis. 3. Diffuse soft tissue swelling. Impression Assessment and Plan ACUTE ON CHRONIC ANEMIA GI BLEED, LIKELY UPPER -Admit to ICU -Patient presenting from [facility] with reports of black diarrhea; was seen in the ED yesterday for evaluation of frequent falls and failure to thrive - patient was transferred to [facility] at that time -In the ED, rectal exam revealed black stool which is heme positive; hemoglobin 5.8 (noted to be 8.6 yesterday, patient's baseline ~ 9-10) -On aspirin 81 mg daily, no other antiplatelets or anticoagulants noted -Currently hemodynamically stable -S/P IV Pepcid and IV Protonix in the ED, will continue with Protonix drip -Transfuse 2 units PRBC, start serial H&H 1 hour after PRBC transfusion - monitor volume status closely secondary to right-sided CHF and severe aortic stenosis, may need Lasix in between units -N.p.o. -GI consult, case discussed with AKIN Lobato ELEVATED TROPONIN -Likely demand ischemia secondary to profound anemia -No reports of chest pain -Continue to cycle cardiac enzymes CHRONIC ATRIAL FIBRILLATION -Rate controlled on metoprolol, will continue -Currently not anticoagulated secondary to fall risk RIGHT-SIDED HEART FAILURE, SEVERE AORTIC STENOSIS -Hold Lasix for now secondary to GI bleeding -Monitor volume status closely while receiving PRBC CKD STAGE IV - baseline creat runs in the low to mid twos - creat noted to be 1.9 today - continue to monitor, avoid nephrotoxic agents when able DVT PROPHYLAXIS -SCDs due to GI bleeding CODE STATUS -Patient is a full code as per my discussion with patient's son, Robe. Robe reports that he is currently looking for his father's living will and advanced directive and will update us on any changes. DISPOSITION -In my clinical judgment this beneficiary meets acute admission criteria, established by [facility], that includes being hospitalized through two midnights. Attending Addendum Pt was seen and examined. Agreed with Radha GERARDO assessment and plan. 87-year- old male with PMH of CKD IV, chronic Afib, severe aortic stenosis, congestive heart failure presents the ED from [facility] for evaluation of black stools. Patient was seen in the ED yesterday from home for frequent falls and failure to thrive. As per staff, Pt had a large episode of dark diarrhea. Present to the ER with Hgb 5.8. Will be monitor in the ICU. Will transfuse 2 units PRBC. Starting on protonix drip. GI consult. Will keep NPO after midnight for EGD in am. Monitor H/H. MD Jennifer Resuscitation Status VTE Prophylaxis Will order VTE Prophylaxis: Yes
--- NOTE | 2018-02-27 18:30 | Critical Care Consultation ---
Critical Care Consultation Date of Consultation: Feb 27, 2018. Attending Physician: Caroline Rodriguez M.D. Reason for Consultation: GI bleeding History of Present Illness 87-year-old male who presents to the ED from [facility] for evaluation of melena. Patient was seen in the ED yesterday frequent falls. Patient was discharged to [facility]. History is s obtained from prior records secondary to patient's reported baseline encephalopathy. Per the staff at [facility], around 1:00 this afternoon the patient had a large bowel movement that was black diarrhea. Patient was transferred to the emergency department for further evaluation. He denies chest pain or shortness of breath. No lightheadedness, dizziness, diaphoresis. He denies abdominal pain and nausea. The patient was found to have a hemoglobin of 5.8 (was 8.6 yesterday). Rectal exam revealed black stool which was heme positive. Patient was given Protonix 40 mg IV and Pepcid 20 mg IV. Family History Lung disease Social History Smoking Status: Former Smoker Drug Use: none Marital Status: Housing Status: lives with significant other Occupation Status: retired Allergies Coded Allergies: No Known Allergies (Unverified , 02/27/18) Home Medications Scheduled Allopurinol (Zyloprim), 300 MG PO DAILY Aspirin (Aspirin), 81 MG PO DAILY Cholecalciferol (Vitamin D3), 1,000 INTER.UNIT PO DAILY Furosemide (Lasix), 40 MG PO BID Metoprolol Tartrate (Lopressor) (Lopressor), 50 MG PO BID Multiple Vitamins W/ Minerals (Ocuvite Lutein), 1 CAP PO DAILY Omeprazole (Prilosec), 20 MG PO DAILY Potassium Chloride Microencaps (Potassium Chloride Er), 10 MEQ PO BID Scheduled PRN Acetaminophen (Apap), 2 TABS PO Q6H PRN for Pain or Fever Betamethasone Dipropionate (To (Betamethasone Dipropionat), 1 APPLN TOP BID PRN for Rash Bisacodyl (Bisacodyl Laxative), 1 SUPP RE Q6H PRN for Constipation Sodium Phosphates (Fleet Enema Six Pack), 1 DOSE RE Q6H PRN for Constipation Current Inpatient Medications Current Inpatient Medications Medications (Trade) Dose Ordered Sig/Jewel Route Start Time Stop Time Status Last Admin Dose Admin Acetaminophen (Tylenol Tab) 650 mg Q4H PRN PO 02/27/18 15:45 9/1/18 15:44 Ondansetron HCl (Zofran Inj) 4 mg Q6H PRN IV 02/27/18 15:45 03/29/18 15:44 Sodium Chloride 1,000 ml @ 100 mls/hr Q10H IV 02/27/18 15:45 03/29/18 15:44 Pantoprazole Sodium 40 mg/ Dextrose 100 ml @ 20 mls/hr Q5H IV 02/27/18 16:00 02/27/18 20:59 02/27/18 16:34 20 MLS/HR Allopurinol (Zyloprim Tab) 300 mg DAILY PO 02/28/18 09:00 03/30/18 08:59 Metoprolol Tartrate (Lopressor Tab) 50 mg BID PO 02/27/18 21:00 03/29/18 20:59 Review of Systems As noted above Physical Exam Date Time Temp Pulse Resp B/P (MAP) Pulse Ox O2 Delivery O2 Flow Rate FiO2 02/27/18 17:00 36.6 62 16 103/45 02/27/18 16:40 36.7 61 29 146/65 98 02/27/18 16:19 61 29 98 02/27/18 16:14 146/65 02/27/18 15:44 62 27 137/57 97 02/27/18 15:14 69 27 02/27/18 14:44 62 30 99 02/27/18 14:14 36.7 67 14 147/59 96 Room Air 02/27/18 14:14 68 32 95 02/27/18 14:03 61 02/27/18 13:51 147/59 02/27/18 13:50 36.7 67 14 147/59 96 Room Air General Appearance: no apparent distress Head: normocephalic, atraumatic Neck: normal range of motion, no tenderness Respiratory: breath sounds normal Cardiovasular: regular rate/rhythm Abdomen: non tender Upper Extremities: no edema Neuro: alert, confused Laboratory Results Last 24 Hours Test 02/27/18 14:01 02/27/18 14:08 02/27/18 14:36 02/27/18 15:47 Stool Occult Blood POSITIVE White Blood Count 4.96 K/uL Red Blood Count 1.85 M/uL Hemoglobin 5.8 g/dL Hematocrit 17.9 % Mean Corpuscular Volume 96.8 fL Mean Corpuscular Hemoglobin 31.4 pg Mean Corpuscular Hemoglobin Concent 32.4 g/dl RDW Standard Deviation 55.5 fL RDW Coefficient of Variation 15.6 % Platelet Count 181 K/uL Mean Platelet Volume 9.1 fL Prothrombin Time 13.2 SECONDS Prothromb Time International Ratio 1.3 Activated Partial Thromboplast Time 28.2 SECONDS Partial Thromboplastin Ratio 1.1 Sodium Level 140 mmol/L Potassium Level 4.9 mmol/L Chloride Level 105 mmol/L Carbon Dioxide Level 29 mmol/L Anion Gap 7.0 mmol/L Blood Urea Nitrogen 100 mg/dl Creatinine 1.97 mg/dl Estimated GFR () 33.9 Estimated GFR (Non- 29.3 BUN/Creatinine Ratio 50.7 Random Glucose 89 mg/dl Calcium Level 8.9 mg/dl Magnesium Level 2.1 mg/dl Total Bilirubin 0.4 mg/dl Aspartate Amino Transf (AST/SGOT) 11 U/L Alanine Aminotransferase (ALT/SGPT) 12 U/L Alkaline Phosphatase 145 U/L Total Creatine Kinase 54 U/L Creatine Kinase MB 1.1 ng/ml Creatine Kinase MB Ratio 2.0 Troponin I 0.085 ng/ml Total Protein 6.3 gm/dl Albumin 2.9 gm/dl Globulin 3.4 gm/dl Albumin/Globulin Ratio 0.8 Thyroid Stimulating Hormone (TSH) 0.601 uIu/ml Test 02/27/18 17:29 Lactic Acid Level 2.6 mmol/L Assessment & Plan Reason Critically Ill: 87-year-old male with GI bleeding PLAN: Neuro: Decreased mental status -Encephalopathy versus dementia -Reportedly not an acute change Resp: Mild hypoxia -Supplemental oxygen as needed CV: History right ventricular failure History chronic atrial fibrillation - Elevation of troponins -Likely demand related ischemia Fluids/Renal: Stage IV chronic kidney disease Lactic acidosis -Trend clinically GI/Nutrition: Melena -On Protonix infusion Heme: Anemia -Acute blood loss secondary to GI losses -Likely component of chronic anemia Endocrine: ICU hyperglycemia protocol Vascular access: Peripheral IVs Code Status: Full I have personally spent 40 minutes of critical care time in the direct management of this patient. This is a life/limb threatening event. This includes time spent evaluating patient, direct bedside care, chart review, placing orders, interpretation of diagnostic studies, discussion with consultants, patient, and/or family members regarding treatment decisions, as well as other required patient management activities. This time is exclusive of all separately billable procedures, and teaching time and separate from and in addition to any other critical care service time.
[2018-02-27] MEDS: METOPROLOL TARTRATE 50 MG TAB PO SCH (20:16)
[2018-02-27] MEDS: PANTOprazole INJ 40 MG in DEXTROSE 5% 100ML 100 ML IV SCH (22:34)
[2018-02-28] VITALS (29 sets, daily range): BP systolic 71–133; BP diastolic 47–73; PULSE 58–84; TEMP 36.2–36.8; O2SAT 90–100
[2018-02-28 00:22] LABS: HEMOGLOBIN 7.1 g/dL (14.0-18.0)
[2018-02-28] MEDS: SODIUM CHLORIDE 0.9% 1000ML 1,000 ML IV SCH ×2 (01:59→21:29)
[2018-02-28 02:13] LABS: HEMATOCRIT 21.4 % (42-52); HEMOGLOBIN 7.5 g/dL (14.0-18.0); MEAN CELL VOLUME 92.2 fL (80-100); MEAN CORPUSCULAR HEMOGLOBIN 32.3 pg (25-34); MEAN PLATELET VOLUME 9.2 fL (7.4-10.4); PLATELET COUNT 167 K/uL (130-400); RED CELL DISTRIBUTION WIDTH CV 15.6 % (11.5-14.5)
[2018-02-28 03:03] LABS: CALCIUM 8.4 mg/dl (8.5-10.1); CREATININE 2.09 mg/dl (0.60-1.40); POTASSIUM 4.7 mmol/L (3.5-5.1)
[2018-02-28] MEDS: PANTOprazole INJ 40 MG in DEXTROSE 5% 100ML 100 ML IV SCH ×4 (03:40→19:03)
[2018-02-28] MEDS: ALLOPURINOL 300 MG TAB PO SCH (07:48)
[2018-02-28] MEDS: METOPROLOL TARTRATE 50 MG TAB PO SCH ×2 (07:48→21:00)
--- NOTE | 2018-02-28 08:54 | Clinical Documentation Query ---
CLINICAL DOCUMENTATION QUERY In your clinical opinion is this patient being managed for: Not my patient; thank you. ( ) Chronic RV systolic CHF ( ) Not Agree ( ) Other explanation of clinical findings (No explanation is considered a No Response) ( ) Unable to determine ( ) Need to Discuss (Phone CDS or qliq) (No discussion is considered a No Response) The medical record reflects the following clinical findings, treatment, and risk factors. Clinical Indicators: right sided CHF, An Echo from 2013 showed LVEF 50-55%, RV overload, severely dilatated RV with mildly reduced systolic function. Treatment: daily weights, I/O's, Risk Factors: Age, CKD IV, Please clarify and document your clinical opinion in the progress notes and discharge summary. Terms such as "probable", "suspected", "likely", "questionable", "possible", or "still to be ruled out" are acceptable. IF IN AGREEMENT, YOU MUST DOCUMENT ABOVE DIAGNOSTIC STATEMENT IN DAILY PROGRESS NOTES AND DISCHARGE SUMMARY. This document is not part of the patient's record. Thank You, Lazaro Millan, RENEE [phone] & via [email or web address]
[2018-02-28] MEDS ORDERED: ERYTHROMYCIN IV 250 MG in SODIUM CHLORIDE 0.9% 250ML 250 ML IV ONE (09:15)
[2018-02-28] MEDS ORDERED: FENTANYL CITRATE INJ 50 MCG/1 ML 2 ML VIAL ONE (09:38)
[2018-02-28] MEDS ORDERED: PROPOFOL IV EMULSION 10 MG/ML 20 ML VIAL ONE (09:38)
[2018-02-28] MEDS ORDERED: LIDOCAINE HCL 2% 2 ML VIAL (20MG/ML) ONE (09:38)
[2018-02-28] MEDS ORDERED: ONDANSETRON INJ 2 MG/ML 2 ML VIAL ONE (09:38)
[2018-02-28] MEDS ORDERED: SUCCINYLCHOLINE CHLORIDE 20 MG/ML 10 ML VIAL IV ONE (09:38)
[2018-02-28] MEDS ORDERED: DEXAMETHASONE SOD INJ 4 MG/ML VIAL ONE (09:38)
[2018-02-28] MEDS ORDERED: PHENYLEPHRINE 100MCG/ML 5ML SYR IV PRN (09:45)
[2018-02-28] MEDS ORDERED: EpHEDrine SULFATE INJ 50 MG/ML AMP IV PRN (09:45)
[2018-02-28] MEDS ORDERED: ATROPINE SULFATE 0.1 MG/ML 5ML SYR IV PRN (09:45)
[2018-02-28] MEDS ORDERED: ONDANSETRON INJ 2 MG/ML 2 ML VIAL IV PRN (09:45)
--- NOTE | 2018-02-28 09:56 | Gastrointestinal Consultation ---
Gastrointestinal Consultation Date of Consultation: Feb 28, 2018 Attending Physician: Dr. Rodriguez Consulting Physician: Dr. Santiago Reason for Consultation: GI Bleed History of Present Illness Patient is a 87 year old male patient of Dr. Brunner from the [facility] with a hx of A-fib, CKD-4, pulmonary HTN, CHF, severe aortic stenosis was brought to the ED yesterday for melena as he had experienced one large black loose BM yesterday at 1PM. He was admitted for anemia. GI is consulted for a GI bleed. Hb on arrival was 5.8 down from 8 the day prior (seen in the ED for falls). He received 2 units of blood and Hb today is 7.5. BUN is elevated at 100 yesterday , 110 today. He passed two loose black BMs on shift coordinator. He has remained hemodynamically stable. He is on a Protonix drip and is kept NPO. On exam, he is tender in the epigastric area. He is awake, alert, able to answer some questions appropriately but isn't able to tell me where he is or why he was brought here. Unable to tell us the month or year. Past Medical/Surgical History Medical Problems: (1) Bullous pemphigoid Status: Acute (2) Failure to thrive Status: Acute (3) Hematuria Status: Acute (4) Impaired mobility and ADLs Status: Acute (5) Laceration of left upper arm Status: Acute (6) Multiple skin tears Status: Acute Past Medical History: 1. Chronic anemia 2. A-fib 3. CKD-4 4. Hyperlipidemia 5. Pulmonary HTN 6. Right sided heart failure 7. Severe aortic stenosis 8. Chronic venous stasis Past Surgical History: 1. Arthoscopy of shoulder 2. Inguinal hernia repair 3. Cataract surgery. Family History Lung disease Social History Smoking Status: Former Smoker Alcohol Use: none Drug Use: none Marital Status: Housing Status: lives with significant other Occupation Status: retired Allergies Coded Allergies: No Known Allergies (Unverified , 02/27/18) Current Medications Home Meds and Scripts Medications Dose Route/Sig Max Daily Dose Days Date Category Dose Instructions Fleet Enema Six Pack (Sodium Phosphates) 1 Amy Amy 1 Dose RE Q6H PRN 02/27/18 Reported Bisacodyl Laxative (Bisacodyl) 10 Mg Sup 1 Supp RE Q6H PRN 02/27/18 Reported Apap (Acetaminophen) 325 Mg Tab 2 Tabs PO Q6H PRN 02/27/18 Reported Betamethasone Dipropionat (Betamethasone Dipropionate (To) 0.05 % Oin 1 Appln TOP BID PRN 02/26/18 Reported APPLY DIRECTED TO RASH ON LOWER LEGS UNTIL RESOLVED THEN WHEN FLARING Ocuvite Lutein (Multiple Vitamins W/ Minerals) 1 Cap Cap 1 Cap PO DAILY 02/26/18 Reported Potassium Chloride Er (Potassium Chloride Microencaps) 10 Meq Tab 10 Meq PO BID 02/26/18 Reported Vitamin D3 (Cholecalciferol) 1,000 Unit Tab 1,000 Inter.unit PO DAILY 01/15/18 Reported Prilosec (Omeprazole) 20 Mg Capcr 20 Mg PO DAILY 01/01/18 Reported TAKE THIS MEDICATION ONCE DAILY ONE HOUR BEFORE FIRST MEAL OF THE DAY Zyloprim (Allopurinol) 300 Mg Tab 300 Mg PO DAILY 01/01/18 Reported Lopressor (Metoprolol Tartrate) 50 Mg Tab 50 Mg PO BID 01/27/17 Reported Lasix (Furosemide) 40 Mg Tab 40 Mg PO BID 01/27/17 Reported Aspirin 81 Mg Tab 81 Mg PO DAILY 01/27/17 Reported Review of Systems Constitutional: + weakness, No fever, No sweats ENT: No sore throat, No trouble swallowing, No pain on swallowing Respiratory: No shortness of breath Cardiac: No chest pain, No palpitations Abdomen: + see HPI, + pain, + diarrhea, + GI bleeding, No nausea, No vomiting, No constipation Neuro: + memory loss, No balance problems ROS is obtained from the pt who can answer simple questions about pain, etc and from the ED records and the H&P. Physical Exam Date Time Temp Pulse Resp B/P (MAP) Pulse Ox O2 Delivery O2 Flow Rate FiO2 02/28/18 06:02 70 21 133/73 (93) 98 Room Air 02/28/18 05:01 81 20 104/60 (75) 98 Room Air 02/28/18 04:19 74 29 114/65 (81) 100 Room Air 02/28/18 04:01 36.6 66 24 71/47 (55) 98 Room Air 02/28/18 03:01 69 21 110/64 (79) 100 Room Air 02/28/18 02:51 73 20 113/58 (76) 98 Room Air 02/28/18 02:01 69 23 115/68 (84) 95 Room Air 02/28/18 01:33 Room Air 02/28/18 01:01 82 18 106/59 (75) 98 Room Air 02/28/18 00:01 36.8 59 16 118/68 (85) 99 Room Air 02/27/18 23:00 36.7 57 20 115/56 100 02/27/18 22:10 36.8 54 20 104/51 99 02/27/18 21:40 36.7 62 13 113/56 98 02/27/18 21:25 36.8 62 20 110/49 92 02/27/18 21:10 36.9 55 20 104/45 99 02/27/18 20:57 37.0 55 25 100/51 97 02/27/18 20:14 36.8 62 18 135/87 98 02/27/18 20:00 99 Nasal Cannula 2.0 02/27/18 19:15 36.7 63 20 114/45 93 2.0 02/27/18 18:39 36.3 81 16 111/51 94 4.0 02/27/18 18:25 36.5 56 16 107/43 94 4.0 02/27/18 17:00 36.6 62 16 103/45 02/27/18 16:40 36.7 61 29 146/65 98 02/27/18 16:19 61 29 98 02/27/18 16:14 146/65 02/27/18 15:44 62 27 137/57 97 02/27/18 15:14 69 27 02/27/18 14:44 62 30 99 02/27/18 14:14 36.7 67 14 147/59 96 Room Air 02/27/18 14:14 68 32 95 02/27/18 14:03 61 02/27/18 13:51 147/59 02/27/18 13:50 36.7 67 14 147/59 96 Room Air General Appearance: no apparent distress Neck: supple Respiratory/Chest: lungs clear Cardiovascular: regular rate, rhythm, + systolic murmur (3/6 systolic murmur) Abdomen: soft Extremities: non-tender Neurologic/Psych: alert, normal mood/affect, oriented x 3 Skin: no jaundice Laboratory Results Last 24 Hours Test 02/27/18 13:55 8/2/18 14:01 02/27/18 14:08 02/27/18 17:29 Urine Color YELLOW Urine Appearance CLEAR Urine pH 5.0 Urine Specific Kirvin 1.018 Urine Protein NEG Urine Glucose (UA) NEG Urine Ketones NEG Urine Occult Blood TRACE Urine Nitrite NEG Urine Bilirubin NEG Urine Urobilinogen NEG Urine Leukocyte Esterase NEG Urine WBC (Auto) 1-5 /hpf Urine RBC (Auto) 0-4 /hpf Urine Hyaline Casts (Auto) 1-5 /lpf Urine Epithelial Cells (Auto) 5-10 /lpf Urine Bacteria (Auto) NEG Stool Occult Blood POSITIVE White Blood Count 4.96 K/uL Red Blood Count 1.85 M/uL Hemoglobin 5.8 g/dL Hematocrit 17.9 % Mean Corpuscular Volume 96.8 fL Mean Corpuscular Hemoglobin 31.4 pg Mean Corpuscular Hemoglobin Concent 32.4 g/dl RDW Standard Deviation 55.5 fL RDW Coefficient of Variation 15.6 % Platelet Count 181 K/uL Mean Platelet Volume 9.1 fL Prothrombin Time 13.2 SECONDS Prothromb Time International Ratio 1.3 Activated Partial Thromboplast Time 28.2 SECONDS Partial Thromboplastin Ratio 1.1 Sodium Level 140 mmol/L Potassium Level 4.9 mmol/L Chloride Level 105 mmol/L Carbon Dioxide Level 29 mmol/L Anion Gap 7.0 mmol/L Blood Urea Nitrogen 100 mg/dl Creatinine 1.97 mg/dl Estimated GFR () 33.9 Estimated GFR (Non- 29.3 BUN/Creatinine Ratio 50.7 Random Glucose 89 mg/dl Calcium Level 8.9 mg/dl Magnesium Level 2.1 mg/dl Total Bilirubin 0.4 mg/dl Aspartate Amino Transf (AST/SGOT) 11 U/L Alanine Aminotransferase (ALT/SGPT) 12 U/L Alkaline Phosphatase 145 U/L Total Creatine Kinase 54 U/L Creatine Kinase MB 1.1 ng/ml Creatine Kinase MB Ratio 2.0 Troponin I 0.085 ng/ml Total Protein 6.3 gm/dl Albumin 2.9 gm/dl Globulin 3.4 gm/dl Albumin/Globulin Ratio 0.8 Thyroid Stimulating Hormone (TSH) 0.601 uIu/ml Lactic Acid Level 2.6 mmol/L Test 02/28/18 00:10 02/28/18 01:56 02/28/18 06:19 Hemoglobin 7.1 g/dL 7.5 g/dL Hematocrit 21.0 % 21.4 % Lactic Acid Level 0.9 mmol/L Troponin I 0.082 ng/ml 0.080 ng/ml White Blood Count 4.40 K/uL Red Blood Count 2.32 M/uL Mean Corpuscular Volume 92.2 fL Mean Corpuscular Hemoglobin 32.3 pg Mean Corpuscular Hemoglobin Concent 35.0 g/dl RDW Standard Deviation 52.0 fL RDW Coefficient of Variation 15.6 % Platelet Count 167 K/uL Mean Platelet Volume 9.2 fL Sodium Level 138 mmol/L Potassium Level 4.7 mmol/L Chloride Level 106 mmol/L Carbon Dioxide Level 25 mmol/L Anion Gap 7.0 mmol/L Blood Urea Nitrogen 110 mg/dl Creatinine 2.09 mg/dl Est Creatinine Clear Calc Drug Dose 23.4 ml/min Estimated GFR () 31.6 Estimated GFR (Non- 27.2 BUN/Creatinine Ratio 52.8 Random Glucose 95 mg/dl Calcium Level 8.4 mg/dl Bedside Glucose 95 mg/dl Impression Patient is a 87 year old male with melena, acute blood loss anemia. Plan 1. Stat e-mycin 250mg once to empty the stomach. 2. Continue Protonix drip and NPO. 3. I spoke with his son and medial GEOVANNA Pond by phone this morning. I explained the EGD procedure. The son would like to go forward with the procedure. Formal consent was then obtained by Dr. Santiago, Dr. Oneill and witnessed by Mauricio Rowan RN. ATTESTATION: I have performed a history and physical examination of this patient and reviewed the electronic record. Specifically on physical examination there is no apparent abdominal tenderness. I have discussed the case with AKIN Kapadia. The above note reflects my findings, conclusions, and recommendations. Germán Santiago MD
[2018-02-28 10:19] LABS: HEMATOCRIT 19.4 % (42-52); HEMOGLOBIN 6.7 g/dL (14.0-18.0)
--- NOTE | 2018-02-28 10:28 | Critical Care Progress Note ---
Critical Care Progress Note Date of Service Feb 28, 2018. ICU Day ICU Day Number: [address] Lomeli Subjective No overnight events, tolerated transfusion of 2 units packed red blood cells. Early this morning patient had large melanotic stool. Patient CAM positive unable to consent for himself. Objective General Appearance: no apparent distress Head: normocephalic, atraumatic Neck: normal range of motion, no tenderness Respiratory: breath sounds normal Cardiovasular: regular rate/rhythm Abdomen: non tender Upper Extremities: no edema Neuro: alert, confused Assessment & Plan Reason Critically Ill: 87-year-old male with GI bleeding PLAN: Neuro: Decreased mental status -Encephalopathy versus dementia -Reportedly not an acute change Resp: Mild hypoxia -Supplemental oxygen as needed CV: History right ventricular failure History chronic atrial fibrillation - Elevation of troponins -Likely demand related ischemia -Troponins downtrending Fluids/Renal: Stage IV chronic kidney disease Lactic acidosis: Resolved GI/Nutrition: Melena -On Protonix infusion -EGD planned today Heme: Anemia -Acute blood loss secondary to GI losses -Likely component of chronic anemia -Serial H&H every 8 hours Endocrine: ICU hyperglycemia protocol Vascular access: Peripheral IVs Code Status: Full Patient was discussed on multidisciplinary rounds Palliative care consulted made initial contact with signs, will discuss goals of care, patient reportedly has living well will be bringing a copy. I have personally spent 35 minutes of critical care time in the direct management of this patient. This is a life/limb threatening event. This includes time spent evaluating patient, direct bedside care, chart review, placing orders, interpretation of diagnostic studies, discussion with consultants, patient, and/or family members regarding treatment decisions, as well as other required patient management activities. This time is exclusive of all separately billable procedures, and teaching time and separate from and in addition to any other critical care service time. Consults & Procedures Consultants: Gastroenterology Procedures: EGD February 28 2018 Data Medications: Current Inpatient Medications Medications (Trade) Dose Ordered Sig/Jewel Route Start Time Stop Time Status Last Admin Dose Admin Acetaminophen (Tylenol Tab) 650 mg Q4H PRN PO 02/27/18 15:45 03/29/18 15:44 Ondansetron HCl (Zofran Inj) 4 mg Q6H PRN IV 02/27/18 15:45 03/29/18 15:44 Sodium Chloride 1,000 ml @ 100 mls/hr Q10H IV 02/27/18 15:45 03/29/18 15:44 02/28/18 01:59 100 MLS/HR Allopurinol (Zyloprim Tab) 300 mg DAILY PO 02/28/18 09:00 03/30/18 08:59 02/28/18 07:48 300 MG Metoprolol Tartrate (Lopressor Tab) 50 mg BID PO 02/27/18 21:00 03/29/18 20:59 02/28/18 07:48 50 MG Pantoprazole Sodium 40 mg/ Dextrose 110 ml @ 20 mls/hr Q5H IV 02/27/18 23:00 03/29/18 22:29 02/28/18 07:47 20 MLS/HR Ondansetron HCl (Zofran Inj) 4 mg ONE PRN IV 02/28/18 09:45 02/28/18 15:00 Ephedrine Sulfate (EpHEDrine SULFATE INJ) 5 mg Q5M PRN IV 02/28/18 09:45 02/28/18 15:00 Atropine Sulfate (Atropine Sulfate 0.1mg/ml Inj) 0.5 mg Q1M PRN IV 02/28/18 09:45 02/28/18 15:00 Phenylephrine HCl (Guillermo-Synephrine 500MCG/5ML Syr) 100 mcg Q5M PRN IV 02/28/18 09:45 02/28/18 15:00 Vital Signs: Date Time Temp Pulse Resp B/P (MAP) Pulse Ox O2 Delivery O2 Flow Rate FiO2 02/28/18 09:00 74 20 98/59 (72) 99 Room Air 02/28/18 08:00 Room Air 02/28/18 08:00 36.3 83 18 114/59 (77) 100 Room Air 02/28/18 06:02 70 21 133/73 (93) 98 Room Air 02/28/18 05:01 81 20 104/60 (75) 98 Room Air 02/28/18 04:19 74 29 114/65 (81) 100 Room Air 02/28/18 04:01 36.6 66 24 71/47 (55) 98 Room Air 02/28/18 03:01 69 21 110/64 (79) 100 Room Air 02/28/18 02:51 73 20 113/58 (76) 98 Room Air 02/28/18 02:01 69 23 115/68 (84) 95 Room Air 02/28/18 01:33 Room Air 02/28/18 01:01 82 18 106/59 (75) 98 Room Air 02/28/18 00:01 36.8 59 16 118/68 (85) 99 Room Air 02/27/18 23:00 36.7 57 20 115/56 100 02/27/18 22:10 36.8 54 20 104/51 99 02/27/18 21:40 36.7 62 13 113/56 98 02/27/18 21:25 36.8 62 20 110/49 92 02/27/18 21:10 36.9 55 20 104/45 99 02/27/18 20:57 37.0 55 25 100/51 97 02/27/18 20:14 36.8 62 18 135/87 98 02/27/18 20:00 99 Nasal Cannula 2.0 02/27/18 19:15 36.7 63 20 114/45 93 2.0 02/27/18 18:39 36.3 81 16 111/51 94 4.0 02/27/18 18:25 36.5 56 16 107/43 94 4.0 02/27/18 17:00 36.6 62 16 103/45 02/27/18 16:40 36.7 61 29 146/65 98 02/27/18 16:19 61 29 98 02/27/18 16:14 146/65 02/27/18 15:44 62 27 137/57 97 02/27/18 15:14 69 27 02/27/18 14:44 62 30 99 02/27/18 14:14 36.7 67 14 147/59 96 Room Air 02/27/18 14:14 68 32 95 02/27/18 14:03 61 02/27/18 13:51 147/59 02/27/18 13:50 36.7 67 14 147/59 96 Room Air Laboratory Results: Last 24 Hours Test 02/27/18 13:55 02/27/18 14:01 02/27/18 14:08 02/27/18 17:29 Urine Color YELLOW Urine Appearance CLEAR Urine pH 5.0 Urine Specific Wendell 1.018 Urine Protein NEG Urine Glucose (UA) NEG Urine Ketones NEG Urine Occult Blood TRACE Urine Nitrite NEG Urine Bilirubin NEG Urine Urobilinogen NEG Urine Leukocyte Esterase NEG Urine WBC (Auto) 1-5 /hpf Urine RBC (Auto) 0-4 /hpf Urine Hyaline Casts (Auto) 1-5 /lpf Urine Epithelial Cells (Auto) 5-10 /lpf Urine Bacteria (Auto) NEG Stool Occult Blood POSITIVE White Blood Count 4.96 K/uL Red Blood Count 1.85 M/uL Hemoglobin 5.8 g/dL Hematocrit 17.9 % Mean Corpuscular Volume 96.8 fL Mean Corpuscular Hemoglobin 31.4 pg Mean Corpuscular Hemoglobin Concent 32.4 g/dl RDW Standard Deviation 55.5 fL RDW Coefficient of Variation 15.6 % Platelet Count 181 K/uL Mean Platelet Volume 9.1 fL Prothrombin Time 13.2 SECONDS Prothromb Time International Ratio 1.3 Activated Partial Thromboplast Time 28.2 SECONDS Partial Thromboplastin Ratio 1.1 Sodium Level 140 mmol/L Potassium Level 4.9 mmol/L Chloride Level 105 mmol/L Carbon Dioxide Level 29 mmol/L Anion Gap 7.0 mmol/L Blood Urea Nitrogen 100 mg/dl Creatinine 1.97 mg/dl Estimated GFR () 33.9 Estimated GFR (Non- 29.3 BUN/Creatinine Ratio 50.7 Random Glucose 89 mg/dl Calcium Level 8.9 mg/dl Magnesium Level 2.1 mg/dl Total Bilirubin 0.4 mg/dl Aspartate Amino Transf (AST/SGOT) 11 U/L Alanine Aminotransferase (ALT/SGPT) 12 U/L Alkaline Phosphatase 145 U/L Total Creatine Kinase 54 U/L Creatine Kinase MB 1.1 ng/ml Creatine Kinase MB Ratio 2.0 Troponin I 0.085 ng/ml Total Protein 6.3 gm/dl Albumin 2.9 gm/dl Globulin 3.4 gm/dl Albumin/Globulin Ratio 0.8 Thyroid Stimulating Hormone (TSH) 0.601 uIu/ml Lactic Acid Level 2.6 mmol/L Test 02/28/18 00:10 02/28/18 01:56 02/28/18 06:19 02/28/18 09:49 Hemoglobin 7.1 g/dL 7.5 g/dL 6.7 g/dL Hematocrit 21.0 % 21.4 % 19.4 % Lactic Acid Level 0.9 mmol/L Troponin I 0.082 ng/ml 0.080 ng/ml White Blood Count 4.40 K/uL Red Blood Count 2.32 M/uL Mean Corpuscular Volume 92.2 fL Mean Corpuscular Hemoglobin 32.3 pg Mean Corpuscular Hemoglobin Concent 35.0 g/dl RDW Standard Deviation 52.0 fL RDW Coefficient of Variation 15.6 % Platelet Count 167 K/uL Mean Platelet Volume 9.2 fL Sodium Level 138 mmol/L Potassium Level 4.7 mmol/L Chloride Level 106 mmol/L Carbon Dioxide Level 25 mmol/L Anion Gap 7.0 mmol/L Blood Urea Nitrogen 110 mg/dl Creatinine 2.09 mg/dl Est Creatinine Clear Calc Drug Dose 23.4 ml/min Estimated GFR () 31.6 Estimated GFR (Non- 27.2 BUN/Creatinine Ratio 52.8 Random Glucose 95 mg/dl Calcium Level 8.4 mg/dl Bedside Glucose 95 mg/dl
--- NOTE | 2018-02-28 10:54 | [facility] Operative Report ---
Operative Report Operative Date Feb 28, 2018. Pre-Operative Diagnosis Gastrointestinal Bleed Post-Operative Diagnosis Duodenal Ulcer & hemorrhage Procedure(s) Performed Esophagogastroduodenoscopy with control of bleeding Surgeon Dr. Venu Tom Grain Operator Surgeon(s) none Estimated Blood Loss 0mL Findings Duodenal ulcer with visible vessel and oozing. Injected with epinephrine, coagulated with bipolar probe, and clipped. Specimens maintained by endoscopy staff Drains None Anesthesia Type MAC Complication(s) none Disposition yes Indications Melena with anemia Description of Procedure See Provation report I attest to the content of the Intraoperative Record and any orders documented therein. Any exceptions are noted below.
--- NOTE | 2018-02-28 11:15 | GI REPORT ---
Patient Name: Juan Calero Procedure Date: 02/28/2018 10:02 AM Date of : 1930 Admit Type: Inpatient Age: 87 Gender: Male Attending MD: Germán Santiago MD Procedure: Upper GI endoscopy Providers: Germán Santiago MD Referring MD: ENOC SU Indications: Melena Medicines: Monitored Anesthesia Care Complications: No immediate complications. Estimated blood loss: None. Estimated Blood Loss: Estimated blood loss: none. Procedure: Pre-Anesthesia Assessment: - Prior to the procedure, a History and Physical was performed, and patient medications, allergies and sensitivities were reviewed. The patient's tolerance of previous anesthesia was reviewed. - ASA Grade Assessment: IV - A patient with severe systemic disease that is a constant threat to life. After obtaining informed consent, the endoscope was passed under direct vision. Throughout the procedure, the patient's blood pressure, pulse, and oxygen saturations were monitored continuously. The scope was introduced through the mouth, and advanced to the third part of duodenum. The upper GI endoscopy was accomplished with ease. The patient tolerated the procedure well. Findings: The examined esophagus was normal. A small amount of food (residue) was found in the gastric body. One oozing cratered duodenal ulcer with a visible vessel was found in the duodenal bulb. The lesion was 3 mm in largest dimension. Area was successfully injected with 5 mL of a 1:10,000 solution of epinephrine for hemostasis. Coagulation for hemostasis using bipolar probe was successful. For hemostasis, three hemostatic clips were successfully placed (MR conditional). There was no bleeding at the end of the procedure. Impression: - Normal esophagus. - A small amount of food (residue) in the stomach. - One oozing duodenal ulcer with a visible vessel. Injected. Treated with bipolar cautery. Clips (MR conditional) were placed. - No specimens collected. Recommendation: - Return patient to ICU for ongoing care. Germán Santiago M.D. Germán Santiago MD 02/28/2018 11:15:10 AM This report has been signed electronically. Note Initiated On: 02/28/2018 10:02 AM Number of Addenda: 0 I attest to the content of the Intraoperative Record and orders documented therein, exceptions below {[id number]}
--- NOTE | 2018-02-28 11:42 | Anesthesiology Progress Note ---
Anesthesia Post Op Note Date & Time Feb 28, 2018 at 11:41 Vital Signs Pain Intensity: 0 Vital Signs Past 12 Hours Date Time Temp Pulse Resp B/P (MAP) Pulse Ox O2 Delivery O2 Flow Rate FiO2 02/28/18 11:30 36.2 68 24 109/57 95 Oxymask 4 02/28/18 11:20 68 21 115/60 100 Oxymask 10 02/28/18 11:10 72 22 129/65 100 Oxymask 10 02/28/18 11:00 36.1 73 22 125/65 100 Oxymask 10 02/28/18 10:00 76 18 96/48 (64) 97 Room Air 02/28/18 09:00 74 20 98/59 (72) 99 Room Air 02/28/18 08:00 Room Air 02/28/18 08:00 36.3 83 18 114/59 (77) 100 Room Air 02/28/18 06:02 70 21 133/73 (93) 98 Room Air 02/28/18 05:01 81 20 104/60 (75) 98 Room Air 02/28/18 04:19 74 29 114/65 (81) 100 Room Air 02/28/18 04:01 36.6 66 24 71/47 (55) 98 Room Air 02/28/18 03:01 69 21 110/64 (79) 100 Room Air 02/28/18 02:51 73 20 113/58 (76) 98 Room Air 02/28/18 02:01 69 23 115/68 (84) 95 Room Air 02/28/18 01:33 Room Air 02/28/18 01:01 82 18 106/59 (75) 98 Room Air 02/28/18 00:01 36.8 59 16 118/68 (85) 99 Room Air Notes Mental Status: alert / awake / arousable, participated in evaluation Pt Amnestic to Procedure: Yes Nausea / Vomiting: adequately controlled Pain: adequately controlled Airway Patency, RR, SpO2: stable & adequate BP & HR: stable & adequate Hydration State: stable & adequate Anesthetic Complications: no major complications apparent
--- NOTE | 2018-02-28 12:51 | Palliative Care Consultation ---
Consultation Date of Consultation: Feb 28, 2018. Requesting Physician: Dr. Lomeli Reason for Consultation: Goals of care History of Present Illness This 87 year old male patient with PMH listed below presented to the ED last evening with GI bleed from the [facility]. Patient recently has been experiencing failure to thrive and increased weakness with frequent falls. He was being seen in his home by [facility] home nursing, who arranged for him to go to the [facility]. He was evaluated in the ED on 02/26 prior to going to [facility] and was discharged straight to SNF. There, he had black stools. Upon arrival to ED, his hgb was 5.8 (was 8.6 the day prior). Today, he is going for EGD. Given patient's advanced age, there was question of code status and goals of care. Palliative care is consulted. I met with patient in room 107. He is awake, oriented to person and place but otherwise confused. He could not really offer meaningful goals of care conversation or talk about code status. I called patient's son, Robe. He had patient's living will in front of him and went over while I was on phone. Patient states that when he is END-STAGE/TERMINAL, he wants no life-prolonging measures or CPR. However, Robe does not feel that this applies at this time since patient does not have end-stage condition. While I agree that we cannot yet call this end-stage or terminal, I explained that code status should still be addressed on each admission and a person can be DNR long before he/she is terminal. Robe agreed and stated that for now he would like to keep his father a full resuscitation until he is able to talk more with him. Continue current medical treatment. Past Medical/Surgical History Medical History: (1) Chronic anemia Status: Chronic (2) Chronic atrial fibrillation Status: Chronic (3) CKD (chronic kidney disease), stage IV Status: Chronic (4) Dyslipidemia Status: Chronic (5) Pulmonary hypertension Status: Chronic (6) Right-sided heart failure Status: Chronic (7) Severe aortic stenosis Status: Chronic (8) Venous stasis Status: Chronic Surgical Problems: (1) H/O arthroscopy of shoulder Status: Chronic (2) H/O inguinal hernia repair Status: Chronic (3) History of cataract surgery Status: Chronic Social History Smoking Status: Former Smoker History of Alcohol Use: No Drug Use: none Marital Status: Occupation Status: retired Review of Systems unable to obtain full ROS due to confusion and difficulty understanding speech Allergies Coded Allergies: No Known Allergies (Unverified , 02/27/18) Medications Current Inpatient Medications Medications (Trade) Dose Ordered Sig/Jewel Route Start Time Stop Time Status Last Admin Dose Admin Acetaminophen (Tylenol Tab) 650 mg Q4H PRN PO 02/27/18 15:45 03/29/18 15:44 Ondansetron HCl (Zofran Inj) 4 mg Q6H PRN IV 02/27/18 15:45 03/29/18 15:44 Sodium Chloride 1,000 ml @ 100 mls/hr Q10H IV 02/27/18 15:45 03/29/18 15:44 02/28/18 01:59 100 MLS/HR Allopurinol (Zyloprim Tab) 300 mg DAILY PO 02/28/18 09:00 03/30/18 08:59 02/28/18 07:48 300 MG Metoprolol Tartrate (Lopressor Tab) 50 mg BID PO 02/27/18 21:00 03/29/18 20:59 02/28/18 07:48 50 MG Pantoprazole Sodium 40 mg/ Dextrose 110 ml @ 20 mls/hr Q5H IV 02/27/18 23:00 03/29/18 22:29 02/28/18 07:47 20 MLS/HR Ondansetron HCl (Zofran Inj) 4 mg ONE PRN IV 02/28/18 09:45 02/28/18 15:00 Ephedrine Sulfate (EpHEDrine SULFATE INJ) 5 mg Q5M PRN IV 02/28/18 09:45 02/28/18 15:00 Atropine Sulfate (Atropine Sulfate 0.1mg/ml Inj) 0.5 mg Q1M PRN IV 02/28/18 09:45 02/28/18 15:00 Phenylephrine HCl (Guillermo-Synephrine 500MCG/5ML Syr) 100 mcg Q5M PRN IV 02/28/18 09:45 02/28/18 15:00 Physical Exam Date Time Temp Pulse Resp B/P (MAP) Pulse Ox O2 Delivery O2 Flow Rate FiO2 02/28/18 12:43 36.3 65 20 95/55 90 02/28/18 12:13 36.2 76 18 105/62 98 4.0 02/28/18 11:54 36.6 73 18 101/56 90 4.0 02/28/18 11:30 36.2 68 24 109/57 95 Oxymask 4 02/28/18 11:20 68 21 115/60 100 Oxymask 10 02/28/18 11:10 72 22 129/65 100 Oxymask 10 02/28/18 11:00 36.1 73 22 125/65 100 Oxymask 10 02/28/18 10:00 76 18 96/48 (64) 97 Room Air 02/28/18 09:00 74 20 98/59 (72) 99 Room Air 02/28/18 08:00 Room Air 02/28/18 08:00 Room Air 02/28/18 08:00 36.3 83 18 114/59 (77) 100 Room Air 02/28/18 06:02 70 21 133/73 (93) 98 Room Air 02/28/18 05:01 81 20 104/60 (75) 98 Room Air 02/28/18 04:19 74 29 114/65 (81) 100 Room Air 02/28/18 04:01 36.6 66 24 71/47 (55) 98 Room Air 02/28/18 03:01 69 21 110/64 (79) 100 Room Air 02/28/18 02:51 73 20 113/58 (76) 98 Room Air 02/28/18 02:01 69 23 115/68 (84) 95 Room Air 02/28/18 01:33 Room Air 02/28/18 01:01 82 18 106/59 (75) 98 Room Air 02/28/18 00:01 36.8 59 16 118/68 (85) 99 Room Air 02/27/18 23:00 36.7 57 20 115/56 100 02/27/18 22:10 36.8 54 20 104/51 99 02/27/18 21:40 36.7 62 13 113/56 98 02/27/18 21:25 36.8 62 20 110/49 92 02/27/18 21:10 36.9 55 20 104/45 99 02/27/18 20:57 37.0 55 25 100/51 97 02/27/18 20:14 36.8 62 18 135/87 98 02/27/18 20:00 99 Nasal Cannula 2.0 02/27/18 19:15 36.7 63 20 114/45 93 2.0 02/27/18 18:39 36.3 81 16 111/51 94 4.0 02/27/18 18:25 36.5 56 16 107/43 94 4.0 02/27/18 17:00 36.6 62 16 103/45 02/27/18 16:40 36.7 61 29 146/65 98 02/27/18 16:19 61 29 98 02/27/18 16:14 146/65 02/27/18 15:44 62 27 137/57 97 02/27/18 15:14 69 27 02/27/18 14:44 62 30 99 02/27/18 14:14 36.7 67 14 147/59 96 Room Air 02/27/18 14:14 68 32 95 02/27/18 14:03 61 02/27/18 13:51 147/59 02/27/18 13:50 36.7 67 14 147/59 96 Room Air General Appearance: no apparent distress ENT: hearing grossly normal Neck: supple, no JVD Respiratory: no respiratory distress, no accessory muscle use, + decreased breath sounds Cardiovascular: regular rate, rhythm, no edema Neurologic/Psychiatric: alert, + disoriented Laboratory Results Last 24 Hours Test 02/27/18 13:55 02/27/18 14:01 02/27/18 14:08 02/27/18 17:29 Urine Color YELLOW Urine Appearance CLEAR Urine pH 5.0 Urine Specific [place] 1.018 Urine Protein NEG Urine Glucose (UA) NEG Urine Ketones NEG Urine Occult Blood TRACE Urine Nitrite NEG Urine Bilirubin NEG Urine Urobilinogen NEG Urine Leukocyte Esterase NEG Urine WBC (Auto) 1-5 /hpf Urine RBC (Auto) 0-4 /hpf Urine Hyaline Casts (Auto) 1-5 /lpf Urine Epithelial Cells (Auto) 5-10 /lpf Urine Bacteria (Auto) NEG Stool Occult Blood POSITIVE White Blood Count 4.96 K/uL Red Blood Count 1.85 M/uL Hemoglobin 5.8 g/dL Hematocrit 17.9 % Mean Corpuscular Volume 96.8 fL Mean Corpuscular Hemoglobin 31.4 pg Mean Corpuscular Hemoglobin Concent 32.4 g/dl RDW Standard Deviation 55.5 fL RDW Coefficient of Variation 15.6 % Platelet Count 181 K/uL Mean Platelet Volume 9.1 fL Prothrombin Time 13.2 SECONDS Prothromb Time International Ratio 1.3 Activated Partial Thromboplast Time 28.2 SECONDS Partial Thromboplastin Ratio 1.1 Sodium Level 140 mmol/L Potassium Level 4.9 mmol/L Chloride Level 105 mmol/L Carbon Dioxide Level 29 mmol/L Anion Gap 7.0 mmol/L Blood Urea Nitrogen 100 mg/dl Creatinine 1.97 mg/dl Estimated GFR () 33.9 Estimated GFR (Non- 29.3 BUN/Creatinine Ratio 50.7 Random Glucose 89 mg/dl Calcium Level 8.9 mg/dl Magnesium Level 2.1 mg/dl Total Bilirubin 0.4 mg/dl Aspartate Amino Transf (AST/SGOT) 11 U/L Alanine Aminotransferase (ALT/SGPT) 12 U/L Alkaline Phosphatase 145 U/L Total Creatine Kinase 54 U/L Creatine Kinase MB 1.1 ng/ml Creatine Kinase MB Ratio 2.0 Troponin I 0.085 ng/ml Total Protein 6.3 gm/dl Albumin 2.9 gm/dl Globulin 3.4 gm/dl Albumin/Globulin Ratio 0.8 Thyroid Stimulating Hormone (TSH) 0.601 uIu/ml Lactic Acid Level 2.6 mmol/L Test 02/28/18 00:10 02/28/18 01:56 02/28/18 06:19 02/28/18 09:49 Hemoglobin 7.1 g/dL 7.5 g/dL 6.7 g/dL Hematocrit 21.0 % 21.4 % 19.4 % Lactic Acid Level 0.9 mmol/L Troponin I 0.082 ng/ml 0.080 ng/ml White Blood Count 4.40 K/uL Red Blood Count 2.32 M/uL Mean Corpuscular Volume 92.2 fL Mean Corpuscular Hemoglobin 32.3 pg Mean Corpuscular Hemoglobin Concent 35.0 g/dl RDW Standard Deviation 52.0 fL RDW Coefficient of Variation 15.6 % Platelet Count 167 K/uL Mean Platelet Volume 9.2 fL Sodium Level 138 mmol/L Potassium Level 4.7 mmol/L Chloride Level 106 mmol/L Carbon Dioxide Level 25 mmol/L Anion Gap 7.0 mmol/L Blood Urea Nitrogen 110 mg/dl Creatinine 2.09 mg/dl Est Creatinine Clear Calc Drug Dose 23.4 ml/min Estimated GFR () 31.6 Estimated GFR (Non- 27.2 BUN/Creatinine Ratio 52.8 Random Glucose 95 mg/dl Calcium Level 8.4 mg/dl Bedside Glucose 95 mg/dl Assessment & Plan Palliative Performance Scale: 30 % Problem list: Confusion/AMS GI bleed Weakness Goals of care Palliative care recs: -Patient will remain full code for now. -Son, Robe, was reviewing patient's living will. At end-stage or terminal condition, patient does not want any life prolonging measures or CPR. -At this time, patient does not have a terminal or end-stage condition, so patient's son would like him to remain full code until it is able to be further discussed with patient. -EGD today for GI bleed-- GI following. -Patient does have history of right sided heart failure, chronic anemia, recent failure to thrive and weakness, and other comorbidities. Uncertain of long-term goals or disposition on discharge. Thank you kindly for this consult. I will follow as needed. Total time spent 75 minutes with >50% of time spent counseling and discussing goals of care with patient's sonRobe, as well as collaborating with ICU physician and staff to coordinate care.
[2018-02-28 16:19] LABS: HEMOGLOBIN 7.3 g/dL (14.0-18.0)
--- NOTE | 2018-02-28 19:21 | Progress Note ---
Medicine Progress Note Date & Time of Visit: Feb 28, 2018 at 19:02. Subjective Pt was seen and examined Lying in bed with distress Pt had 2 dark loose BM overnight He had EGD done today Denies any chest pain and SOB Objective Last 8 Hrs Date Time Temp Pulse Resp B/P (MAP) Pulse Ox O2 Delivery O2 Flow Rate FiO2 02/28/18 18:00 69 34 98/48 (65) 100 Room Air 02/28/18 16:00 58 24 87/58 (68) 100 Room Air 02/28/18 16:00 Room Air 02/28/18 14:11 36.3 58 20 93/48 100 02/28/18 14:00 72 22 108/58 (75) 100 Room Air 02/28/18 13:31 60 18 105/61 (76) 100 Room Air 02/28/18 13:17 36.4 66 22 100/64 100 4.0 02/28/18 13:00 59 21 109/59 (76) 02/28/18 12:43 36.3 65 20 95/55 90 02/28/18 12:31 84 20 109/61 (77) 92 Room Air 02/28/18 12:13 36.2 76 18 105/62 98 4.0 02/28/18 12:00 69 18 93/52 (66) 98 02/28/18 11:54 36.6 73 18 101/56 90 4.0 02/28/18 11:30 36.2 68 24 109/57 95 Oxymask 4 02/28/18 11:20 68 21 115/60 100 Oxymask 10 02/28/18 11:10 72 22 129/65 100 Oxymask 10 Physical Exam: General- No acute distress Head- atraumatic Eyes- PERRL, EOMI ENT- oropharynx clear Neck- supple, no JVD Lungs- clear to auscultation Heart- regular rhythm Abdomen- normal bowel sounds, soft Extremities- no calf tenderness Neuro- alert, PERRL Skin- warm & dry Laboratory Results: Last 24 Hours Test 02/28/18 00:10 02/28/18 01:56 02/28/18 06:19 02/28/18 09:49 Hemoglobin 7.1 g/dL 7.5 g/dL 6.7 g/dL Hematocrit 21.0 % 21.4 % 19.4 % Lactic Acid Level 0.9 mmol/L Troponin I 0.082 ng/ml 0.080 ng/ml White Blood Count 4.40 K/uL Red Blood Count 2.32 M/uL Mean Corpuscular Volume 92.2 fL Mean Corpuscular Hemoglobin 32.3 pg Mean Corpuscular Hemoglobin Concent 35.0 g/dl RDW Standard Deviation 52.0 fL RDW Coefficient of Variation 15.6 % Platelet Count 167 K/uL Mean Platelet Volume 9.2 fL Sodium Level 138 mmol/L Potassium Level 4.7 mmol/L Chloride Level 106 mmol/L Carbon Dioxide Level 25 mmol/L Anion Gap 7.0 mmol/L Blood Urea Nitrogen 110 mg/dl Creatinine 2.09 mg/dl Est Creatinine Clear Calc Drug Dose 23.4 ml/min Estimated GFR () 31.6 Estimated GFR (Non- 27.2 BUN/Creatinine Ratio 52.8 Random Glucose 95 mg/dl Calcium Level 8.4 mg/dl Bedside Glucose 95 mg/dl Test 02/28/18 16:10 02/28/18 18:41 Hemoglobin 7.3 g/dL Hematocrit 21.0 % Bedside Glucose 98 mg/dl Assessment & Plan GI BLEED ACUTE ON CHRONIC ANEMIA Mostly due to upper GI bleed hbg on admission 5.8 S/P EGD done today showed One oozing duodenal ulcer with a visible vessel. Treated with bipolar cautery and Clips were placed by Gastro team Received 3 units PRBC so far Most recent Hbg 7.3 case discussed with Gastro Continue IV protonix drip for 72 hr, then change to BID Continue monitor in the ICU Monitor H/H Transfuse if hemoglobin less than 7. ELEVATED TROPONIN Likely demand ischemia secondary to profound anemia No reports of chest pain No ischemic changes on EKG Troponin trending down CHRONIC ATRIAL FIBRILLATION Rate control on metoprolol Not on anticoagulant due to fall risks RIGHT-SIDED HEART FAILURE SEVERE AORTIC STENOSIS Hold Lasix for now secondary to GI bleeding Monitor volume status closely while receiving PRBC DYSPHAGIA As per nurse pt was coughing when giving his meds Family reports coughing with medications and food Will consult speech Continue full liquid diet CKD STAGE IV Baseline creat runs in the low to mid twos Creat noted to be 2.09 today Monitor BMP DVT PROPHYLAXIS SCDs due to GI bleeding CODE STATUS FULL CODE Current Inpatient Medications: Current Inpatient Medications Medications (Trade) Dose Ordered Sig/Jewel Route Start Time Stop Time Status Last Admin Dose Admin Acetaminophen (Tylenol Tab) 650 mg Q4H PRN PO 02/27/18 15:45 03/29/18 15:44 Ondansetron HCl (Zofran Inj) 4 mg Q6H PRN IV 02/27/18 15:45 03/29/18 15:44 Sodium Chloride 1,000 ml @ 100 mls/hr Q10H IV 02/27/18 15:45 03/29/18 15:44 02/28/18 01:59 100 MLS/HR Allopurinol (Zyloprim Tab) 300 mg DAILY PO 02/28/18 09:00 03/30/18 08:59 02/28/18 07:48 300 MG Metoprolol Tartrate (Lopressor Tab) 50 mg BID PO 02/27/18 21:00 03/29/18 20:59 02/28/18 07:48 50 MG Pantoprazole Sodium 40 mg/ Dextrose 110 ml @ 20 mls/hr Q5H IV 02/27/18 23:00 03/29/18 22:29 02/28/18 14:35 20 MLS/HR
[2018-03-01] VITALS (32 sets, daily range): BP systolic 80–131; BP diastolic 47–84; PULSE 49–85; TEMP 35.4–36.6; O2SAT 95–100
[2018-03-01 00:51] LABS: HEMATOCRIT 19.9 % (42-52); HEMOGLOBIN 6.8 g/dL (14.0-18.0)
[2018-03-01] MEDS: PANTOprazole INJ 40 MG in DEXTROSE 5% 100ML 100 ML IV SCH ×6 (00:58→23:51)
[2018-03-01] MEDS: SODIUM CHLORIDE 0.9% 1000ML 1,000 ML IV SCH ×4 (05:24→20:49)
--- NOTE | 2018-03-01 08:01 | Progress Note ---
Progress Note Date of Service Mar 01, 2018. Progress Note No events overnight. H/H below 7this AM and orders in place for PRBC. Ulcer yesterday on EGD was treated with triple therapy - (epi, cautery, and clip). - Would keep patient on full liquids today. - Follow H/H. Transfuse PRN - Check BMP daily. - continue the PPI gtt. Judith Li,DO [facility]
[2018-03-01] MEDS: METOPROLOL TARTRATE 50 MG TAB PO SCH ×2 (08:02→20:48)
[2018-03-01] MEDS: ALLOPURINOL 300 MG TAB PO SCH (08:02)
[2018-03-01 08:06] LABS: HEMOGLOBIN 8.1 g/dL (14.0-18.0)
--- NOTE | 2018-03-01 10:23 | Critical Care Progress Note ---
Critical Care Progress Note Date of Service Mar 01, 2018. ICU Day ICU Day Number: [address] Lomeli Subjective No overnight events, tolerated transfusion of 1 units packed red blood cells. Patient CAM positive unable to consent for himself. Objective General Appearance: no apparent distress Head: normocephalic, atraumatic Neck: normal range of motion, no tenderness Respiratory: breath sounds normal Cardiovasular: regular rate/rhythm Abdomen: non tender Upper Extremities: no edema Neuro: alert, confused Assessment & Plan PLAN: Neuro: Decreased mental status -Encephalopathy versus dementia -Reportedly not an acute change Resp: Mild hypoxia -Supplemental oxygen as needed CV: History right ventricular failure History chronic atrial fibrillation - Elevation of troponins -Likely demand related ischemia -Troponins downtrending Fluids/Renal: Stage IV chronic kidney disease Lactic acidosis: Resolved GI/Nutrition: Melena -On Protonix infusion -EGD completed: Duodenal ulcer, injected with epinephrine and coagulated with clipping Heme: Anemia -Acute blood loss secondary to GI losses -Likely component of chronic anemia -Checking H&H twice daily Endocrine: ICU hyperglycemia protocol Vascular access: Peripheral IVs Code Status: Full Patient stable for downgrade out of ICU. Consults & Procedures Consultants: Gastroenterology Procedures: EGD February 28 2018 Data Medications: Current Inpatient Medications Medications (Trade) Dose Ordered Sig/Jewel Route Start Time Stop Time Status Last Admin Dose Admin Acetaminophen (Tylenol Tab) 650 mg Q4H PRN PO 02/27/18 15:45 03/29/18 15:44 Ondansetron HCl (Zofran Inj) 4 mg Q6H PRN IV 02/27/18 15:45 03/29/18 15:44 Sodium Chloride 1,000 ml @ 100 mls/hr Q10H IV 02/27/18 15:45 03/29/18 15:44 03/01/18 05:24 100 MLS/HR Allopurinol (Zyloprim Tab) 300 mg DAILY PO 02/28/18 09:00 03/30/18 08:59 03/01/18 08:02 300 MG Metoprolol Tartrate (Lopressor Tab) 50 mg BID PO 02/27/18 21:00 03/29/18 20:59 03/01/18 08:02 50 MG Pantoprazole Sodium 40 mg/ Dextrose 110 ml @ 20 mls/hr Q5H IV 02/27/18 23:00 03/29/18 22:29 03/01/18 09:40 20 MLS/HR I & O: 24-Hour Column 03/02/18 08:00 Intake Total 332 ml Output Total 125 ml Balance 207 ml Vital Signs: Date Time Temp Pulse Resp B/P (MAP) Pulse Ox O2 Delivery O2 Flow Rate FiO2 03/01/18 08:00 36.1 65 18 114/52 (72) 98 Room Air 03/01/18 08:00 Room Air 03/01/18 07:01 70 21 98/53 (68) 97 03/01/18 06:46 74 24 123/58 (79) 97 03/01/18 06:31 62 28 104/57 (73) 98 03/01/18 06:18 68 18 97/58 (71) 99 03/01/18 06:16 66 20 80/47 (58) 97 03/01/18 06:01 68 26 108/59 (75) 98 03/01/18 05:46 74 24 100/52 (68) 98 03/01/18 05:31 71 25 90/52 (65) 96 03/01/18 05:16 79 24 129/84 (99) 96 03/01/18 05:01 67 23 106/68 (81) 97 03/01/18 04:46 71 21 106/62 (77) 97 03/01/18 04:31 70 26 106/67 (80) 98 03/01/18 04:16 72 26 111/67 (82) 99 03/01/18 04:01 66 22 95/52 (66) 99 03/01/18 03:46 36.3 74 21 98/57 (71) 98 Room Air 03/01/18 03:31 67 24 100/62 (75) 97 Room Air 03/01/18 03:17 36.3 85 23 131/63 (85) 99 Room Air 03/01/18 03:01 64 21 93/52 (66) 97 Room Air 03/01/18 02:46 36.4 73 23 105/63 (77) 97 Room Air 03/01/18 02:31 36.4 77 24 98/59 (72) 97 Room Air 03/01/18 02:16 36.3 68 22 106/59 (75) 98 Room Air 03/01/18 02:09 36.3 72 28 101/64 (76) 97 Room Air 03/01/18 02:02 61 31 92/48 (63) Room Air 03/01/18 01:01 69 25 103/52 (69) 99 Room Air 03/01/18 00:01 74 26 111/61 (78) 97 Room Air 02/28/18 23:01 69 30 91/50 (64) 98 Room Air 02/28/18 22:01 79 29 91/48 (62) 97 Room Air 02/28/18 21:01 67 22 79/51 (60) 96 Room Air 02/28/18 20:01 36.3 69 15 88/47 (61) 99 Room Air 02/28/18 20:00 Room Air 02/28/18 19:01 67 29 84/52 (63) 100 Room Air 02/28/18 18:00 69 34 98/48 (65) 100 Room Air 02/28/18 16:00 58 24 87/58 (68) 100 Room Air 02/28/18 16:00 Room Air 02/28/18 14:11 36.3 58 20 93/48 100 02/28/18 14:00 72 22 108/58 (75) 100 Room Air 02/28/18 13:31 60 18 105/61 (76) 100 Room Air 02/28/18 13:17 36.4 66 22 100/64 100 4.0 02/28/18 13:00 59 21 109/59 (76) 02/28/18 12:43 36.3 65 20 95/55 90 02/28/18 12:31 84 20 109/61 (77) 92 Room Air 02/28/18 12:13 36.2 76 18 105/62 98 4.0 02/28/18 12:00 69 18 93/52 (66) 98 02/28/18 11:54 36.6 73 18 101/56 90 4.0 02/28/18 11:30 36.2 68 24 109/57 95 Oxymask 4 02/28/18 11:20 68 21 115/60 100 Oxymask 10 02/28/18 11:10 72 22 129/65 100 Oxymask 10 02/28/18 11:00 36.1 73 22 125/65 100 Oxymask 10 Laboratory Results: Last 24 Hours Test 02/28/18 16:10 8/3/18 18:41 03/01/18 00:09 03/01/18 06:25 Hemoglobin 7.3 g/dL 6.8 g/dL Hematocrit 21.0 % 19.9 % Bedside Glucose 98 mg/dl 102 mg/dl Test 03/01/18 07:56 Hemoglobin 8.1 g/dL Hematocrit 24.0 %
[2018-03-01 17:15] LABS: HEMATOCRIT 27.4 % (42-52); HEMOGLOBIN 9.2 g/dL (14.0-18.0)
--- NOTE | 2018-03-01 17:48 | Progress Note ---
Medicine Progress Note Date & Time of Visit: Mar 01, 2018 at 17:41. Subjective Pt was seen and examined Sitting in bed with no distress eating lunch He said that he is feeling a little better Denies any chest pain, palpitation and SOB Objective Last 8 Hrs Date Time Temp Pulse Resp B/P (MAP) Pulse Ox O2 Delivery O2 Flow Rate FiO2 03/01/18 16:00 35.4 58 20 100/75 (83) 97 Room Air 03/01/18 14:00 52 20 110/59 (76) 98 Room Air 03/01/18 12:00 36.2 55 21 119/65 (83) 03/01/18 10:00 49 20 98/64 (75) 99 Room Air Physical Exam: General- No acute distress Head- atraumatic Eyes- PERRL, EOMI ENT- oropharynx clear Neck- supple, no JVD Lungs- clear to auscultation Heart- regular rhythm Abdomen- normal bowel sounds, soft Extremities- no calf tenderness Neuro- alert, PERRL Skin- warm & dry Laboratory Results: Last 24 Hours Test 02/28/18 18:41 03/01/18 00:09 03/01/18 06:25 03/01/18 07:56 Bedside Glucose 98 mg/dl 102 mg/dl Hemoglobin 6.8 g/dL 8.1 g/dL Hematocrit 19.9 % 24.0 % Test 03/01/18 17:09 Hemoglobin 9.2 g/dL Hematocrit 27.4 % Assessment & Plan GI BLEED ACUTE ON CHRONIC ANEMIA Mostly due to upper GI bleed hbg on admission 5.8 S/P EGD done today showed One oozing duodenal ulcer with a visible vessel. Treated with epi, cautery and Clips were placed by Gastro team Received 4 units PRBC so far Hbg this morning 8.1, then repeat hgb this afternoon was 9.2 Case discussed with Gastro Continue IV protonix drip for 72 hr, then change to BID On Full liquid diet Monitor H/H Transfuse if hemoglobin less than 7. ELEVATED TROPONIN Likely demand ischemia secondary to profound anemia No reports of chest pain No ischemic changes on EKG Troponin trending down CHRONIC ATRIAL FIBRILLATION Rate control on metoprolol Not on anticoagulant due to fall risks RIGHT-SIDED HEART FAILURE SEVERE AORTIC STENOSIS Hold Lasix for now secondary to GI bleeding Monitor volume status closely while receiving PRBC DYSPHAGIA As per nurse pt was coughing when giving his meds Family reports coughing with medications and food Speech on board No sign of aspiration as per speech CKD STAGE IV Baseline creat runs in the low to mid twos Creat noted to be 2.09 today Monitor BMP DVT PROPHYLAXIS SCDs due to GI bleeding CODE STATUS FULL CODE DISPOSITION Will transfer out of the ICU Current Inpatient Medications: Current Inpatient Medications Medications (Trade) Dose Ordered Sig/Jewel Route Start Time Stop Time Status Last Admin Dose Admin Acetaminophen (Tylenol Tab) 650 mg Q4H PRN PO 02/27/18 15:45 03/29/18 15:44 Ondansetron HCl (Zofran Inj) 4 mg Q6H PRN IV 02/27/18 15:45 03/29/18 15:44 Sodium Chloride 1,000 ml @ 100 mls/hr Q10H IV 02/27/18 15:45 03/29/18 15:44 03/01/18 15:17 100 MLS/HR Allopurinol (Zyloprim Tab) 300 mg DAILY PO 02/28/18 09:00 03/30/18 08:59 03/01/18 08:02 300 MG Metoprolol Tartrate (Lopressor Tab) 50 mg BID PO 02/27/18 21:00 03/29/18 20:59 03/01/18 08:02 50 MG Pantoprazole Sodium 40 mg/ Dextrose 110 ml @ 20 mls/hr Q5H IV 02/27/18 23:00 03/29/18 22:29 03/01/18 15:16 20 MLS/HR
[2018-03-02 03:25] VITALS: BP 108/63; PULSE 62; TEMP 36.4; O2SAT 98
[2018-03-02 06:21] LABS: HEMATOCRIT 23.3 % (42-52); HEMOGLOBIN 7.8 g/dL (14.0-18.0)
[2018-03-02] MEDS: PANTOprazole INJ 40 MG in DEXTROSE 5% 100ML 100 ML IV SCH ×4 (06:21→20:42)
[2018-03-02 06:46] VITALS: BP 114/73; PULSE 60; TEMP 36.4; O2SAT 98
[2018-03-02 06:53] LABS: CALCIUM 8.2 mg/dl (8.5-10.1); CREATININE 1.96 mg/dl (0.60-1.40); PHOSPHORUS 2.5 mg/dl (2.5-4.9); POTASSIUM 3.5 mmol/L (3.5-5.1)
[2018-03-02] MEDS: ALLOPURINOL 300 MG TAB PO SCH (08:37)
[2018-03-02] MEDS: METOPROLOL TARTRATE 50 MG TAB PO SCH ×2 (08:38→20:41)
[2018-03-02 10:40] VITALS: BP 91/53; PULSE 55; TEMP 36.6; O2SAT 97
[2018-03-02] MEDS: SODIUM CHLORIDE 0.9% 1000ML 1,000 ML IV SCH ×2 (11:06→19:35)
[2018-03-02 15:33] VITALS: BP 86/55; PULSE 49; TEMP 36.3; O2SAT 99
--- NOTE | 2018-03-02 18:10 | Progress Note ---
Medicine Progress Note Date & Time of Visit: Mar 02, 2018 at 18:02. Subjective Pt was seen and examined Lying in bed with no distress Son and and other family member at bedside No bloody bowel movement noted today He wants to go home Denies any chest pain, palpitation, and SOB Objective Last 8 Hrs Date Time Temp Pulse Resp B/P (MAP) Pulse Ox O2 Delivery O2 Flow Rate FiO2 03/02/18 15:33 36.3 49 16 86/55 (65) 99 Room Air 03/02/18 10:40 36.6 55 16 91/53 (66) 97 Room Air Physical Exam: General- No acute distress Head- atraumatic Eyes- PERRL, EOMI ENT- oropharynx clear Neck- supple, no JVD Lungs- clear to auscultation Heart- regular rhythm Abdomen- normal bowel sounds, soft Extremities- no calf tenderness Neuro- alert, PERRL Skin- warm & dry Laboratory Results: Last 24 Hours Test 03/02/18 05:58 Hemoglobin 7.8 g/dL Hematocrit 23.3 % Sodium Level 141 mmol/L Potassium Level 3.5 mmol/L Chloride Level 110 mmol/L Carbon Dioxide Level 23 mmol/L Anion Gap 8.0 mmol/L Blood Urea Nitrogen 85 mg/dl Creatinine 1.96 mg/dl Est Creatinine Clear Calc Drug Dose 25.1 ml/min Estimated GFR () 34.1 Estimated GFR (Non- 29.4 BUN/Creatinine Ratio 43.6 Random Glucose 108 mg/dl Calcium Level 8.2 mg/dl Phosphorus Level 2.5 mg/dl Magnesium Level 1.9 mg/dl Assessment & Plan GI BLEED ACUTE ON CHRONIC ANEMIA Mostly due to upper GI bleed hbg on admission 5.8 S/P EGD done today showed One oozing duodenal ulcer with a visible vessel. Treated with epi, cautery and Clips were placed by Gastro team Received 4 units PRBC so far Hbg this morning 8.1, then repeat hgb this afternoon was 9.2 Case discussed with Gastro Continue IV protonix drip for 72 hr, then change to BID On Full liquid diet Monitor H/H Transfuse if hemoglobin less than 7. 8/5 S/P EGD done on 02/28 Hgb today 7.8 Continue IV protonix for 72 hrs, then transition to IV protonix BID Monitor H/H and transfuse if hgb less than 7 Continue full liquid diet, will advance tomorrow Update provided to family member ELEVATED TROPONIN Likely demand ischemia secondary to profound anemia No reports of chest pain No ischemic changes on EKG Troponin trends down CHRONIC ATRIAL FIBRILLATION Rate control on metoprolol Not on anticoagulant due to fall risks RIGHT-SIDED HEART FAILURE SEVERE AORTIC STENOSIS Hold Lasix for now secondary to GI bleeding Monitor volume status closely while receiving PRBC DYSPHAGIA As per nurse pt was coughing when giving his meds Family reports coughing with medications and food Speech on board No sign of aspiration as per speech CKD STAGE IV Baseline creat runs in the low to mid twos Creat noted to be 1.9 today Monitor BMP DVT PROPHYLAXIS SCDs due to GI bleeding CODE STATUS FULL CODE DISPOSITION Continue monitor in tele Current Inpatient Medications: Current Inpatient Medications Medications (Trade) Dose Ordered Sig/Jewel Route Start Time Stop Time Status Last Admin Dose Admin Acetaminophen (Tylenol Tab) 650 mg Q4H PRN PO 02/27/18 15:45 03/29/18 15:44 Ondansetron HCl (Zofran Inj) 4 mg Q6H PRN IV 02/27/18 15:45 03/29/18 15:44 Sodium Chloride 1,000 ml @ 100 mls/hr Q10H IV 02/27/18 15:45 03/29/18 15:44 03/02/18 11:06 100 MLS/HR Allopurinol (Zyloprim Tab) 300 mg DAILY PO 02/28/18 09:00 03/30/18 08:59 03/02/18 08:37 300 MG Metoprolol Tartrate (Lopressor Tab) 50 mg BID PO 02/27/18 21:00 03/29/18 20:59 03/02/18 08:38 50 MG Pantoprazole Sodium 40 mg/ Dextrose 110 ml @ 20 mls/hr Q5H IV 02/27/18 23:00 03/29/18 22:29 03/02/18 16:29 20 MLS/HR
[2018-03-02 19:45] LABS: HEMATOCRIT 22.6 % (42-52); HEMOGLOBIN 7.5 g/dL (14.0-18.0)
[2018-03-02 20:00] VITALS: BP 105/60; PULSE 62; TEMP 36.5; O2SAT 97
[2018-03-02 23:30] VITALS: BP 120/71; PULSE 70; TEMP 36.4; O2SAT 99
[2018-03-03] VITALS (8 sets, daily range): BP systolic 88–121; BP diastolic 57–76; PULSE 60–102; TEMP 36.3–36.6; O2SAT 93–98
[2018-03-03] MEDS: PANTOprazole INJ 40 MG in DEXTROSE 5% 100ML 100 ML IV SCH ×3 (02:06→12:08)
[2018-03-03] MEDS: SODIUM CHLORIDE 0.9% 1000ML 1,000 ML IV SCH ×2 (05:44→15:36)
--- NOTE | 2018-03-03 08:04 | Anesthesiology Progress Note ---
Anesthesia Post Op Note Date & Time Mar 03, 2018 at 08:04 Vital Signs Vital Signs Past 12 Hours Date Time Temp Pulse Resp B/P (MAP) Pulse Ox O2 Delivery O2 Flow Rate FiO2 03/03/18 07:03 36.3 63 20 95/57 (70) 98 03/03/18 03:46 36.5 74 16 111/57 (75) 97 Room Air 03/02/18 23:30 36.4 70 16 120/71 (87) 99 Room Air Notes Mental Status: alert / awake / arousable, participated in evaluation Pt Amnestic to Procedure: Yes Nausea / Vomiting: adequately controlled Pain: adequately controlled Airway Patency, RR, SpO2: stable & adequate BP & HR: stable & adequate Hydration State: stable & adequate Anesthetic Complications: no major complications apparent
[2018-03-03 08:09] LABS: HEMATOCRIT 24.3 % (42-52); HEMOGLOBIN 8.2 g/dL (14.0-18.0); MEAN CELL VOLUME 93.1 fL (80-100); MEAN CORPUSCULAR HEMOGLOBIN 31.4 pg (25-34); MEAN CORPUSCULAR HGB CONC 33.7 g/dl (32-36); MEAN PLATELET VOLUME 9.4 fL (7.4-10.4); PLATELET COUNT 208 K/uL (130-400); RED CELL DISTRIBUTION WIDTH CV 16.4 % (11.5-14.5); RED CELL DISTRIBUTION WIDTH SD 54.9 fL (36.4-46.3); WHITE BLOOD COUNT 4.34 K/uL (4.8-10.8)
[2018-03-03 08:31] LABS: CALCIUM 8.3 mg/dl (8.5-10.1); CREATININE 1.83 mg/dl (0.60-1.40); POTASSIUM 3.6 mmol/L (3.5-5.1)
[2018-03-03] MEDS: ALLOPURINOL 300 MG TAB PO SCH (08:48)
[2018-03-03] MEDS: METOPROLOL TARTRATE 50 MG TAB PO SCH ×2 (08:48→20:07)
--- NOTE | 2018-03-03 14:41 | Palliative Care Progress Note ---
Palliative Care Progress Note Date of Service Mar 03, 2018. Subjective Pt evaluation today including: conversation w/ patient, physical exam, chart review, lab review, review of inpatient medication list Pain: Patient denies pain on exam PO Intake: Fair Voiding: no voiding problems Patient awake alert, was able to state the correct year. Patient knew he was in the hospital. Asked patient if he would want to be resuscitated with shock or chest compressions if his heart stopped-patient said no, asked if he would want to be intubated or placed on a breathing machine, patient again answered no. Patient feels he has decreased quality of life and that he is unable to get around his home and do the things around the house that he used to. Patient stated he is "ready to any time". When asked if he would do anything to facilitate his he answered no. Asked patient if he wanted to sign a POLST form he replied no my son,Robe, signs everything. Will attempt to meet with family when they are present at bedside. The plan is for patient to return to [facility] when medically stable, case management looking into rehab stay. Patient was private pay, resident status prior to admission. No further signs of GI bleeding per nursing. Patient was found to have a duodenal ulcer, treated with epi/cautery/clips, hemoglobin 5.8 on admission, has been stable at 8.2. Patient to be transitioned to IV Protonix twice daily, and advance diet. Review of Systems Constitutional: No fever, No chills ENT: + hearing loss Respiratory: No shortness of breath Cardiac: No chest pain Abdomen: No pain Male : No dysuria Neurologic: + weakness Heme: + problem reported (Patient not aware of any further melena, or blood in stools) Objective Vital Signs Date Time Temp Pulse Resp B/P (MAP) Pulse Ox O2 Delivery O2 Flow Rate FiO2 03/03/18 10:51 36.6 60 20 101/64 (76) 97 03/03/18 08:45 Room Air 03/03/18 07:03 36.3 63 20 95/57 (70) 98 03/03/18 03:46 36.5 74 16 111/57 (75) 97 Room Air 03/02/18 23:30 36.4 70 16 120/71 (87) 99 Room Air 03/02/18 20:00 36.5 62 16 105/60 (75) 97 Room Air 03/02/18 19:50 Room Air 03/02/18 15:33 36.3 49 16 86/55 (65) 99 Room Air Physical Exam General Appearance: no apparent distress Eyes: EOMI ENT: + pertinent finding (Mild KLAWOCK) Respiratory/Chest: no respiratory distress Cardiovascular: regular rate, rhythm, no edema Abdomen: non tender Extremities: no pedal edema Neurologic/Psychiatric: alert Skin: warm/dry Laboratory Results Last 24 Hours Test 03/02/18 19:27 03/03/18 07:54 Hemoglobin 7.5 g/dL 8.2 g/dL Hematocrit 22.6 % 24.3 % White Blood Count 4.34 K/uL Red Blood Count 2.61 M/uL Mean Corpuscular Volume 93.1 fL Mean Corpuscular Hemoglobin 31.4 pg Mean Corpuscular Hemoglobin Concent 33.7 g/dl RDW Standard Deviation 54.9 fL RDW Coefficient of Variation 16.4 % Platelet Count 208 K/uL Mean Platelet Volume 9.4 fL Sodium Level 140 mmol/L Potassium Level 3.6 mmol/L Chloride Level 110 mmol/L Carbon Dioxide Level 23 mmol/L Anion Gap 8.0 mmol/L Blood Urea Nitrogen 70 mg/dl Creatinine 1.83 mg/dl Est Creatinine Clear Calc Drug Dose 26.8 ml/min Estimated GFR () 37.1 Estimated GFR (Non- 32.0 BUN/Creatinine Ratio 38.3 Random Glucose 107 mg/dl Calcium Level 8.3 mg/dl Assessment and Plan (1) GI bleed Status: Acute Assessment & Plan: Patient had a duodenal ulcer injected with epinephrine, cauterized, clips-hemoglobin stable at 8.2, no further signs of GI bleeding (2) Palliative care encounter Assessment & Plan: Discuss CODE STATUS with patient-patient would not want chest compressions, shock or intubation-patient stated he does not sign anything and defer to his son, Robe. Will attempt to meet with family to address CODE STATUS and fill out a POLST form prior to discharge back to [facility]. (3) Duodenal ulcer Status: Acute Assessment & Plan: Duodenal ulcer treated with epi/cautery/clips-on Protonix drip, to transition to IV Protonix twice daily and advance diet (4) Chronic atrial fibrillation Status: Chronic Assessment & Plan: Regular rate on exam, rate well controlled with metoprolol, no CAMERON due to recent GI bleed Palliative Performance Scale: 30 % Continued [facility] stay due to: multiple IV medications needed Discharge planning: uncertain Counseling and Coordination Total time spent 35 minutes with greater than 50% of the time spent at bedside discussing patient's wishes regarding CODE STATUS.
[2018-03-03] MEDS ORDERED: TRAMADOL HCL 50 MG TAB PO ONE (16:45)
--- NOTE | 2018-03-03 17:28 | DIAGNOSTIC IMAGING REPORT ---
ABDOMEN 2VIEW W/PA CHEST RTN CLINICAL HISTORY: GI BLEED dyspnea COMPARISON STUDY: 02/27/2018 FINDINGS: Slight increase in cardiac size. Small bilateral pleural effusions. Increased prominence of pulmonary vasculature. Bowel pattern is nonobstructive. Respiratory motion is present. IMPRESSION: 1. Developing congestive heart failure. 2. No evidence for bowel obstructive change. The above report was generated using voice recognition software. It may contain grammatical, syntax or spelling errors. Electronically signed by: Marcello Webb M.D. 03/03/2018 5:27 PM Dictated Date/Time: 03/03/2018 5:26 PM
[2018-03-03] MEDS ORDERED: FUROSEMIDE INJ 20 MG in SYRINGE 0 ML IV ONE (18:00)
--- NOTE | 2018-03-03 18:28 | Progress Note ---
Medicine Progress Note Date & Time of Visit: Mar 03, 2018 at 17:47. Subjective Pt was seen and examined Lying in bed complaint of abdominal pain that started about 2 hrs ago Pt said that pain seems to improve when his son pushes on the abdomen He said that the pain is 10/10 Denies any chest pain, palpitation, dizziness and SOB Objective Last 8 Hrs Date Time Temp Pulse Resp B/P (MAP) Pulse Ox O2 Delivery O2 Flow Rate FiO2 03/03/18 16:45 102 121/65 (83) 94 Room Air 03/03/18 15:40 36.4 95 18 120/76 (91) 95 Room Air 03/03/18 10:51 36.6 60 20 101/64 (76) 97 Physical Exam: General- No acute distress Head- atraumatic Eyes- PERRL, EOMI ENT- oropharynx clear Neck- supple, no JVD Lungs- clear to auscultation Heart- regular rhythm Abdomen- +tenderness and abdominal distention Extremities- no calf tenderness Neuro- alert, PERRL Skin- warm & dry Laboratory Results: Last 24 Hours Test 03/02/18 19:27 03/03/18 07:54 Hemoglobin 7.5 g/dL 8.2 g/dL Hematocrit 22.6 % 24.3 % White Blood Count 4.34 K/uL Red Blood Count 2.61 M/uL Mean Corpuscular Volume 93.1 fL Mean Corpuscular Hemoglobin 31.4 pg Mean Corpuscular Hemoglobin Concent 33.7 g/dl RDW Standard Deviation 54.9 fL RDW Coefficient of Variation 16.4 % Platelet Count 208 K/uL Mean Platelet Volume 9.4 fL Sodium Level 140 mmol/L Potassium Level 3.6 mmol/L Chloride Level 110 mmol/L Carbon Dioxide Level 23 mmol/L Anion Gap 8.0 mmol/L Blood Urea Nitrogen 70 mg/dl Creatinine 1.83 mg/dl Est Creatinine Clear Calc Drug Dose 26.8 ml/min Estimated GFR () 37.1 Estimated GFR (Non- 32.0 BUN/Creatinine Ratio 38.3 Random Glucose 107 mg/dl Calcium Level 8.3 mg/dl Assessment & Plan GI BLEED ACUTE ON CHRONIC ANEMIA Mostly due to upper GI bleed hbg on admission 5.8 S/P EGD done today showed One oozing duodenal ulcer with a visible vessel. Treated with epi, cautery and Clips were placed by Gastro team Received 4 units PRBC so far Hbg this morning 8.1, then repeat hgb this afternoon was 9.2 Case discussed with Gastro Continue IV protonix drip for 72 hr, then change to BID On Full liquid diet Monitor H/H Transfuse if hemoglobin less than 7. 8/5 S/P EGD done on 02/28 Hgb today 8.2 Continue IV protonix for 72 hrs, then transition to IV protonix BID Monitor H/H and transfuse if hgb less than 7 Continue full liquid diet Update provided to his son ABDOMINAL PAIN Abd xray showed no bowel obstruction Ultram given for pain ELEVATED TROPONIN Likely demand ischemia secondary to profound anemia No reports of chest pain No ischemic changes on EKG Troponin trends down CHRONIC ATRIAL FIBRILLATION Rate control on metoprolol Not on anticoagulant due to fall risks RIGHT-SIDED HEART FAILURE SEVERE AORTIC STENOSIS CXR showed developing congestive heart failure. Denies any SOB lasix 20mg IV given Will resume lasix 40mg BID DYSPHAGIA As per nurse pt was coughing when giving his meds Family reports coughing with medications and food Speech on board No sign of aspiration as per speech CKD STAGE IV Baseline creat runs in the low to mid twos Creat noted to be 1.9 today Monitor BMP DVT PROPHYLAXIS SCDs due to GI bleeding CODE STATUS FULL CODE DISPOSITION Continue monitor in tele Continued [facility] stay due to: multiple IV medications needed Discharge planning: uncertain Current Inpatient Medications: Current Inpatient Medications Medications (Trade) Dose Ordered Sig/Jewel Route Start Time Stop Time Status Last Admin Dose Admin Acetaminophen (Tylenol Tab) 650 mg Q4H PRN PO 02/27/18 15:45 03/29/18 15:44 03/03/18 16:12 650 MG Ondansetron HCl (Zofran Inj) 4 mg Q6H PRN IV 02/27/18 15:45 03/29/18 15:44 Sodium Chloride 1,000 ml @ 60 mls/hr [id number] IV 02/27/18 15:45 03/29/18 15:44 03/03/18 15:36 100 MLS/HR Allopurinol (Zyloprim Tab) 300 mg DAILY PO 02/28/18 09:00 03/30/18 08:59 03/03/18 08:48 300 MG Metoprolol Tartrate (Lopressor Tab) 50 mg BID PO 02/27/18 21:00 03/29/18 20:59 03/02/18 08:38 50 MG
[2018-03-03 19:16] LABS: HEMATOCRIT 30.2 % (42-52); HEMOGLOBIN 9.9 g/dL (14.0-18.0); MEAN CELL VOLUME 93.5 fL (80-100); MEAN CORPUSCULAR HEMOGLOBIN 30.7 pg (25-34); MEAN CORPUSCULAR HGB CONC 32.8 g/dl (32-36); MEAN PLATELET VOLUME 9.3 fL (7.4-10.4); NUCLEATED RED BLOOD CELL ABS 0.02 K/uL (0-0); PLATELET COUNT 267 K/uL (130-400); RED CELL DISTRIBUTION WIDTH CV 16.2 % (11.5-14.5); RED CELL DISTRIBUTION WIDTH SD 53.7 fL (36.4-46.3); WHITE BLOOD COUNT 5.05 K/uL (4.8-10.8)
[2018-03-03 19:42] LABS: CALCIUM 8.3 mg/dl (8.5-10.1); CREATININE 1.97 mg/dl (0.60-1.40); POTASSIUM 3.9 mmol/L (3.5-5.1)
[2018-03-03] MEDS ORDERED: PROCHLORPERAZINE INJ 5 MG in SYRINGE 4 ML IV PRN (20:00)
[2018-03-03] MEDS ORDERED: MoRPHine SULFATE 2 MG/ML CARP IV PRN (20:00)
[2018-03-03] MEDS ORDERED: MoRPHine SULFATE 2 MG/ML CARP ONE (20:01)
[2018-03-03 20:33] LABS: ALBUMIN 2.8 gm/dl (3.4-5.0); TOTAL PROTEIN 6.2 gm/dl (6.4-8.2)
[2018-03-04] VITALS (16 sets, daily range): BP systolic 78–112; BP diastolic 34–64; PULSE 86–106; TEMP 36.2–37.1; O2SAT 93–100
[2018-03-04] MEDS: HYDROmorphone INJ 0.5 MG/0.5 ML SYR IV PRN ×2 (01:22→06:12)
[2018-03-04] MEDS ORDERED: ALBUMIN HUMAN 25% 12.5 GM/50 ML VIAL IV ONE (01:45)
[2018-03-04 02:19] LABS: HEMATOCRIT 26.3 % (42-52); HEMOGLOBIN 8.7 g/dL (14.0-18.0); MEAN CELL VOLUME 93.3 fL (80-100); MEAN CORPUSCULAR HEMOGLOBIN 30.9 pg (25-34); MEAN CORPUSCULAR HGB CONC 33.1 g/dl (32-36); MEAN PLATELET VOLUME 9.5 fL (7.4-10.4); PLATELET COUNT 238 K/uL (130-400); RED CELL DISTRIBUTION WIDTH SD 52.4 fL (36.4-46.3); WHITE BLOOD COUNT 3.94 K/uL (4.8-10.8)
[2018-03-04 02:31] LABS: INR 1.2 (0.9-1.1); PTT PATIENT 27.3 SECONDS (21.0-31.0)
[2018-03-04 02:42] LABS: ALBUMIN 2.4 gm/dl (3.4-5.0); CALCIUM 7.8 mg/dl (8.5-10.1); CREATININE 2.09 mg/dl (0.60-1.40); TOTAL PROTEIN 5.5 gm/dl (6.4-8.2)
[2018-03-04] MEDS ORDERED: MAGNESIUM SULFATE 1GM / D5W 100 ML IV STA (02:44)
[2018-03-04 02:49] LABS: BASO % 0.3 %; BASO ABS # 0.01 K/uL (0-0.2); IG# 0.01 K/uL (0.00-0.02); LYMPH % 6.1 %; LYMPH ABS # 0.24 K/uL (1.2-3.4); MONO % 3.6 %; MONO ABS # 0.14 K/uL (0.11-0.59); NEUT % 89.7 %; NEUT ABS # 3.54 K/uL (1.4-6.5)
--- NOTE | 2018-03-04 03:17 | Progress Note ---
Internal Med Progress Note Date of Service: Mar 04, 2018. Provider Documentation: Made aware by RN of worsening abdominal discomfort overnight. CT abdomen pelvis initial read increased ascites Pro calcitonin noted to be elevated AP Possible SBP Possible sepsis CS IV Ceftriaxone (IV Claforan unavailable) IV albumin Diagnostic and therapeutic paracentesis in a.m. if patient/family do do not elect comfort measures pending discussion. Will relay to AM provider. Vital Signs: Date Time Temp Pulse Resp B/P (MAP) Pulse Ox O2 Delivery O2 Flow Rate FiO2 03/04/18 10:50 36.6 95 20 97/61 (73) 94 Room Air 03/04/18 08:00 Room Air 03/04/18 07:10 36.4 97 20 84/48 (60) 94 Room Air 03/04/18 05:23 94 18 90/54 (66) 96 Room Air 03/04/18 04:31 36.2 93 20 81/53 (62) 95 Room Air 03/04/18 02:17 98 20 90/57 (68) 93 Room Air 03/04/18 01:23 104 18 98/64 (75) 93 Room Air 03/03/18 23:59 Room Air 03/03/18 23:27 36.3 97 20 88/59 (69) 95 Room Air 03/03/18 20:00 93 Room Air 03/03/18 19:55 36.6 70 20 93/60 (71) 93 Room Air 03/03/18 16:45 102 121/65 (83) 94 Room Air 03/03/18 15:40 36.4 95 18 120/76 (91) 95 Room Air Lab Results: Results Past 24 Hours Test 03/03/18 19:06 03/04/18 02:04 03/04/18 02:25 Range/Units White Blood Count 5.05 3.94 4.8-10.8 K/uL Red Blood Count 3.23 2.82 4.7-6.1 M/uL Hemoglobin 9.9 8.7 14.0-18.0 g/dL Hematocrit 30.2 26.3 42-52 % Mean Corpuscular Volume 93.5 93.3 80-100 fL Mean Corpuscular Hemoglobin 30.7 30.9 25-34 pg Mean Corpuscular Hemoglobin Concent 32.8 33.1 32-36 g/dl RDW Standard Deviation 53.7 52.4 36.4-46.3 fL RDW Coefficient of Variation 16.2 16.0 11.5-14.5 % Platelet Count 267 238 130-400 K/uL Mean Platelet Volume 9.3 9.5 7.4-10.4 fL Nucleated RBC Absolute Count (auto) 0.02 0-0 K/uL Nucleated Red Blood Cells % 0.4 % Sodium Level 137 139 136-145 mmol/L Potassium Level 3.9 4.0 3.5-5.1 mmol/L Chloride Level 110 111 98-107 mmol/L Carbon Dioxide Level 21 20 21-32 mmol/L Anion Gap 6.0 8.0 3-11 mmol/L Blood Urea Nitrogen 65 66 7-18 mg/dl Creatinine 1.97 2.09 0.60-1.40 mg/dl Est Creatinine Clear Calc Drug Dose 24.9 23.5 ml/min Estimated GFR () 33.9 31.6 Estimated GFR (Non- 29.3 27.2 BUN/Creatinine Ratio 32.9 31.8 10-20 Random Glucose 116 101 70-99 mg/dl Calcium Level 8.3 7.8 8.5-10.1 mg/dl Total Bilirubin 0.6 0.6 0.2-1 mg/dl Direct Bilirubin 0.3 0-0.2 mg/dl Aspartate Amino Transf (AST/SGOT) 11 7 15-37 U/L Alanine Aminotransferase (ALT/SGPT) 11 9 12-78 U/L Alkaline Phosphatase 144 123 45-117 U/L Total Protein 6.2 5.5 6.4-8.2 gm/dl Albumin 2.8 2.4 3.4-5.0 gm/dl Lipase 183 73-393 U/L Neutrophils (%) (Auto) 89.7 % Lymphocytes (%) (Auto) 6.1 % Monocytes (%) (Auto) 3.6 % Eosinophils (%) (Auto) 0.0 % Basophils (%) (Auto) 0.3 % Neutrophils # (Auto) 3.54 1.4-6.5 K/uL Lymphocytes # (Auto) 0.24 1.2-3.4 K/uL Monocytes # (Auto) 0.14 0.11-0.59 K/uL Eosinophils # (Auto) 0.00 0-0.5 K/uL Basophils # (Auto) 0.01 0-0.2 K/uL Immature Granulocyte % (Auto) 0.3 % Immature Granulocyte # (Auto) 0.01 0.00-0.02 K/uL Red Blood Cell Morphology Unremarkable Prothrombin Time 12.7 9.0-12.0 SECONDS Prothromb Time International Ratio 1.2 0.9-1.1 Activated Partial Thromboplast Time 27.3 21.0-31.0 SECONDS Partial Thromboplastin Ratio 1.1 Lactic Acid Level 1.5 0.4-2.0 mmol/L Magnesium Level 1.8 1.8-2.4 mg/dl Troponin I 0.030 0-0.045 ng/ml Globulin 3.1 2.5-4.0 gm/dl Albumin/Globulin Ratio 0.8 0.9-2 Procalcitonin 3.82 0-0.5 ng/ml Ammonia 25.0 11-32 umol/L Microbiology Results 03/04/18 Blood Culture, Received Pending 03/04/18 Blood Culture, Received Pending
[2018-03-04] MEDS ORDERED: CEFTRIAXONE SOD INJ 1 GM in DEXTROSE 5% ADD-VANTAGE 50ML 50 ML IV SCH (04:00)
[2018-03-04] MEDS: ALBUMIN HUMAN 25% 12.5 GM/50 ML VIAL IV SCH ×4 (06:12→23:47)
[2018-03-04] MEDS: METOPROLOL TARTRATE 25 MG TAB PO SCH ×2 (07:48→21:00)
[2018-03-04] MEDS: ALLOPURINOL 300 MG TAB PO SCH (07:48)
[2018-03-04] MEDS: PANTOprazole INJ 40 MG in SYRINGE 0 ML IV SCH ×2 (07:49→21:00)
--- NOTE | 2018-03-04 08:01 | DIAGNOSTIC IMAGING REPORT ---
ABD/PELVIS NO IV OR ORAL CONT CT DOSE: 1327.25 mGy.cm HISTORY: Pain worsening abd pain TECHNIQUE: Multiaxial CT images of the abdomen and pelvis were performed without contrast. A dose lowering technique was utilized adhering to the principles of ALARA. COMPARISON STUDY: 02/26/2018 FINDINGS: Mildly progressive bilateral pleural effusions. Superimposed bilateral lower lobe atelectatic change. Findings consistent with hepatic cirrhosis. Abdominal and pelvic ascites slightly increased in prominence. Several right renal cysts. No evidence for renal hydronephrosis. Nonspecific infiltrative change of the left perinephric space. This potentially is secondary evidence for bowel nephritis. Pancreas is unremarkable. Potential trace free air anterior superior aspect of the abdomen. Considerable degenerative change lumbar spine. Mild compression deformity previously described is unaltered. Moderate pelvic ascites. Fluid containing bilateral inguinal hernias. No evidence of bowel containment. Bowel pattern is nonobstructive. Moderate body wall anasarca. IMPRESSION: 1. Mildly progressive abdominal and pelvic ascites. 2. The progressive anasarca. 3. Progressive bilateral pleural effusions with bilateral lower lobe atelectasis. 4. Potential small focus free air anterior superior abdomen. Origin is uncertain. 5. Unchanging findings of hepatic cirrhosis The above report was generated using voice recognition software. It may contain grammatical, syntax or spelling errors. Electronically signed by: Marcello Webb M.D. 03/04/2018 7:59 AM Dictated Date/Time: 03/04/2018 7:42 AM
[2018-03-04] MEDS ORDERED: FUROSEMIDE 40 MG TAB PO SCH (09:00)
--- NOTE | 2018-03-04 11:28 | Progress Note ---
Progress Note Date of Service Mar 04, 2018. (Samra Voss CRNP) Progress Note Pt is a 87 y/o male who was seen last week by our GI team for melena, anemia. EGD done on 02/28/18 showed duodenal ulcer w visible vessel treated w bipolar cautery, epi injection, clips placement. GI asked by Dr. Rodriguez (hospitalist) today to re-evaluate pt for possible SBP. 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 Pt been c/o abd pain. He is unable to provide me with any history. Groaning in bed, confused. When asked if he's in pain, he only nodded but unable to tell me location. When abd palpated he's guarding. HR regular, lungs diminished bilaterally. No edema on legs. Noted in chart his last BM was yesterday. He had CT abd/pelvis w/o contrast last night which showed mildly progressive abdominal and pelvic ascites, progressive anasarca, bilateral pleural effusions with bilateral lower lobe atelectasis, potential small focus free air anterior superior abdomen. Origin is uncertain. Unchanging findings of hepatic cirrhosis VS showed no febrile episode. BP low 80s/40s. WBC normal. H/H stable since ulcer treatment. He is continued on Protonix 40mg IV BID. Recommendation: - Given free air on CT scan, concerning for perforation, will make him NPO. Surgery consult placed. - Antibiotics coverage for possible perforation. - U/S paracentesis to r/o SBP ordered by Dr. Rodriguez. Pt would not be able to consent for this procedure given his mental status. Recommend Dr. Rodriguez to discuss w pt's POA (son?) to see if he'll consent for this procedure or if he prefers to make pt comfort care given his advanced age and complex medical comorbidities. ADDENDUM: Paracentesis done, WBC 13K w 97% polynuclear WBCs. Suspect likely related to perforation instead of SBP. No GI procedures that we can offer him at this time, continue antibiotic coverage, keep NPO, Surgery following. (Samra Voss CRNP) Attending attestation I have seen, examined this patient, and agree with the findings and above by our mid-level provider Jessica Stewart. -This is the first day I am seeing this patient, admitted last week, melena, treatment successfully of a duodenal bulb ulcer. Apparently has done quite well without issues until last robyn with development of abdominal pain. No bleeding has been noted and Hb is stable. -We were recalled today for CT scan suggesting free air and ? if has bacterial peritonitis. We suggested General Surgery consultation given presence of free air. -Patient with significant abdominal pain, slightly distended, pain with gentle palpation. Reviewed image with radiology as well as paracentesis results that suggest high concern for secondary peritonitis and not spontaneous. -Given free air, will need surgical decision of management, discussed case in person with [facility] -BID PPI IV -NPO -IV Abx (Thom Negro MD)
[2018-03-04] MEDS ORDERED: PIPERACILL/TAZOBAC CONSULT ACTIVE PRN (11:30)
[2018-03-04] MEDS ORDERED: PIPERACILL/TAZOBAC IV 3.375 GM in DEXTROSE 5% 100ML 100 ML IV SCH (12:00)
--- NOTE | 2018-03-04 12:58 | Progress Note ---
Medicine Progress Note Date & Time of Visit: Mar 04, 2018 at 12:21. Subjective Pt was seen and examined Lying in bed moaning with pain Pt said continue to have a lot of pain He slept for the whole morning until noon after receiving the Dilaudid around 6AM this morning he cannot point to me where he has the pain I spoke to both sons over the phone (Salty and Robe) today and provided update The sons were made aware that the pain med makes him very drowsy and sleeping Also I told them that I will hold the narcotic if pt is lethargy As of now both sons want pt to remain full code Salty or Robe will give consent for the paracentesis when radiologist call for the procedure Objective Last 8 Hrs Date Time Temp Pulse Resp B/P (MAP) Pulse Ox O2 Delivery O2 Flow Rate FiO2 03/04/18 10:50 36.6 95 20 97/61 (73) 94 Room Air 03/04/18 08:00 Room Air 03/04/18 07:10 36.4 97 20 84/48 (60) 94 Room Air 03/04/18 05:23 94 18 90/54 (66) 96 Room Air 03/04/18 04:31 36.2 93 20 81/53 (62) 95 Room Air Physical Exam: General- severe pain Head- atraumatic Eyes- PERRL, EOMI ENT- oropharynx clear Neck- supple, no JVD Lungs- clear to auscultation Heart- regular rhythm Abdomen- +tenderness, hypoactive bowel sound, abdominal distention and Extremities- no calf tenderness Neuro- alert, PERRL Skin- warm & dry Laboratory Results: Last 24 Hours Test 03/03/18 19:06 03/04/18 02:04 03/04/18 02:25 White Blood Count 5.05 K/uL 3.94 K/uL Red Blood Count 3.23 M/uL 2.82 M/uL Hemoglobin 9.9 g/dL 8.7 g/dL Hematocrit 30.2 % 26.3 % Mean Corpuscular Volume 93.5 fL 93.3 fL Mean Corpuscular Hemoglobin 30.7 pg 30.9 pg Mean Corpuscular Hemoglobin Concent 32.8 g/dl 33.1 g/dl RDW Standard Deviation 53.7 fL 52.4 fL RDW Coefficient of Variation 16.2 % 16.0 % Platelet Count 267 K/uL 238 K/uL Mean Platelet Volume 9.3 fL 9.5 fL Nucleated RBC Absolute Count (auto) 0.02 K/uL Nucleated Red Blood Cells % 0.4 % Sodium Level 137 mmol/L 139 mmol/L Potassium Level 3.9 mmol/L 4.0 mmol/L Chloride Level 110 mmol/L 111 mmol/L Carbon Dioxide Level 21 mmol/L 20 mmol/L Anion Gap 6.0 mmol/L 8.0 mmol/L Blood Urea Nitrogen 65 mg/dl 66 mg/dl Creatinine 1.97 mg/dl 2.09 mg/dl Est Creatinine Clear Calc Drug Dose 24.9 ml/min 23.5 ml/min Estimated GFR () 33.9 31.6 Estimated GFR (Non- 29.3 27.2 BUN/Creatinine Ratio 32.9 31.8 Random Glucose 116 mg/dl 101 mg/dl Calcium Level 8.3 mg/dl 7.8 mg/dl Total Bilirubin 0.6 mg/dl 0.6 mg/dl Direct Bilirubin 0.3 mg/dl Aspartate Amino Transf (AST/SGOT) 11 U/L 7 U/L Alanine Aminotransferase (ALT/SGPT) 11 U/L 9 U/L Alkaline Phosphatase 144 U/L 123 U/L Total Protein 6.2 gm/dl 5.5 gm/dl Albumin 2.8 gm/dl 2.4 gm/dl Lipase 183 U/L Neutrophils (%) (Auto) 89.7 % Lymphocytes (%) (Auto) 6.1 % Monocytes (%) (Auto) 3.6 % Eosinophils (%) (Auto) 0.0 % Basophils (%) (Auto) 0.3 % Neutrophils # (Auto) 3.54 K/uL Lymphocytes # (Auto) 0.24 K/uL Monocytes # (Auto) 0.14 K/uL Eosinophils # (Auto) 0.00 K/uL Basophils # (Auto) 0.01 K/uL Immature Granulocyte % (Auto) 0.3 % Immature Granulocyte # (Auto) 0.01 K/uL Red Blood Cell Morphology Unremarkable Prothrombin Time 12.7 SECONDS Prothromb Time International Ratio 1.2 Activated Partial Thromboplast Time 27.3 SECONDS Partial Thromboplastin Ratio 1.1 Lactic Acid Level 1.5 mmol/L Magnesium Level 1.8 mg/dl Troponin I 0.030 ng/ml Globulin 3.1 gm/dl Albumin/Globulin Ratio 0.8 Procalcitonin 3.82 ng/ml Ammonia 25.0 umol/L Date/Time Source Procedure Growth Status 03/04/18 02:04 Blood Blood Culture Pending Received 03/04/18 02:04 Blood Blood Culture Pending Received Assessment & Plan GI BLEED ACUTE ON CHRONIC ANEMIA Mostly due to upper GI bleed hbg on admission 5.8 S/P EGD done today showed One oozing duodenal ulcer with a visible vessel. Treated with epi, cautery and Clips were placed by Gastro team Received 4 units PRBC so far Hbg this morning 8.1, then repeat hgb this afternoon was 9.2 Case discussed with Gastro Continue IV protonix drip for 72 hr, then change to BID On Full liquid diet Monitor H/H Transfuse if hemoglobin less than 7. 8/7 S/P EGD done on 02/28 Hgb today 8.7 Continue protonix IV BID Monitor H/H and transfuse if hgb less than 7 Will keep NPO Update provided to both sons ABDOMINAL PAIN Abd xray showed no bowel obstruction CT/Abd pelvis showed mildly progressive abdominal and pelvic ascites. Potential small focus free air anterior superior abdomen. Case discussed with Gastro team recommended surgical consult for possible perforation Continue IV pain med Abx changed from Rocephin to IV Zosyn Keep NPO BILATERAL PLEURAL EFFUSIONS IV lasix given Will change oral lasix to IV Saturated well on RA Monitor BP LIVER CIRRHOSIS CT abd/pelvis showed mildly progressive abdominal and pelvic ascites. Procalcitonin elevated Need to r/o SBP Will get u/s guided paracentesis by radiology Will check ascites fluid for (gram stain/cx, glucose, LDH, and protein) Was starting on Rocephin IV, will change to Zosyn IV Continue albumin IV Will continue monitor closely ELEVATED TROPONIN Likely demand ischemia secondary to profound anemia No reports of chest pain No ischemic changes on EKG Troponin trends down CHRONIC ATRIAL FIBRILLATION Rate control on metoprolol Not on anticoagulant due to fall risks RIGHT-SIDED HEART FAILURE SEVERE AORTIC STENOSIS CXR showed developing congestive heart failure. Denies any SOB Lasix resume Since pt made NPO, will switch lasix to IV Will be caution due to low BP DYSPHAGIA As per nurse pt was coughing when giving his meds Family reports coughing with medications and food Speech on board No sign of aspiration as per speech CKD STAGE IV Baseline creat runs in the low to mid twos Creat noted to be 2.09 today Monitor BMP DVT PROPHYLAXIS SCDs due to GI bleeding CODE STATUS FULL CODE As per my discussion to both sons today DISPOSITION Continue monitor in tele Continued [facility] stay due to: multiple IV medications needed Discharge planning: uncertain Current Inpatient Medications: Current Inpatient Medications Medications (Trade) Dose Ordered Sig/Jewel Route Start Time Stop Time Status Last Admin Dose Admin Acetaminophen (Tylenol Tab) 650 mg Q4H PRN PO 02/27/18 15:45 03/29/18 15:44 03/03/18 16:12 650 MG Ondansetron HCl (Zofran Inj) 4 mg Q6H PRN IV 02/27/18 15:45 03/29/18 15:44 Allopurinol (Zyloprim Tab) 300 mg DAILY PO 02/28/18 09:00 03/30/18 08:59 03/03/18 08:48 300 MG Tramadol HCl (Ultram Tab) 50 mg Q6 PRN PO 03/03/18 18:30 04/02/18 18:29 Hydromorphone HCl (Dilaudid Inj) 0.25 mg Q3H PRN IV 03/03/18 20:00 03/17/18 19:59 03/04/18 06:12 0.25 MG Prochlorperazine Edisylate 5 mg/ Syringe 5 ml @ 5 mls/min Q6H PRN IV 03/03/18 20:00 04/02/18 19:59 Metoprolol Tartrate (Lopressor Tab) 12.5 mg BID PO 03/04/18 09:00 03/29/18 20:59 Pantoprazole Sodium 40 mg/ Syringe 10 ml @ 5 mls/min BID IV 03/04/18 09:00 04/03/18 08:59 03/04/18 07:49 5 MLS/MIN Albumin Human (Albumin 25%) 12.5 gm Q6H IV 03/04/18 06:00 03/07/18 05:59 03/04/18 11:50 12.5 GM Piperacillin Sod/ Tazobactam Sod 3.375 gm/Dextrose 115 ml @ 200 mls/hr Q6 IV 03/04/18 12:00 03/14/18 11:59 UNV Miscellaneous Information (Consult) 1 ea UD PRN N/A 03/04/18 11:30 04/03/18 11:29
[2018-03-04] MEDS ORDERED: PIPERACILL/TAZOBAC IV 3.375 GM in D5W 100 ML IV ONE (13:00)
--- NOTE | 2018-03-04 14:09 | DIAGNOSTIC IMAGING REPORT ---
PARACENTESIS ABDOMEN W/IMAGING CLINICAL HISTORY: 87 years-old Male presenting with Ascites. COMPARISON: CT from earlier today. PROCEDURE: The procedure and its risks, benefits and alternatives were discussed with the patient, and written informed consent was obtained. A timeout was performed to confirm patient identity. Limited ultrasound of the abdomen was performed to determine a safe needle entry site. The right lower quadrant was prepped and draped in the usual aseptic fashion. 1% Lidocaine was used for local anesthesia. A paracentesis needle-sheath was inserted into the peritoneal space using ultrasound guidance. The needle was removed and the sheath was connected to tubing and a vacuum suction device. A total of 2.7 L of clear brown ascites was aspirated. The sheath was removed, and a dressing applied. The patient tolerated the procedure well. No immediate complications. IMPRESSION: Ultrasound-guided diagnostic and therapeutic paracentesis with aspiration of 2.7 L of ascites. Electronically signed by: Asad Beltre M.D. 03/04/2018 2:08 PM Dictated Date/Time: 03/04/2018 2:05 PM
[2018-03-04] MEDS ORDERED: MoRPHine SULFATE 4 MG/ML 1 ML CARP\\VIAL IV PRN (14:30)
--- NOTE | 2018-03-04 14:59 | Medical Consult ---
Consultation Date of Consultation: Mar 04, 2018. Attending Physician: Caroline Rodriguez M.D. History of Present Illness 87 y/o male admitted from [facility] 5 days ago for failure to thrive. He had black diarrhea and hgb 5.8. EGD 03/01 showed duodenal ulcer & hemorrhage which was injected with epinephrine, coagulated with bipolar probe, and clipped. Last night he began complaining of increased abdominal pain. CT shows small focus of free air, we were asked to evaluate him for possible perforation. He is complaining of abdominal pain and alert although speech is mumbled at times. I spoke with his son Robe who has not seen him today but believes his speech has been changed since he has not been wearing his hearing aides. He has has also been medicated with narcotics. Has been transfused 4 units, the last on 03/01. Past Medical/Surgical History Medical Problems: (1) Chronic anemia (2) Chronic atrial fibrillation (3) CKD (chronic kidney disease), stage IV (4) Dyslipidemia (5) Pulmonary hypertension (6) Right-sided heart failure (7) Severe aortic stenosis (8) Venous stasis Surgical Problems: (1) H/O arthroscopy of shoulder (2) H/O inguinal hernia repair (3) History of cataract surgery Family History Lung disease Social History Smoking Status: Former Smoker Alcohol Use: none Drug Use: none Marital Status: Housing Status: lives with significant other Occupation Status: retired Allergies Coded Allergies: No Known Allergies (Unverified , 02/27/18) Current Inpatient Medications Current Inpatient Medications Medications (Trade) Dose Ordered Sig/Jewel Route Start Time Stop Time Status Last Admin Dose Admin Acetaminophen (Tylenol Tab) 650 mg Q4H PRN PO 02/27/18 15:45 03/29/18 15:44 03/03/18 16:12 650 MG Ondansetron HCl (Zofran Inj) 4 mg Q6H PRN IV 02/27/18 15:45 03/29/18 15:44 Allopurinol (Zyloprim Tab) 300 mg DAILY PO 02/28/18 09:00 03/30/18 08:59 03/03/18 08:48 300 MG Tramadol HCl (Ultram Tab) 50 mg Q6 PRN PO 03/03/18 18:30 04/02/18 18:29 Hydromorphone HCl (Dilaudid Inj) 0.25 mg Q3H PRN IV 03/03/18 20:00 03/17/18 19:59 03/04/18 06:12 0.25 MG Prochlorperazine Edisylate 5 mg/ Syringe 5 ml @ 5 mls/min Q6H PRN IV 03/03/18 20:00 04/02/18 19:59 Metoprolol Tartrate (Lopressor Tab) 12.5 mg BID PO 03/04/18 09:00 03/29/18 20:59 Pantoprazole Sodium 40 mg/ Syringe 10 ml @ 5 mls/min BID IV 03/04/18 09:00 04/03/18 08:59 03/04/18 07:49 5 MLS/MIN Albumin Human (Albumin 25%) 12.5 gm Q6H IV 03/04/18 06:00 03/07/18 05:59 03/04/18 11:50 12.5 GM Miscellaneous Information (Consult) 1 ea UD PRN N/A 03/04/18 11:30 04/03/18 11:29 Piperacillin Sod/ Tazobactam Sod 3.375 gm/Dextrose 115 ml @ 28.75 mls/ hr Q8H IV 03/04/18 18:00 03/14/18 17:59 Morphine Sulfate (MoRPHine SULFATE INJ) 3 mg Q3HWA PRN IV 03/04/18 14:30 03/18/18 14:29 Review of Systems Abdomen: + pain, No nausea, No vomiting, No diarrhea Physical Exam Date Time Temp Pulse Resp B/P (MAP) Pulse Ox O2 Delivery O2 Flow Rate FiO2 03/04/18 13:49 36.8 96 20 101/55 (70) 94 Room Air 03/04/18 10:50 36.6 95 20 97/61 (73) 94 Room Air 03/04/18 08:00 Room Air 03/04/18 07:10 36.4 97 20 84/48 (60) 94 Room Air 03/04/18 05:23 94 18 90/54 (66) 96 Room Air 03/04/18 04:31 36.2 93 20 81/53 (62) 95 Room Air 03/04/18 02:17 98 20 90/57 (68) 93 Room Air 03/04/18 01:23 104 18 98/64 (75) 93 Room Air 03/03/18 23:59 Room Air 03/03/18 23:27 36.3 97 20 88/59 (69) 95 Room Air 03/03/18 20:00 93 Room Air 03/03/18 19:55 36.6 70 20 93/60 (71) 93 Room Air 03/03/18 16:45 102 121/65 (83) 94 Room Air 03/03/18 15:40 36.4 95 18 120/76 (91) 95 Room Air General Appearance: + mild distress Respiratory/Chest: no respiratory distress Cardiovascular: + tachycardia Abdomen/GI: soft, + tenderness (generalized), + guarding, + pertinent finding ( fluid filled inguinal hernias) Laboratory Results Last 24 Hours Test 03/03/18 19:06 03/04/18 02:04 03/04/18 02:25 03/04/18 13:00 White Blood Count 5.05 K/uL 3.94 K/uL Red Blood Count 3.23 M/uL 2.82 M/uL Hemoglobin 9.9 g/dL 8.7 g/dL Hematocrit 30.2 % 26.3 % Mean Corpuscular Volume 93.5 fL 93.3 fL Mean Corpuscular Hemoglobin 30.7 pg 30.9 pg Mean Corpuscular Hemoglobin Concent 32.8 g/dl 33.1 g/dl RDW Standard Deviation 53.7 fL 52.4 fL RDW Coefficient of Variation 16.2 % 16.0 % Platelet Count 267 K/uL 238 K/uL Mean Platelet Volume 9.3 fL 9.5 fL Nucleated RBC Absolute Count (auto) 0.02 K/uL Nucleated Red Blood Cells % 0.4 % Sodium Level 137 mmol/L 139 mmol/L Potassium Level 3.9 mmol/L 4.0 mmol/L Chloride Level 110 mmol/L 111 mmol/L Carbon Dioxide Level 21 mmol/L 20 mmol/L Anion Gap 6.0 mmol/L 8.0 mmol/L Blood Urea Nitrogen 65 mg/dl 66 mg/dl Creatinine 1.97 mg/dl 2.09 mg/dl Est Creatinine Clear Calc Drug Dose 24.9 ml/min 23.5 ml/min Estimated GFR () 33.9 31.6 Estimated GFR (Non- 29.3 27.2 BUN/Creatinine Ratio 32.9 31.8 Random Glucose 116 mg/dl 101 mg/dl Calcium Level 8.3 mg/dl 7.8 mg/dl Total Bilirubin 0.6 mg/dl 0.6 mg/dl Direct Bilirubin 0.3 mg/dl Aspartate Amino Transf (AST/SGOT) 11 U/L 7 U/L Alanine Aminotransferase (ALT/SGPT) 11 U/L 9 U/L Alkaline Phosphatase 144 U/L 123 U/L Total Protein 6.2 gm/dl 5.5 gm/dl Albumin 2.8 gm/dl 2.4 gm/dl Lipase 183 U/L Neutrophils (%) (Auto) 89.7 % Lymphocytes (%) (Auto) 6.1 % Monocytes (%) (Auto) 3.6 % Eosinophils (%) (Auto) 0.0 % Basophils (%) (Auto) 0.3 % Neutrophils # (Auto) 3.54 K/uL Lymphocytes # (Auto) 0.24 K/uL Monocytes # (Auto) 0.14 K/uL Eosinophils # (Auto) 0.00 K/uL Basophils # (Auto) 0.01 K/uL Immature Granulocyte % (Auto) 0.3 % Immature Granulocyte # (Auto) 0.01 K/uL Red Blood Cell Morphology Unremarkable Prothrombin Time 12.7 SECONDS Prothromb Time International Ratio 1.2 Activated Partial Thromboplast Time 27.3 SECONDS Partial Thromboplastin Ratio 1.1 Lactic Acid Level 1.5 mmol/L Magnesium Level 1.8 mg/dl Troponin I 0.030 ng/ml Globulin 3.1 gm/dl Albumin/Globulin Ratio 0.8 Procalcitonin 3.82 ng/ml Ammonia 25.0 umol/L ABD/PELVIS NO IV OR ORAL CONT CT DOSE: 1327.25 mGy.cm HISTORY: Pain worsening abd pain TECHNIQUE: Multiaxial CT images of the abdomen and pelvis were performed without contrast. A dose lowering technique was utilized adhering to the principles of ALARA. COMPARISON STUDY: 02/26/2018 FINDINGS: Mildly progressive bilateral pleural effusions. Superimposed bilateral lower lobe atelectatic change. Findings consistent with hepatic cirrhosis. Abdominal and pelvic ascites slightly increased in prominence. Several right renal cysts. No evidence for renal hydronephrosis. Nonspecific infiltrative change of the left perinephric space. This potentially is secondary evidence for bowel nephritis. Pancreas is unremarkable. Potential trace free air anterior superior aspect of the abdomen. Considerable degenerative change lumbar spine. Mild compression deformity previously described is unaltered. Moderate pelvic ascites. Fluid containing bilateral inguinal hernias. No evidence of bowel containment. Bowel pattern is nonobstructive. Moderate body wall anasarca. IMPRESSION: 1. Mildly progressive abdominal and pelvic ascites. 2. The progressive anasarca. 3. Progressive bilateral pleural effusions with bilateral lower lobe atelectasis. 4. Potential small focus free air anterior superior abdomen. Origin is uncertain. 5. Unchanging findings of hepatic cirrhosis The above report was generated using voice recognition software. It may contain grammatical, syntax or spelling errors. Electronically signed by: Marcello Webb M.D. 03/04/2018 7:59 AM Assessment & Plan UGI bleed, ? perforation recently had paracentesis, 2.7 L brown/dark naila fluid removed H&H stable reviewed CT with radiology, small focus of air anteriorly, no inflammatory changes near duodenum, increasing ascites and bilat pleural effusions does not require urgent exploration at this time, will continue to monitor closely, continue IV Zosyn discussed these findings with his son Robe and would expect difficult post- operative course given multiple conditions listed below if necessary, they would agree to surgery Cirrhosis, ascites Bilateral pleural effusions Chronic atrial fibrillation CKD (chronic kidney disease), stage IV Right-sided heart failure Severe aortic stenosis
[2018-03-04] MEDS ORDERED: FENTANYL CITRATE INJ 50 MCG/1 ML 2 ML VIAL ONE (18:01)
[2018-03-04] MEDS ORDERED: NOREPINEPHRINE BITARTRATE 1 MG/ML 4 ML VIAL IV ONE (18:10)
[2018-03-04] MEDS ORDERED: NURSING VERBAL MED ORDER ONE ×2 (18:30)
[2018-03-04] MEDS ORDERED: SODIUM CHLORIDE 0.9% IV SCH (18:45)
[2018-03-04] MEDS ORDERED: NOREPINEPHRINE BIT INJ 8 MG in DEXTROSE 5% 500ML 500 ML IV PRN (18:45)
[2018-03-04] MEDS ORDERED: VASOPRESSIN IV SCH (18:45)
[2018-03-04] MEDS: PIPERACILL/TAZOBAC IV 3.375 GM in D5W 100ML IV SCH (18:47)
[2018-03-04] MEDS ORDERED: LIDOCAINE HCL 2% 2 ML VIAL (20MG/ML) ONE (18:54)
[2018-03-04] MEDS ORDERED: PHENYLEPHRINE HCL INJ 10 MG/ML VIAL ONE (18:54)
[2018-03-04] MEDS ORDERED: SUCCINYLCHOLINE 100MG/5ML SYR IV ONE (18:54)
[2018-03-04] MEDS ORDERED: CISATRACURIUM BESYLATE IV SOLN 2 MG/ML 10 ML VIAL ONE (18:54)
[2018-03-04] MEDS ORDERED: PROPOFOL IV EMULSION 10 MG/ML 20 ML VIAL ONE (18:54)
[2018-03-04] MEDS ORDERED: ETOMIDATE 2 MG/ML 20 ML VIAL IV ONE (18:54)
[2018-03-04] MEDS ORDERED: SODIUM CHLORIDE 0.9% INJ 10 ML VIAL ONE (19:08)
[2018-03-04] MEDS ORDERED: BUPIVACAINE/EPINEPHRINE 0.5% MPF 1:200,000 30 ML VIAL ONE (19:16)
[2018-03-04] MEDS ORDERED: ONDANSETRON INJ 2 MG/ML 2 ML VIAL IV PRN (19:30)
[2018-03-04] MEDS ORDERED: PHENYLEPHRINE 100MCG/ML 5ML SYR IV PRN (19:30)
[2018-03-04] MEDS ORDERED: ATROPINE SULFATE 0.1 MG/ML 5ML SYR IV PRN (19:30)
[2018-03-04] MEDS ORDERED: HYDROmorphone INJ 2 MG/ML SYR/VIAL IV PRN (19:30)
[2018-03-04] MEDS ORDERED: GLYCOPYRROLATE INJ 0.2 MG/ML VIAL ONE (20:21)
[2018-03-04] MEDS ORDERED: NEOSTIGMINE METHYLSULFATE 5 MG/5 ML SYR ONE (20:21)
--- NOTE | 2018-03-04 20:29 | [facility] Post Operative Brief Note ---
Immediate Operative Summary Operative Date Mar 04, 2018. Pre-Operative Diagnosis Perforated Viscus Post-Operative Diagnosis Perforated Duodenal Ulcer Procedure(s) Performed Diagnostic Laparoscopy; abdominal wash out; oversew duodenal ulcer with bob patch Surgeon Dr. Denise Arnold Can Vacuum Tester Surgeon(s) Keerthi Cruz PA-C Estimated Blood Loss 5mL Findings Consistent with Post-Op Diagnosis Specimens none per surgeon Drains BRIAN into RUQ Anesthesia Type General Complication(s) none
--- NOTE | 2018-03-04 20:35 | [facility] Operative Report ---
Operative Report Operative Date Mar 04, 2018. Pre-Operative Diagnosis Perforated Viscus Post-Operative Diagnosis Perforated Duodenal Ulcer Procedure(s) Performed Diagnostic Laparoscopy; abdominal wash out; oversew duodenal ulcer with rambo patch Surgeon Dr. Denise Arnold Advisor Consultant Surgeon(s) Keerthi Cruz PA-C Estimated Blood Loss 5mL Specimens none per surgeon Drains None BRIAN into RUQ Anesthesia Type General Complication(s) none Disposition yes Description of Procedure After informed consent was obtained the patient was taken to the operating room and placed in supine position. After successful intubation a Watson catheter was placed. The abdomen was then sterilely prepped and draped in usual fashion. I began with a supraumbilical incision with 11 blade scalpel and carried this down through the soft tissue using electrocautery. The anterior fascia was opened using electrocautery and 2 #0 Vicryl stay sutures were placed. Peritoneum was elevated and incised with Metzenbaum scissors. A finger sweep was performed to take down any adhesions. A 12 mm Brasher trocar was placed and the abdomen was insufflated to 18 mmHg. Laparoscope was inserted and the abdomen was examined in 360. There was a lot of bile-stained fluid in the upper abdomen. We placed a 12 mm left upper quadrant port ,a right upper quadrant 5 mm port and a right mid abdominal 12 mm port. I began by suctioning out the fluid in the upper abdomen which again was consistent with bile and gastric acid. After we did this we placed the patient in a reverse Trendelenburg position. The appearance of the liver was not consistent with cirrhosis. I was able to identify the perforation which fortunately was on the anterior surface of the bulb of the duodenum. I looked around the remainder of the abdomen and other than some known inguinal hernias no other abnormalities were identified. I was able to oversew the perforation with 3-0 Vicryl followed by 2-0 Tycron in a Lembert fashion. Once I had the perforation completely closed I then covered the entire area with Tisseel glue. Following this I brought some omentum up and tacked it to the stomach using 2-0 Tycron as well as a kind of modified Rambo patch. There was no leakage at the end of the repair. I performed a thorough washout of the upper and lower abdomen until all the bile tinge was gone. I placed a 10 flat Byron-Fischer drain into the right upper quadrant and brought out through 1 of the trocar sites and secured it using 2-0 nylon. A final look around the abdomen was performed. There was adequate hemostasis. All the trochars were removed and the abdomen was desufflated. The camera site as well as a 12 mm sites fascia were closed using 0 Vicryl in interrupted [id number] fashion. I irrigated and closed the skin using 4-0 Monocryl. Marcaine was injected around them for postoperative analgesia and skin glue used as dressing. The patient was awakened. The plan was to extubate him before transferring to the intensive care unit in critical condition. My physician district administrative assistant was present through the entire case. He helped prep the patient. He helped with retraction and camera management throughout the case as well as wound closure. I attest to the content of the Intraoperative Record and any orders documented therein. Any exceptions are noted below.
[2018-03-04] MEDS ORDERED: HYDROmorphone INJ 0.5 MG/0.5 ML SYR ONE (21:08)
--- NOTE | 2018-03-04 21:22 | Critical Care Progress Note ---
Critical Care Progress Note Date of Service Mar 04, 2018. ICU Day ICU Day Number: [address] Arriola Subjective Patient is an 87-year-old male who was initially admitted to this facility on 02/27/2018 with an upper GI bleed. He subsequently underwent upper endoscopy where a bleeding duodenal ulcer was injected, cauterized, and clipped. Throughout his course, he did require 4 units of PRBCs to help maintain hemoglobin above 7. Early this morning, the patient had complaints of increasing abdominal discomfort with concerning signs for peritonitis. He underwent abdominal paracentesis today and subsequently underwent diagnostic laparoscopy with abdominal washout secondary to perforated viscus. He was transferred to the ICU for continued monitoring and treatment. Upon arrival in the ICU, the patient is awake, however he is unable to communicate. According to records, the patient apparently is a poor historian at baseline. Objective VITAL SIGNS - Vital signs and nursing notes were reviewed. GENERAL - 87-year-old cachectic appearing male. HEAD - NC/AT. EYES - PERRL with EOMI bilaterally. Sclera anicteric. EARS - No deformities of external structures noted on gross examination bilaterally. NOSE - Midline and without cyanosis. MOUTH/OROPHARYNX - Without perioral cyanosis. Buccal mucosa pink and moist and without leukoplakia. NECK - Neck with FROM. Supple to palpation. LUNGS - Chest wall symmetric without accessory muscle use, intercostals retractions, or central cyanosis. Normal vesicular breath sounds CTA B/L. No wheezes, rales, or rhonchi appreciated. CARDIAC - RRR with S1/S2. LUCILA noted to the LEFT sternal border. ABDOMEN - Abdominal contour flat without pulsations or visible masses. Trochar sites noted without dehiscence. BS distant all four quadrants. TTP noted. EXTREMITIES - No clubbing or peripheral cyanosis. No pretibial edema present. +3 /5 radial and dorsalis pedis pulses palpated throughout. NEUROLOGIC - Cranial nerves II through XII grossly intact. Assessment & Plan (1) Perforated abdominal viscus (2) S/P laparoscopy (3) Duodenal ulcer (4) GI bleed (5) Chronic atrial fibrillation (6) Severe aortic stenosis (7) Pulmonary hypertension (8) Right-sided heart failure (9) CKD (chronic kidney disease), stage IV (10) Chronic anemia Reason Critically Ill: 87-year-old male status post diagnostic laparoscopy with abdominal washout for perforated abdominal viscus. History of multiple comorbidities requiring close hemodynamic monitoring status post invasive surgical intervention. Neuro - * CAM ICU: POSITIVE * Pain: Dilaudid 0.25mg PRN s/p surgery. Cardiac - * h/o Severe , Chronic A-fib, HTN: * Continue home Rx as tolerated. * Monitor closely for hypotension in the postoperative patient. * With h/o - focus on keeping HR low with good filling pressures. * Consider transfusing patient to keep Hgb >7 - may consider higher if hemodynamics require. Would favor blood products over pressors in this patient with known h/o A fib * EKG for any changes. * Consider repeat trop to assess for return of demand ischemia. * RIGHT heart failure - refrain from over-loading the periphery w/ IVF. * Pressor if needed. Respiratory - * Pulmonary Hypertension: * Contributing to RHF. * Supplemental O2 PRN * Monitor pulse oximetry. GI - * UGIB s/p Upper Endoscopy with Triple Treatment of a bleeding Duodenal Ulcer: * Continue Protonix BID * Monitor for return of bleeding. * Perforated Abdominal Viscous s/p Diagnostic Laparoscopy With Abdominal Washout : * Minimal EBL * Will keep OG in place. * Will monitor for any bleeding. RENAL/LYTES - * CKD IV: * Will monitor for urine output s/p invasive abdominal surgery. * Will provide maintenance fluids with caution of not overloading the RHF patient. * Monitor kidney function closely. - * [place] Catheter in place: * Strict I&Os ENDO - * No h/o DM/Thyroid Dz: * BSGs w/ ISS/gtt per unit protocol. HEME - * Chronic Anemia with Acute Blood Loss Anemia 2/2 GIB: * Will trend H&H. * Transfuse as needed. ID - * Perforated Abdominal Viscous: * Zosyn * AM ProCal * AM Lactic LINES/IV ACCESS - * PIVs x2 * LEFT Rad A-line * Watson Cath DVT PROPHYLAXIS - * Hold on chemoprophylaxis 2/2 recent UGIB * SCDs I have personally spent 50 minutes of critical care time in the direct management of this patient. This is a life/limb threatening event. This includes time spent evaluating patient, direct bedside care, chart review, placing orders, interpretation of diagnostic studies, discussion with consultants, patient, and family members, as well as other required patient management activities. This time is exclusive of all separately billable procedures, and teaching time and separate from and in addition to any other critical care service time. Thank you for this consultation allow us to be part of this patient's care. Please refer to my attending physician's documentation for any further recommendations. The patient was seen, examined independently, agree with assessment and plan of my colleague Anastacio Lorenzana. The patient was admitted to the hospital with peptic ulcer disease, complicated by perforated duodenal ulcers, status post oversaw, postop the patient was kept in ICU for further monitoring due to his comorbidity, the patient does have significant cardiac history as well as aortic stenosis in addition to chronic kidney disease. The patient appears somewhat to be confused today with a slurred speech but he was able to answer questions and follow commands. He is hard of hearing as well. His chief complaint was postop pain which is understandable well controlled, he was complaining also of knee and lower extremity discomfort. Did not have any shortness of breath or chest pain. His vital signs remained stable. His labs also were reviewed which showed hematocrit of 20 and after receiving a unit of blood it went up to 26. His physical exam revealed elderly gentleman, appeared to be chronically ill, not in any apparent distress at the moment, positive JVP, S1-S2 in A. fib, distant breath sounds bilaterally, abdomen is benign, postop, bowel sounds are positive, no edema. Impression: 1. Perforated duodenal ulcer status post oversew. 2. History of severe aortic stenosis, last echo I have in the computer was in 2013, the patient must have had another echo with these findings. 3. Development of right-sided pleural effusion. 4. Anemia secondary to above. 5. Chronic kidney disease. Plan: 1. Agree with blood transfusion. 2. The patient is 8 L positive and I will change his IV fluid to normal saline state of half-normal saline for blood pressure support. 3. Taper norepinephrine to off. 4. Discontinue Lopressor given his low blood pressure. 5. Long Discussion Took Pl. with the family at the bedside including the son who has power of commercial real estate attorney as well as the presence of palliative care. The son has several questions which are old answered about his father prognosis as well as the CODE STATUS. The son discussed the CODE STATUS with his other siblings and decided to change his CODE STATUS to DNR. Which seems reasonable. 6. Appreciate surgical and GI input. 7. Continue to monitor hematocrit. 8. IV fluid. 9. Repeat chest x-ray later in evaluation for right-sided pleural effusion, in case it become increasingly larger, thoracentesis can be done. 10. Discussed with Dr. Perez, appreciate his input, patient will be transferred to telemetry floor. 11. Remains n.p.o. until stated otherwise by GI and surgery. 12. DVT prophylaxis. 13. Continue Protonix IV twice daily. 14. Discussed with the staff on rounds and details. Critical care time spent with the patient was 45 minutes including discussion with the family. Consults & Procedures Consultants: Gastroenterology Procedures: EGD February 28 2018 Data Medications: Current Inpatient Medications Medications (Trade) Dose Ordered Sig/Jewel Route Start Time Stop Time Status Last Admin Dose Admin Acetaminophen (Tylenol Tab) 650 mg Q4H PRN PO 02/27/18 15:45 03/29/18 15:44 03/03/18 16:12 650 MG Ondansetron HCl (Zofran Inj) 4 mg Q6H PRN IV 02/27/18 15:45 03/29/18 15:44 Allopurinol (Zyloprim Tab) 300 mg DAILY PO 02/28/18 09:00 03/30/18 08:59 03/03/18 08:48 300 MG Tramadol HCl (Ultram Tab) 50 mg Q6 PRN PO 03/03/18 18:30 04/02/18 18:29 Hydromorphone HCl (Dilaudid Inj) 0.25 mg Q3H PRN IV 03/03/18 20:00 03/17/18 19:59 03/04/18 06:12 0.25 MG Prochlorperazine Edisylate 5 mg/ Syringe 5 ml @ 5 mls/min Q6H PRN IV 03/03/18 20:00 04/02/18 19:59 Metoprolol Tartrate (Lopressor Tab) 12.5 mg BID PO 03/04/18 09:00 03/29/18 20:59 Pantoprazole Sodium 40 mg/ Syringe 10 ml @ 5 mls/min BID IV 03/04/18 09:00 04/03/18 08:59 03/04/18 07:49 5 MLS/MIN Albumin Human (Albumin 25%) 12.5 gm Q6H IV 03/04/18 06:00 03/07/18 05:59 03/04/18 18:47 12.5 GM Miscellaneous Information (Consult) 1 ea UD PRN N/A 03/04/18 11:30 04/03/18 11:29 Piperacillin Sod/ Tazobactam Sod 3.375 gm/Dextrose 115 ml @ 28.75 mls/ hr Q8H IV 03/04/18 18:00 03/14/18 17:59 03/04/18 18:47 28.75 MLS/HR Morphine Sulfate (MoRPHine SULFATE INJ) 3 mg Q3HWA PRN IV 03/04/18 14:30 03/18/18 14:29 03/04/18 14:35 3 MG Norepinephrine Bitartrate 8 mg/ Dextrose 508 ml @ 0 mls/hr Q0M PRN IV 03/04/18 18:45 04/03/18 18:44 Vasopressin 20 units/Sodium Chloride 101 ml @ 12 mls/hr Q8H25M IV 03/04/18 18:45 04/03/18 18:44 Ondansetron HCl (Zofran Inj) 4 mg ONE PRN IV 03/04/18 19:30 03/05/18 00:30 Atropine Sulfate (Atropine Sulfate 0.1mg/ml Inj) 0.5 mg Q1M PRN IV 03/04/18 19:30 03/05/18 00:30 Hydromorphone HCl (Dilaudid Inj) 0.25 mg Q5M PRN IV 03/04/18 19:30 03/05/18 00:30 Phenylephrine HCl (Guillermo-Synephrine 500MCG/5ML Syr) 100 mcg Q5M PRN IV 03/04/18 19:30 03/05/18 00:30 I & O: 24-Hour Column 03/05/18 08:00 Intake Total 500 ml Output Total 205 ml Balance 295 ml Vital Signs: Date Time Temp Pulse Resp B/P (MAP) Pulse Ox O2 Delivery O2 Flow Rate FiO2 03/04/18 21:15 86 19 100/53 100 Oxymask 3 03/04/18 21:05 92 16 126/63 100 Oxymask 5 03/04/18 20:55 95 25 130/67 100 Oxymask 5 03/04/18 20:46 37.5 102 19 130/72 100 Oxymask 5 03/04/18 16:00 Room Air 03/04/18 15:15 36.5 97 16 92/57 (69) 96 Room Air 03/04/18 13:49 36.8 96 20 101/55 (70) 94 Room Air 03/04/18 10:50 36.6 95 20 97/61 (73) 94 Room Air 03/04/18 08:00 Room Air 03/04/18 07:10 36.4 97 20 84/48 (60) 94 Room Air 03/04/18 05:23 94 18 90/54 (66) 96 Room Air 03/04/18 04:31 36.2 93 20 81/53 (62) 95 Room Air 03/04/18 02:17 98 20 90/57 (68) 93 Room Air 03/04/18 01:23 104 18 98/64 (75) 93 Room Air 03/03/18 23:59 Room Air 03/03/18 23:27 36.3 97 20 88/59 (69) 95 Room Air Laboratory Results: Last 24 Hours Test 03/04/18 02:04 03/04/18 02:25 03/04/18 13:00 White Blood Count 3.94 K/uL Red Blood Count 2.82 M/uL Hemoglobin 8.7 g/dL Hematocrit 26.3 % Mean Corpuscular Volume 93.3 fL Mean Corpuscular Hemoglobin 30.9 pg Mean Corpuscular Hemoglobin Concent 33.1 g/dl Platelet Count 238 K/uL Mean Platelet Volume 9.5 fL Neutrophils (%) (Auto) 89.7 % Lymphocytes (%) (Auto) 6.1 % Monocytes (%) (Auto) 3.6 % Eosinophils (%) (Auto) 0.0 % Basophils (%) (Auto) 0.3 % Neutrophils # (Auto) 3.54 K/uL Lymphocytes # (Auto) 0.24 K/uL Monocytes # (Auto) 0.14 K/uL Eosinophils # (Auto) 0.00 K/uL Basophils # (Auto) 0.01 K/uL RDW Standard Deviation 52.4 fL RDW Coefficient of Variation 16.0 % Immature Granulocyte % (Auto) 0.3 % Immature Granulocyte # (Auto) 0.01 K/uL Red Blood Cell Morphology Unremarkable Prothrombin Time 12.7 SECONDS Prothromb Time International Ratio 1.2 Activated Partial Thromboplast Time 27.3 SECONDS Partial Thromboplastin Ratio 1.1 Sodium Level 139 mmol/L Potassium Level 4.0 mmol/L Chloride Level 111 mmol/L Carbon Dioxide Level 20 mmol/L Anion Gap 8.0 mmol/L Blood Urea Nitrogen 66 mg/dl Creatinine 2.09 mg/dl Est Creatinine Clear Calc Drug Dose 23.5 ml/min Estimated GFR () 31.6 Estimated GFR (Non- 27.2 BUN/Creatinine Ratio 31.8 Random Glucose 101 mg/dl Lactic Acid Level 1.5 mmol/L Calcium Level 7.8 mg/dl Magnesium Level 1.8 mg/dl Total Bilirubin 0.6 mg/dl Aspartate Amino Transf (AST/SGOT) 7 U/L Alanine Aminotransferase (ALT/SGPT) 9 U/L Alkaline Phosphatase 123 U/L Troponin I 0.030 ng/ml Total Protein 5.5 gm/dl Albumin 2.4 gm/dl Globulin 3.1 gm/dl Albumin/Globulin Ratio 0.8 Procalcitonin 3.82 ng/ml Ammonia 25.0 umol/L Peritoneal Fluid Color MESSI Peritoneal Fluid Appearance CLOUDY Peritoneal Fluid WBC 20792 /uL Peritoneal Fluid RBC 48242 /uL Peritoneal Fld Mononuclear WBCs (%) 2.8 % Peritoneal Fld Polynuclear WBCs (%) 97.2 % Peritoneal Fluid Total Protein 3.2 g/dl Peritoneal Fluid Albumin 1.7 g/dl Peritoneal Fluid LDH 188 IU Peritoneal Fluid Glucose 32 mg/dl
[2018-03-04] MEDS ORDERED: ICU PROTOCOL FOR HYPERGLYCEMIA PRN (21:30)
--- NOTE | 2018-03-04 21:58 | Anesthesiology Progress Note ---
Anesthesia Post Op Note Date & Time Mar 04, 2018 at 21:58 Vital Signs Pain Intensity: 0 Vital Signs Past 12 Hours Date Time Temp Pulse Resp B/P (MAP) Pulse Ox O2 Delivery O2 Flow Rate FiO2 03/04/18 21:35 102 18 99/60 (75) 100 Oxymask 3 03/04/18 21:25 37.1 93 17 107/65 100 Oxymask 3 03/04/18 21:15 86 19 100/53 100 Oxymask 3 03/04/18 21:05 92 16 126/63 100 Oxymask 5 03/04/18 20:55 95 25 130/67 100 Oxymask 5 03/04/18 20:46 37.5 102 19 130/72 100 Oxymask 5 03/04/18 16:00 Room Air 03/04/18 15:15 36.5 97 16 92/57 (69) 96 Room Air 03/04/18 13:49 36.8 96 20 101/55 (70) 94 Room Air 03/04/18 10:50 36.6 95 20 97/61 (73) 94 Room Air Notes Mental Status: alert / awake / arousable, participated in evaluation Pt Amnestic to Procedure: Yes Nausea / Vomiting: adequately controlled Pain: adequately controlled Airway Patency, RR, SpO2: stable & adequate BP & HR: stable & adequate Hydration State: stable & adequate Anesthetic Complications: no major complications apparent
[2018-03-04 22:20] LABS: HEMATOCRIT 23.3 % (42-52); HEMOGLOBIN 7.8 g/dL (14.0-18.0); MEAN CORPUSCULAR HEMOGLOBIN 31.5 pg (25-34); MEAN CORPUSCULAR HGB CONC 33.5 g/dl (32-36); MEAN PLATELET VOLUME 10.1 fL (7.4-10.4); PLATELET COUNT 202 K/uL (130-400); RED CELL DISTRIBUTION WIDTH CV 16.5 % (11.5-14.5); RED CELL DISTRIBUTION WIDTH SD 54.6 fL (36.4-46.3); WHITE BLOOD COUNT 5.45 K/uL (4.8-10.8)
[2018-03-04 22:37] LABS: BASO % 0.2 %; BASO ABS # 0.01 K/uL (0-0.2); IG# 0.02 K/uL (0.00-0.02); LYMPH % 3.9 %; LYMPH ABS # 0.21 K/uL (1.2-3.4); MONO % 4.2 %; MONO ABS # 0.23 K/uL (0.11-0.59); NEUT % 91.3 %; NEUT ABS # 4.98 K/uL (1.4-6.5)
[2018-03-04 22:57] LABS: ALBUMIN 2.9 gm/dl (3.4-5.0); CALCIUM 8.5 mg/dl (8.5-10.1); CREATININE 2.53 mg/dl (0.60-1.40); PHOSPHORUS 3.9 mg/dl (2.5-4.9); POTASSIUM 4.3 mmol/L (3.5-5.1); TOTAL PROTEIN 5.9 gm/dl (6.4-8.2)
[2018-03-05] VITALS (47 sets, daily range): BP systolic 79–115; BP diastolic 27–75; PULSE 76–163; TEMP 36.3–37.2; O2SAT 85–100
[2018-03-05] MEDS ORDERED: SODIUM CHLORIDE 0.9% 250ML 250 ML IV SCH
[2018-03-05] MEDS ORDERED: ALBUMIN HUMAN 25% 12.5 GM/50 ML VIAL IV ONE (00:15)
[2018-03-05] MEDS: D5W AND 1/2NSS 1,000 ML IV SCH ×3 (00:15→17:49)
[2018-03-05 02:16] LABS: HEMATOCRIT 20.9 % (42-52); HEMOGLOBIN 6.8 g/dL (14.0-18.0)
[2018-03-05] MEDS: PIPERACILL/TAZOBAC IV 3.375 GM in D5W 100ML IV SCH ×3 (02:23→17:49)
[2018-03-05] MEDS ORDERED: NOREPINEPHRINE BIT INJ 8 MG in DEXTROSE 5% 500ML 500 ML IV PRN (02:44)
--- NOTE | 2018-03-05 02:49 | Critical Care Progress Note ---
Critical Care Progress Note Date of Service Mar 05, 2018. Critical Care Progress Note Patient did recover with IV fluid bolus and albumin 25% 25 g for a moderate amount of time. The patient did show progressively worsening hypotension, at this point, I did elect to draw labs including an H&H as well as blood glass, lactic acid, and troponin. H&H was found to be 6.8 and 20.9, respectively. At this point, I did place order to transfuse 2 units of PRBCs. His IV fluids will be placed on hold at this time. Patient's blood gas demonstrated no acute acidotic state, particularly metabolic acidosis. Additionally, his lactic acid was not elevated. Thankfully, troponin was not elevated as well. At this point , we will transfuse 2 units in hopes of maintaining hemodynamic stability. Shortly after the initiation of blood products, the patient continued to drop his blood pressure into the 70s. At this point, I did elect to place the patient on a Levophed drip to help maintain pressures as well. Will need to be cautions with fluid administration given the patient's history of RIGHT sided heart failure. I have personally spent 45 minutes of critical care time in the direct management of this patient. This is a life/limb threatening event. This includes time spent evaluating patient, direct bedside care, chart review, placing orders, interpretation of diagnostic studies, discussion with consultants, patient, and family members, as well as other required patient management activities. This time is exclusive of all separately billable procedures, and teaching time and separate from and in addition to any other critical care service time.
[2018-03-05 05:37] LABS: CREATININE 2.6 mg/dl (0.60-1.40); PHOSPHORUS 3.7 mg/dl (2.5-4.9); POTASSIUM 4.2 mmol/L (3.5-5.1)
[2018-03-05] MEDS: ALLOPURINOL 300 MG TAB PO SCH (07:26)
[2018-03-05] MEDS: METOPROLOL TARTRATE 25 MG TAB PO SCH (07:26)
[2018-03-05] MEDS: PANTOprazole INJ 40 MG in SYRINGE 0 ML IV SCH ×2 (07:35→20:20)
[2018-03-05] MEDS: ALBUMIN HUMAN 25% 12.5 GM/50 ML VIAL IV SCH ×3 (07:35→18:08)
[2018-03-05] MEDS ORDERED: MoRPHine SULFATE 2 MG/ML CARP IV PRN (08:00)
--- NOTE | 2018-03-05 08:16 | DIAGNOSTIC IMAGING REPORT ---
CHEST ONE VIEW PORTABLE CLINICAL HISTORY: 87 years-old Male presenting with post op. TECHNIQUE: Portable upright AP view of the chest was obtained. COMPARISON: 03/03/2018. FINDINGS: Prominent skin folds project over the bilateral hemithoraces Nasogastric tube descends below the diaphragm terminating in the gastric body. Atherosclerosis of the aortic arch. Moderate enlargement of the cardiac silhouette. Interval increase in degraded density in the right hemithorax with a mid to basilar predominance likely indicating layering pleural effusion. Obscuration of the left hemidiaphragm with possible small left pleural effusion. No pneumothorax. Degenerative changes of the thoracic spine. Degenerative changes of the shoulders. IMPRESSION: 1. Appropriately positioned nasogastric tube. 2. Moderate layering right pleural effusion with extensive right lung atelectasis. 3. Small left pleural effusion with suspected left basilar atelectasis. 4. Cardiomegaly. Electronically signed by: Asad Beltre M.D. 03/05/2018 8:15 AM Dictated Date/Time: 03/05/2018 8:03 AM
[2018-03-05 08:43] LABS: BASO % 0.3 %; BASO ABS # 0.02 K/uL (0-0.2); EOS % 0.1 %; EOS ABS # 0.01 K/uL (0-0.5); HEMATOCRIT 26.6 % (42-52); HEMOGLOBIN 8.9 g/dL (14.0-18.0); IG# 0.06 K/uL (0.00-0.02); LYMPH % 7.6 %; LYMPH ABS # 0.55 K/uL (1.2-3.4); MEAN CELL VOLUME 91.7 fL (80-100); MEAN CORPUSCULAR HEMOGLOBIN 30.7 pg (25-34); MEAN CORPUSCULAR HGB CONC 33.5 g/dl (32-36); MEAN PLATELET VOLUME 10.2 fL (7.4-10.4); MONO % 6.2 %; MONO ABS # 0.45 K/uL (0.11-0.59); NEUT ABS # 6.15 K/uL (1.4-6.5); PLATELET COUNT 192 K/uL (130-400); RED CELL DISTRIBUTION WIDTH CV 16.9 % (11.5-14.5); RED CELL DISTRIBUTION WIDTH SD 53.7 fL (36.4-46.3); WHITE BLOOD COUNT 7.24 K/uL (4.8-10.8)
--- NOTE | 2018-03-05 09:58 | Surgery Progress Note ---
Surgery Progress Note Date of Service Mar 05, 2018. Subjective Post OP Day: 1 pt appears much more comfortable than yesterday. denies abdominal pain currently. Objective Vital Signs: Date Time Temp Pulse Resp B/P (MAP) Pulse Ox O2 Delivery O2 Flow Rate FiO2 03/05/18 09:00 87 20 83/42 (56) 100 Oxymask 2.0 03/05/18 08:30 89 17 91/59 (70) 100 Oxymask 2.0 03/05/18 08:00 36.8 94 19 100/54 (69) 100 Oxymask 2.0 03/05/18 08:00 Oxymask 2.0 03/05/18 07:30 99 19 106/47 (66) 98 Oxymask 2.0 03/05/18 07:15 36.8 98 17 106/47 100 2.0 03/05/18 07:00 91 16 98/61 (73) 99 Oxymask 2.0 03/05/18 06:30 94 17 101/58 (72) 99 03/05/18 06:15 36.8 91 19 100/60 97 2.0 03/05/18 06:15 91 19 100/60 (73) 97 03/05/18 06:00 91 25 93/56 (68) 96 03/05/18 05:45 85 19 99/53 (68) 98 03/05/18 05:34 36.8 83 20 94/31 97 2.0 03/05/18 05:30 90 15 101/60 (74) 98 03/05/18 05:18 90 20 110/36 98 2.0 03/05/18 05:15 163 24 91/55 (67) 85 03/05/18 05:01 88 16 91/55 (67) 03/05/18 04:30 36.7 91 19 91/51 99 2.0 03/05/18 04:30 91 19 91/51 (64) 03/05/18 04:15 88 17 89/52 (64) 100 03/05/18 04:01 92 17 98/30 (52) 99 03/05/18 04:00 92 14 95/29 (51) 03/05/18 03:38 36.4 89 21 106/45 100 2.0 03/05/18 03:15 100 15 96/53 (67) 100 8 03:07 36.5 85 20 100/32 96 2.0 03/05/18 03:02 90 15 102/36 (58) 100 03/05/18 03:00 76 18 85/27 (46) 100 03/05/18 02:45 36.3 90 15 86/28 100 2.0 03/05/18 02:34 36.3 92 16 79/45 91 03/05/18 02:30 86 18 79/45 (56) 100 03/05/18 02:07 89 19 83/42 (56) 100 03/05/18 02:00 115 24 79/43 (55) 100 03/05/18 01:30 92 14 87/50 (62) 100 03/05/18 01:00 90 20 89/55 (66) 99 Oxymask 2.0 03/05/18 00:30 92 20 101/53 (69) 98 Oxymask 2.0 03/05/18 00:00 36.4 91 17 83/49 (60) 100 Oxymask 2.0 03/04/18 23:53 96 19 84/34 (51) 96 Oxymask 2.0 03/04/18 23:48 99 23 78/34 (49) 100 Oxymask 2.0 03/04/18 23:45 Oxymask 2.0 03/04/18 23:30 95 17 83/49 (60) Oxymask 2.0 03/04/18 23:18 86 17 85/58 (67) 100 Oxymask 2.0 03/04/18 23:16 89 19 100/34 (56) 100 Oxymask 2.0 03/04/18 23:00 91 16 92/60 (71) 100 Oxymask 2.0 03/04/18 22:00 93 20 98/63 (68) 100 112/44 03/04/18 22:00 100 Oxymask 2.0 03/04/18 22:00 37.1 93 20 112/44 (66) 100 Oxymask 2.0 03/04/18 21:45 106 19 97/59 (69) 100 112/42 03/04/18 21:35 102 18 99/60 (75) 100 Oxymask 3 03/04/18 21:25 37.1 93 17 107/65 100 Oxymask 3 03/04/18 21:15 86 19 100/53 100 Oxymask 3 03/04/18 21:05 92 16 126/63 100 Oxymask 5 03/04/18 20:55 95 25 130/67 100 Oxymask 5 03/04/18 20:46 37.5 102 19 130/72 100 Oxymask 5 03/04/18 16:00 Room Air 03/04/18 15:15 36.5 97 16 92/57 (69) 96 Room Air 03/04/18 13:49 36.8 96 20 101/55 (70) 94 Room Air 03/04/18 10:50 36.6 95 20 97/61 (73) 94 Room Air Physical Exam: BRIAN drainage (serous fluid/no bile. no ascites. ) General Appearance: no apparent distress Respiratory/Chest: no accessory muscle use Abdomen: non distended, soft Incision(s): clean, dry, intact Laboratory Results: Results Past 24 Hours Test 03/04/18 13:00 03/04/18 21:47 03/04/18 21:52 03/04/18 23:34 Range/Units Peritoneal Fluid Color MESSI Peritoneal Fluid Appearance CLOUDY Peritoneal Fluid WBC 87169 0-300 /uL Peritoneal Fluid RBC 82473 /uL Peritoneal Fld Mononuclear WBCs (%) 2.8 % Peritoneal Fld Polynuclear WBCs (%) 97.2 % Peritoneal Fluid Total Protein 3.2 g/dl Peritoneal Fluid Albumin 1.7 g/dl Peritoneal Fluid LDH 188 IU Peritoneal Fluid Glucose 32 mg/dl White Blood Count 5.45 4.8-10.8 K/uL Red Blood Count 2.48 4.7-6.1 M/uL Hemoglobin 7.8 14.0-18.0 g/dL Hematocrit 23.3 42-52 % Mean Corpuscular Volume 94.0 80-100 fL Mean Corpuscular Hemoglobin 31.5 25-34 pg Mean Corpuscular Hemoglobin Concent 33.5 32-36 g/dl Platelet Count 202 130-400 K/uL Mean Platelet Volume 10.1 7.4-10.4 fL Neutrophils (%) (Auto) 91.3 % Lymphocytes (%) (Auto) 3.9 % Monocytes (%) (Auto) 4.2 % Eosinophils (%) (Auto) 0.0 % Basophils (%) (Auto) 0.2 % Neutrophils # (Auto) 4.98 1.4-6.5 K/uL Lymphocytes # (Auto) 0.21 1.2-3.4 K/uL Monocytes # (Auto) 0.23 0.11-0.59 K/uL Eosinophils # (Auto) 0.00 0-0.5 K/uL Basophils # (Auto) 0.01 0-0.2 K/uL RDW Standard Deviation 54.6 36.4-46.3 fL RDW Coefficient of Variation 16.5 11.5-14.5 % Immature Granulocyte % (Auto) 0.4 % Immature Granulocyte # (Auto) 0.02 0.00-0.02 K/uL Red Blood Cell Morphology Unremarkable Sodium Level 139 136-145 mmol/L Potassium Level 4.3 3.5-5.1 mmol/L Chloride Level 109 98-107 mmol/L Carbon Dioxide Level 20 21-32 mmol/L Anion Gap 9.0 3-11 mmol/L Blood Urea Nitrogen 72 7-18 mg/dl Creatinine 2.53 0.60-1.40 mg/dl Est Creatinine Clear Calc Drug Dose 20.2 ml/min Estimated GFR () 25.1 Estimated GFR (Non- 21.6 BUN/Creatinine Ratio 28.4 10-20 Random Glucose 104 70-99 mg/dl Calcium Level 8.5 8.5-10.1 mg/dl Phosphorus Level 3.9 2.5-4.9 mg/dl Magnesium Level 2.0 1.8-2.4 mg/dl Total Bilirubin 0.7 0.2-1 mg/dl Direct Bilirubin 0.5 0-0.2 mg/dl Aspartate Amino Transf (AST/SGOT) 10 15-37 U/L Alanine Aminotransferase (ALT/SGPT) 9 12-78 U/L Alkaline Phosphatase 94 45-117 U/L Total Protein 5.9 6.4-8.2 gm/dl Albumin 2.9 3.4-5.0 gm/dl Lipase 138 73-393 U/L Bedside Glucose 112 70-99 mg/dl Urine Color YELLOW Urine Appearance TURBID CLEAR Urine pH 5.0 4.5-7.5 Urine Specific [place] 1.017 1.000-1.030 Urine Protein 2+ NEG Urine Glucose (UA) NEG NEG Urine Ketones NEG NEG Urine Occult Blood 2+ NEG Urine Nitrite NEG NEG Urine Bilirubin NEG NEG Urine Urobilinogen NEG NEG Urine Leukocyte Esterase NEG NEG Urine WBC (Auto) 1-5 0-5 /hpf Urine RBC (Auto) 0-4 0-4 /hpf Urine Hyaline Casts (Auto) 10-30 0-5 /lpf Urine Epithelial Cells (Auto) >30 0-5 /lpf Urine Bacteria (Auto) NEG NEG Urine Pathogenic Casts 0-3 GRANULAR CASTS 0 /lpf Urine Yeast (Auto) NONE PRSENT Test 03/04/18 23:46 03/05/18 01:56 03/05/18 02:41 03/05/18 05:10 Range/Units Bedside Glucose 97 70-99 mg/dl Hemoglobin 6.8 14.0-18.0 g/dL Hematocrit 20.9 42-52 % Lactic Acid Level 1.1 0.4-2.0 mmol/L Troponin I 0.033 0-0.045 ng/ml Blood Gas Sample Site L Radial Bedside Blood Gas pH (LAB) 7.37 7.35-7.45 Bedside Blood Gas pCO2 (LAB) 33 35-46 mmHg Bedside Blood Gas pO2 (LAB) 102 80-95 mmHg Bedside Blood Gas HCO3 (LAB) 19 19-24 meq/L Bedside Blood Gas Total CO2 20 24-31 mEq/l Bedside Blood Gas Base Excess (LAB) -6.0 -9-1.8 meq/L Bedside Blood Gas O2 Saturation 98.0 90-95 % [place] Test NA Oxygen Delivery Device VentiMask Bedside FiO2 28 % Sodium Level 138 136-145 mmol/L Potassium Level 4.2 3.5-5.1 mmol/L Chloride Level 111 98-107 mmol/L Carbon Dioxide Level 18 21-32 mmol/L Anion Gap 9.0 3-11 mmol/L Blood Urea Nitrogen 71 7-18 mg/dl Creatinine 2.60 0.60-1.40 mg/dl Est Creatinine Clear Calc Drug Dose 19.6 ml/min Estimated GFR () 24.3 Estimated GFR (Non- 20.9 BUN/Creatinine Ratio 27.4 10-20 Random Glucose 111 70-99 mg/dl Calcium Level 8.0 8.5-10.1 mg/dl Phosphorus Level 3.7 2.5-4.9 mg/dl Magnesium Level 2.1 1.8-2.4 mg/dl Lipase 57 73-393 U/L Test 03/05/18 06:33 03/05/18 08:17 Range/Units Bedside Glucose (other) 107 70-99 mg/dl White Blood Count 7.24 4.8-10.8 K/uL Red Blood Count 2.90 4.7-6.1 M/uL Hemoglobin 8.9 14.0-18.0 g/dL Hematocrit 26.6 42-52 % Mean Corpuscular Volume 91.7 80-100 fL Mean Corpuscular Hemoglobin 30.7 25-34 pg Mean Corpuscular Hemoglobin Concent 33.5 32-36 g/dl Platelet Count 192 130-400 K/uL Mean Platelet Volume 10.2 7.4-10.4 fL Neutrophils (%) (Auto) 85.0 % Lymphocytes (%) (Auto) 7.6 % Monocytes (%) (Auto) 6.2 % Eosinophils (%) (Auto) 0.1 % Basophils (%) (Auto) 0.3 % Neutrophils # (Auto) 6.15 1.4-6.5 K/uL Lymphocytes # (Auto) 0.55 1.2-3.4 K/uL Monocytes # (Auto) 0.45 0.11-0.59 K/uL Eosinophils # (Auto) 0.01 0-0.5 K/uL Basophils # (Auto) 0.02 0-0.2 K/uL RDW Standard Deviation 53.7 36.4-46.3 fL RDW Coefficient of Variation 16.9 11.5-14.5 % Immature Granulocyte % (Auto) 0.8 % Immature Granulocyte # (Auto) 0.06 0.00-0.02 K/uL Red Blood Cell Morphology Unremarkable Microbiology Results 03/04/18 Urine Culture, Received Pending 03/04/18 Gram Stain - Final, Resulted 03/04/18 Bacterial Culture, Resulted Pending Assessment & Plan POD 1 doing as well as we could hope BP and Hg both improved after 2 units PRBC's. suspect he may need more PRBC's. no evidence of bleeding. still on Levo. BP borderline. BRIAN serous--no bile or ascites pt pulled NGT. will just leave it out. Keep NPO. continue antibiotics. I appreciate everyone's help.
--- NOTE | 2018-03-05 10:25 | Palliative Care Progress Note ---
Palliative Care Progress Note Date of Service Mar 05, 2018. Subjective Pt evaluation today including: conversation w/ patient, conversation w/ family , physical exam Patient was evaluated at the bedside. Patient's son, Gustabo, and his , Chichi came to the bedside and myself and Dr. Arriola discussed his current clinical picture. Previous discussions indicated that the family wanted him to remain Full Code until he was 'terminal'; however, discussing terminal vs non-terminal and how Hospice and quality of life is an important focus on this family meeting as well. We discussed that the patient does have multi-organ system failure and discussed how CPR would affect this patient and the likelihood of him returning to his baseline is low. Additionally, we discussed the current . The patient continues to require Norepinephrine 0.05mcg/kg/min and is holding his B/P mid 80's via A-line. Additionally, overnight he received 2UPRBC for a Hgb/Hct 6.8/20.9 --> 8.9/26.6 post transfusion. Upon assessment, the patient did open his eyes and stated he was not having any pain; however, the patient was difficult to understand and I do not believe orientation is reliable. He was unable to state where he was. The patient is a resident of [facility] and while we could await PT/OT input, I believe that his participation would be poor and based on the events overnight, a transfer outside of the hospital may be difficult if we are unable to maintain B/P stability. The patients brother states that he shares POA with his other brother, Salty, and would like to fully discuss with him; however, he is willing to change him to DNR/DNI with no additional escalation in his care should he decompensate. Currently, he appears to be waking up and responding post-operatively, but looking at manager intermediate goals, it appears comfort will be the main goal. I did provide a POLST form to the patients son who will discuss it with his brother. We will continue to provide support and follow this patient throughout his hospitalization. Review of Systems Patient denies pain. Patient unreliable with conversation to obtain a reliable ROS Objective Vital Signs Date Time Temp Pulse Resp B/P (MAP) Pulse Ox O2 Delivery O2 Flow Rate FiO2 03/05/18 09:00 87 20 83/42 (56) 100 Oxymask 2.0 03/05/18 08:30 89 17 91/59 (70) 100 Oxymask 2.0 03/05/18 08:00 36.8 94 19 100/54 (69) 100 Oxymask 2.0 03/05/18 08:00 Oxymask 2.0 03/05/18 07:30 99 19 106/47 (66) 98 Oxymask 2.0 03/05/18 07:15 36.8 98 17 106/47 100 2.0 03/05/18 07:00 91 16 98/61 (73) 99 Oxymask 2.0 03/05/18 06:30 94 17 101/58 (72) 99 03/05/18 06:15 36.8 91 19 100/60 97 2.0 03/05/18 06:15 91 19 100/60 (73) 97 03/05/18 06:00 91 25 93/56 (68) 96 03/05/18 05:45 85 19 99/53 (68) 98 03/05/18 05:34 36.8 83 20 94/31 97 2.0 03/05/18 05:30 90 15 101/60 (74) 98 03/05/18 05:18 90 20 110/36 98 2.0 03/05/18 05:15 163 24 91/55 (67) 85 03/05/18 05:01 88 16 91/55 (67) 03/05/18 04:30 36.7 91 19 91/51 99 2.0 03/05/18 04:30 91 19 91/51 (64) 03/05/18 04:15 88 17 89/52 (64) 100 03/05/18 04:01 92 17 98/30 (52) 99 03/05/18 04:00 92 14 95/29 (51) 03/05/18 03:38 36.4 89 21 106/45 100 2.0 03/05/18 03:15 100 15 96/53 (67) 100 03/05/18 03:07 36.5 85 20 100/32 96 2.0 03/05/18 03:02 90 15 102/36 (58) 100 03/05/18 03:00 76 18 85/27 (46) 100 03/05/18 02:45 36.3 90 15 86/28 100 2.0 03/05/18 02:34 36.3 92 16 79/45 91 818 02:30 86 18 79/45 (56) 100 03/05/18 02:07 89 19 83/42 (56) 100 03/05/18 02:00 115 24 79/43 (55) 100 18 01:30 92 14 87/50 (62) 100 03/05/18 01:00 90 20 89/55 (66) 99 Oxymask 2.0 03/05/18 00:30 92 20 101/53 (69) 98 Oxymask 2.0 03/05/18 00:00 36.4 91 17 83/49 (60) 100 Oxymask 2.0 03/04/18 23:53 96 19 84/34 (51) 96 Oxymask 2.0 03/04/18 23:48 99 23 78/34 (49) 100 Oxymask 2.0 03/04/18 23:45 Oxymask 2.0 03/04/18 23:30 95 17 83/49 (60) Oxymask 2.0 18 23:18 86 17 85/58 (67) 100 Oxymask 2.0 03/04/18 23:16 89 19 100/34 (56) 100 Oxymask 2.0 03/04/18 23:00 91 16 92/60 (71) 100 Oxymask 2.0 03/04/18 22:00 93 20 98/63 (68) 100 112/44 03/04/18 22:00 100 Oxymask 2.0 03/04/18 22:00 37.1 93 20 112/44 (66) 100 Oxymask 2.0 18 21:45 106 19 97/59 (69) 100 112/42 18 21:35 102 18 99/60 (75) 100 Oxymask 3 18 21:25 37.1 93 17 107/65 100 Oxymask 3 18 21:15 86 19 100/53 100 Oxymask 3 18 21:05 92 16 126/63 100 Oxymask 5 18 20:55 95 25 130/67 100 Oxymask 5 18 20:46 37.5 102 19 130/72 100 Oxymask 5 03/04/18 16:00 Room Air 03/04/18 15:15 36.5 97 16 92/57 (69) 96 Room Air 03/04/18 13:49 36.8 96 20 101/55 (70) 94 Room Air 03/04/18 10:50 36.6 95 20 97/61 (73) 94 Room Air Physical Exam General Appearance: no apparent distress (openes his eyes on command, and follows simple commands) Respiratory/Chest: + decreased breath sounds, + rhonchi Abdomen: normal bowel sounds, non tender, soft Neurologic/Psychiatric: + pertinent finding (pt oriented to self, not confident with reliability of complexity of condition) Skin: warm/dry (shiny in lower extremities, multiple skin protectants in place on heels, etc) Laboratory Results Last 24 Hours Test 03/04/18 13:00 03/04/18 21:47 03/04/18 21:52 03/04/18 23:34 Peritoneal Fluid Color MESSI Peritoneal Fluid Appearance CLOUDY Peritoneal Fluid WBC 90523 /uL Peritoneal Fluid RBC 76278 /uL Peritoneal Fld Mononuclear WBCs (%) 2.8 % Peritoneal Fld Polynuclear WBCs (%) 97.2 % Peritoneal Fluid Total Protein 3.2 g/dl Peritoneal Fluid Albumin 1.7 g/dl Peritoneal Fluid LDH 188 IU Peritoneal Fluid Glucose 32 mg/dl White Blood Count 5.45 K/uL Red Blood Count 2.48 M/uL Hemoglobin 7.8 g/dL Hematocrit 23.3 % Mean Corpuscular Volume 94.0 fL Mean Corpuscular Hemoglobin 31.5 pg Mean Corpuscular Hemoglobin Concent 33.5 g/dl Platelet Count 202 K/uL Mean Platelet Volume 10.1 fL Neutrophils (%) (Auto) 91.3 % Lymphocytes (%) (Auto) 3.9 % Monocytes (%) (Auto) 4.2 % Eosinophils (%) (Auto) 0.0 % Basophils (%) (Auto) 0.2 % Neutrophils # (Auto) 4.98 K/uL Lymphocytes # (Auto) 0.21 K/uL Monocytes # (Auto) 0.23 K/uL Eosinophils # (Auto) 0.00 K/uL Basophils # (Auto) 0.01 K/uL RDW Standard Deviation 54.6 fL RDW Coefficient of Variation 16.5 % Immature Granulocyte % (Auto) 0.4 % Immature Granulocyte # (Auto) 0.02 K/uL Red Blood Cell Morphology Unremarkable Sodium Level 139 mmol/L Potassium Level 4.3 mmol/L Chloride Level 109 mmol/L Carbon Dioxide Level 20 mmol/L Anion Gap 9.0 mmol/L Blood Urea Nitrogen 72 mg/dl Creatinine 2.53 mg/dl Est Creatinine Clear Calc Drug Dose 20.2 ml/min Estimated GFR () 25.1 Estimated GFR (Non- 21.6 BUN/Creatinine Ratio 28.4 Random Glucose 104 mg/dl Calcium Level 8.5 mg/dl Phosphorus Level 3.9 mg/dl Magnesium Level 2.0 mg/dl Total Bilirubin 0.7 mg/dl Direct Bilirubin 0.5 mg/dl Aspartate Amino Transf (AST/SGOT) 10 U/L Alanine Aminotransferase (ALT/SGPT) 9 U/L Alkaline Phosphatase 94 U/L Total Protein 5.9 gm/dl Albumin 2.9 gm/dl Lipase 138 U/L Bedside Glucose 112 mg/dl Urine Color YELLOW Urine Appearance TURBID Urine pH 5.0 Urine Specific [place] 1.017 Urine Protein 2+ Urine Glucose (UA) NEG Urine Ketones NEG Urine Occult Blood 2+ Urine Nitrite NEG Urine Bilirubin NEG Urine Urobilinogen NEG Urine Leukocyte Esterase NEG Urine WBC (Auto) 1-5 /hpf Urine RBC (Auto) 0-4 /hpf Urine Hyaline Casts (Auto) 10-30 /lpf Urine Epithelial Cells (Auto) >30 /lpf Urine Bacteria (Auto) NEG Urine Pathogenic Casts 0-3 GRANULAR CASTS /lpf Urine Yeast (Auto) Test 03/04/18 23:46 03/05/18 01:56 03/05/18 02:41 03/05/18 05:10 Bedside Glucose 97 mg/dl Hemoglobin 6.8 g/dL Hematocrit 20.9 % Lactic Acid Level 1.1 mmol/L Troponin I 0.033 ng/ml Blood Gas Sample Site L Radial Bedside Blood Gas pH (LAB) 7.37 Bedside Blood Gas pCO2 (LAB) 33 mmHg Bedside Blood Gas pO2 (LAB) 102 mmHg Bedside Blood Gas HCO3 (LAB) 19 meq/L Bedside Blood Gas Total CO2 20 mEq/l Bedside Blood Gas Base Excess (LAB) -6.0 meq/L Bedside Blood Gas O2 Saturation 98.0 % [place] Test NA Oxygen Delivery Device VentiMask Bedside FiO2 28 % Sodium Level 138 mmol/L Potassium Level 4.2 mmol/L Chloride Level 111 mmol/L Carbon Dioxide Level 18 mmol/L Anion Gap 9.0 mmol/L Blood Urea Nitrogen 71 mg/dl Creatinine 2.60 mg/dl Est Creatinine Clear Calc Drug Dose 19.6 ml/min Estimated GFR () 24.3 Estimated GFR (Non- 20.9 BUN/Creatinine Ratio 27.4 Random Glucose 111 mg/dl Calcium Level 8.0 mg/dl Phosphorus Level 3.7 mg/dl Magnesium Level 2.1 mg/dl Lipase 57 U/L Test 03/05/18 06:33 03/05/18 08:17 Bedside Glucose (other) 107 mg/dl White Blood Count 7.24 K/uL Red Blood Count 2.90 M/uL Hemoglobin 8.9 g/dL Hematocrit 26.6 % Mean Corpuscular Volume 91.7 fL Mean Corpuscular Hemoglobin 30.7 pg Mean Corpuscular Hemoglobin Concent 33.5 g/dl Platelet Count 192 K/uL Mean Platelet Volume 10.2 fL Neutrophils (%) (Auto) 85.0 % Lymphocytes (%) (Auto) 7.6 % Monocytes (%) (Auto) 6.2 % Eosinophils (%) (Auto) 0.1 % Basophils (%) (Auto) 0.3 % Neutrophils # (Auto) 6.15 K/uL Lymphocytes # (Auto) 0.55 K/uL Monocytes # (Auto) 0.45 K/uL Eosinophils # (Auto) 0.01 K/uL Basophils # (Auto) 0.02 K/uL RDW Standard Deviation 53.7 fL RDW Coefficient of Variation 16.9 % Immature Granulocyte % (Auto) 0.8 % Immature Granulocyte # (Auto) 0.06 K/uL Red Blood Cell Morphology Unremarkable Assessment and Plan Palliative Care Encounter GI Bleed Duodenal Ulcer Chronic A-Fib Palliative Care Recommendations: ADVANCED DIRECTIVE: -Code status was addressed previously with the patients son, Robe; and he stated that he wanted his father to remain Full Code unless he was terminal - That being said, I believe this conversation is appropriate to have again in order to have a good understanding of what CPR means and intubation. GI Bleed: -Patient Hgb/Hct was 6.8/20.9 over night. 2 UPRBC provided. -Patient requiring Levophed for inotropic support. Plan to wean; however, cuff pressure is correlating. -Family in support of continuing transfusion if needed at this time. -Family discussing internally about escalating care if patient decompensates CHRONIC A-FIB: -Patient remains in Afib 90-100.Continue supportive medications DISCHARGE PLANNING: -When medically appropriate, consider discharging to [facility] with possible Hospice transition. Palliative Performance Scale: 30 % Continued [facility] stay due to: multiple IV medications needed (patient on inotropic support) Discharge planning: shelter facility (with or without hospice based on family discussion), uncertain Counseling and Coordination Total time spent 45 minutes with > 50% of that time discussing plan of care with IDT members and assessing the patient, holding family meeting with patient son and providing a POLST form.
[2018-03-05] MEDS ORDERED: NURSING VERBAL MED ORDER ONE (10:30)
[2018-03-05] MEDS ORDERED: D5W AND NSS 1,000 ML IV SCH (10:45)
--- NOTE | 2018-03-05 12:06 | Progress Note ---
Progress Note Date of Service Mar 05, 2018. (Samra Voss CRNP) Progress Note Pt taken yesterday evening to OR for abdominal washout, exploration and duodenal oversew for perforated ulcer. He received 2U PRBC last night, Hgb up to 8.9. He is currently in ICU. Extubated. BP low, on Levophed. His BRIAN drain is putting out serosangenous fluid. No having any signs of pain when abd is palpated. He's mostly complaining of ankle, heel pain. Son Robe in room - pt's goals of care is being discussed amongst Robe, Dr. Arriola (ICU attending), Cori Bansal (Palliative care [facility]). VS, Labs, Current Meds reviewed in Chart. - Diet advancement per Surgery - Keep Protonix 40mg IV BID - Antibiotic for enteric indira; currently on Zosyn IV - No new GI plans, will sign off. Call if new questions/concerns arise. (Samra Voss CRNP) Attending attestation I have seen, examined this patient, and agree with the findings and above by our mid-level provider Jessica Stewart. -Went for repair of perforation last robny, still requiring very minimal doses of pressors. Family deciding upon goals of care. -GI will sign off -Recall if any questions. (Thom Negro MD)
--- NOTE | 2018-03-05 17:28 | Progress Note ---
Progress Note Date of Service Mar 05, 2018. Progress Note Subjective: Patient transitioned out of ICU. Patient is hard of hearing but verbal and responds to questions. Reports he feels thirsty. Was explained that he has IV fluids running. Patient also able to report that he is in the [place] in the hospital. Patient denies acute pain Physical exam General - not in acute distress Head- atraumatic Eyes- EOMI Neck- supple, no JVD Lungs- on room air, no wheezing, fair air entry Heart- regular rhythm Abdomen- abdominal dressing with BRIAN drain - has downs Extremities- no calf tenderness, no leg edema Neuro- awake, verbal Assessment and Plan Anemia from blood loss from duodenal ulcer and perforated duodenal ulcer requiring surgery 87-year-old male who presents the ED from [facility] for evaluation of black stools On admission 02/27/18 was anemic with hemoglobin of 5.8 received 2 units of PRBC on 02/27/18 Had EGD performed on 02/28/18: One oozing duodenal ulcer with a visible vessel. Injected. Treated with bipolar cautery. Clips (MR conditional) were placed. received 1 unit of PRBC on 02/28/18, received 1 unit of PRBC on 03/01/18 received 2 units of PRBC on 03/05/18 CT abdomen/pelvis concerning for abdominal ascites On 03/05/18: A total of 2.7 L of clear brown ascites was aspirated On 03/05/18: was taken to the operating room for Diagnostic Laparoscopy; abdominal wash out; oversew duodenal ulcer with bob patch as a result of perforated duodenal ulcer Most recent 03.06, continue to monitor CBC General surgery continues to follow the patient as he still has BRIAN drain from 03/05/18 procedure Abdominal Pain s/p surgery pain controlled with opioids maintain NPO for now Keep Protonix 40mg IV BID Possible liver cirrhosis and spontaneous bacterial peritonitis ascites cultures as gram negative bacilli, currently on Zosyn IV; follow up cultures Hypotension was on vasopressors in the ICU, monitor blood pressure maintenance IV fluids CHRONIC ATRIAL FIBRILLATION Not on anticoagulant due to fall risks monitor heart rate have ordered lopressor 2.5 mg IV q6h prn for heart rate above 110 bpm with hold parameters for hypotension Hydration changed IV fluids from D5W 100cc/hr to 75 cc/hr D5 1/2 normal saline BILATERAL PLEURAL EFFUSIONS has been saturating on room air was given Lasix previously during this hospital admission Continue to monitor respiratory status while on IV fluids RIGHT-SIDED HEART FAILURE SEVERE AORTIC STENOSIS CXR showed developing congestive heart failure. was given Lasix previously during this hospital admission Continue to monitor respiratory status while on IV fluids ELEVATED TROPONIN on admission Likely demand ischemia secondary to profound anemia CKD STAGE IV with acute kidney injury IV fluids PT/OT Speech and Swallow reassessment DVT PROPHYLAXIS SCDs CODE STATUS Palliative care have assessed the patient and code status was changed on 03/05/18 to DNR/DNI Patient's family members son and POA Salty [phone] son and GEOVANNA Nagel [phone] son Wojciech [phone] son Don [phone]
[2018-03-05] MEDS ORDERED: METOPROLOL TARTRATE 1 MG/ML VIAL IV PRN (17:45)
[2018-03-05] MEDS: HYDROmorphone INJ 0.5 MG/0.5 ML SYR IV PRN (23:58)
[2018-03-06] VITALS (8 sets, daily range): BP systolic 95–119; BP diastolic 58–78; PULSE 86–103; TEMP 36.4–37; O2SAT 94–100
[2018-03-06] MEDS: PIPERACILL/TAZOBAC IV 3.375 GM in D5W 100ML IV SCH ×3 (02:31→17:18)
[2018-03-06] MEDS: D5W AND 1/2NSS 1,000 ML IV SCH (06:44)
[2018-03-06 06:54] LABS: EOS % 0.2 %; EOS ABS # 0.01 K/uL (0-0.5); HEMOGLOBIN 8.3 g/dL (14.0-18.0); IG# 0.02 K/uL (0.00-0.02); LYMPH % 3.5 %; LYMPH ABS # 0.23 K/uL (1.2-3.4); MEAN CELL VOLUME 90.9 fL (80-100); MEAN CORPUSCULAR HEMOGLOBIN 30.2 pg (25-34); MEAN CORPUSCULAR HGB CONC 33.2 g/dl (32-36); MEAN PLATELET VOLUME 9.8 fL (7.4-10.4); MONO % 4.4 %; MONO ABS # 0.29 K/uL (0.11-0.59); NEUT % 91.6 %; NEUT ABS # 6.03 K/uL (1.4-6.5); PLATELET COUNT 205 K/uL (130-400); RED CELL DISTRIBUTION WIDTH CV 17.7 % (11.5-14.5); RED CELL DISTRIBUTION WIDTH SD 56.7 fL (36.4-46.3); WHITE BLOOD COUNT 6.58 K/uL (4.8-10.8)
--- NOTE | 2018-03-06 07:11 | DIAGNOSTIC IMAGING REPORT ---
CHEST ONE VIEW PORTABLE CLINICAL HISTORY: 87 years-old Male presenting with post op. TECHNIQUE: Portable upright AP view of the chest was obtained. COMPARISON: 03/05/2018. FINDINGS: The nasogastric tube has been removed. Atherosclerosis of the aortic arch. Cardiac silhouette moderately enlarged. Interval increase in the now large layering right pleural effusion. Stable small layering left pleural effusion. Extensive lower lobe opacity. No pneumothorax. Degenerative changes of the thoracic spine. Degenerative changes of the left glenohumeral joint. Lucency in the upper abdomen possibly gaseous distention of bowel. IMPRESSION: 1. Increased size of a now large layering right pleural effusion. 2. Stable layering small left pleural effusion. 3. Extensive bibasilar atelectasis. 4. Cardiomegaly. Electronically signed by: Asad Beltre M.D. 03/06/2018 7:09 AM Dictated Date/Time: 03/06/2018 7:07 AM
--- NOTE | 2018-03-06 07:12 | Surgery Progress Note ---
Surgery Progress Note Date of Service Mar 06, 2018. Subjective Post OP Day: 2 more alert. "thirsty" Objective Vital Signs: Date Time Temp Pulse Resp B/P (MAP) Pulse Ox O2 Delivery O2 Flow Rate FiO2 03/06/18 06:59 36.4 86 18 104/58 (73) 98 Room Air 03/06/18 03:23 36.4 103 18 107/62 (77) 96 Room Air 03/06/18 00:00 Room Air 03/05/18 23:26 36.4 114 20 108/67 (81) 96 Room Air 03/05/18 20:00 Room Air 03/05/18 19:45 36.8 92 18 105/56 (72) 94 Room Air 03/05/18 18:00 37.2 100 18 98/63 (75) 96 Room Air 03/05/18 16:25 Room Air 03/05/18 16:25 36.5 97 20 99/65 (76) 92 Room Air 03/05/18 15:02 36.6 92 20 99 03/05/18 15:00 110 17 104/65 (78) 03/05/18 14:02 92 20 96/38 (57) 99 Room Air 115/75 (88) 03/05/18 13:30 100 15 94/41 (58) 96 Room Air 03/05/18 13:07 96 20 98/46 (63) 95 Room Air 103/59 (74) 03/05/18 12:00 36.6 89 21 92/53 (66) 95 Room Air 03/05/18 11:00 91 19 86/53 (64) 96 Room Air 03/05/18 10:46 94 20 89/32 (51) 03/05/18 10:30 88 16 79/47 (58) 98 Room Air 03/05/18 10:00 88 15 92/53 (66) 97 Room Air 03/05/18 09:00 87 20 83/42 (56) 100 Oxymask 2.0 03/05/18 08:30 89 17 91/59 (70) 100 Oxymask 2.0 03/05/18 08:00 36.8 94 19 100/54 (69) 100 Oxymask 2.0 03/05/18 08:00 Oxyhood 03/05/18 08:00 Oxymask 2.0 03/05/18 07:30 99 19 106/47 (66) 98 Oxymask 2.0 03/05/18 07:15 36.8 98 17 106/47 100 2.0 Physical Exam: BRIAN drainage (serous) Abdomen: non distended, soft Incision(s): clean, dry, intact, no erythema Laboratory Results: Results Past 24 Hours Test 03/05/18 08:17 03/05/18 11:59 03/06/18 06:38 Range/Units White Blood Count 7.24 6.58 4.8-10.8 K/uL Red Blood Count 2.90 2.75 4.7-6.1 M/uL Hemoglobin 8.9 8.3 14.0-18.0 g/dL Hematocrit 26.6 25.0 42-52 % Mean Corpuscular Volume 91.7 90.9 80-100 fL Mean Corpuscular Hemoglobin 30.7 30.2 25-34 pg Mean Corpuscular Hemoglobin Concent 33.5 33.2 32-36 g/dl Platelet Count 192 205 130-400 K/uL Mean Platelet Volume 10.2 9.8 7.4-10.4 fL Neutrophils (%) (Auto) 85.0 91.6 % Lymphocytes (%) (Auto) 7.6 3.5 % Monocytes (%) (Auto) 6.2 4.4 % Eosinophils (%) (Auto) 0.1 0.2 % Basophils (%) (Auto) 0.3 0.0 % Neutrophils # (Auto) 6.15 6.03 1.4-6.5 K/uL Lymphocytes # (Auto) 0.55 0.23 1.2-3.4 K/uL Monocytes # (Auto) 0.45 0.29 0.11-0.59 K/uL Eosinophils # (Auto) 0.01 0.01 0-0.5 K/uL Basophils # (Auto) 0.02 0.00 0-0.2 K/uL RDW Standard Deviation 53.7 56.7 36.4-46.3 fL RDW Coefficient of Variation 16.9 17.7 11.5-14.5 % Immature Granulocyte % (Auto) 0.8 0.3 % Immature Granulocyte # (Auto) 0.06 0.02 0.00-0.02 K/uL Red Blood Cell Morphology Unremarkable Bedside Glucose (other) 131 70-99 mg/dl Assessment & Plan 03/06/18 pt doing as well as could be expected no acute post op surgical issues can have a few ice chips today labs pending 03/05/18 POD 1 doing as well as we could hope BP and Hg both improved after 2 units PRBC's. suspect he may need more PRBC's. no evidence of bleeding. still on Levo. BP borderline. BRIAN serous--no bile or ascites pt pulled NGT. will just leave it out. Keep NPO. continue antibiotics. I appreciate everyone's help. POD 1 doing as well as we could hope BP and Hg both improved after 2 units PRBC's. suspect he may need more PRBC's. no evidence of bleeding. still on Levo. BP borderline. BRIAN serous--no bile or ascites pt pulled NGT. will just leave it out. Keep NPO. continue antibiotics. I appreciate everyone's help.
[2018-03-06 07:28] LABS: CALCIUM 8.6 mg/dl (8.5-10.1); CREATININE 2.61 mg/dl (0.60-1.40); PHOSPHORUS 3.3 mg/dl (2.5-4.9); POTASSIUM 3.8 mmol/L (3.5-5.1)
[2018-03-06] MEDS: ALLOPURINOL 300 MG TAB PO SCH (08:12)
[2018-03-06] MEDS: PANTOprazole INJ 40 MG in SYRINGE 0 ML IV SCH ×2 (08:12→20:33)
--- NOTE | 2018-03-06 17:18 | Progress Note ---
Progress Note Date of Service Mar 06, 2018. Progress Note Subjective: Patient on telemetry hernández. Patient is hard of hearing but verbal and responds to questions. However speech is often rambling. Patient denies acute pain. Is cooperative on physical exam but needs assistance to sit up Physical exam General - not in acute distress, as above Head- atraumatic Eyes- EOMI Neck- supple, no JVD Lungs- on room air, no wheezing, fair air entry Heart- regular rhythm and rate Abdomen- abdominal dressing with BRIAN drain - has downs Extremities- no calf tenderness, no leg edema Neuro- awake, verbal Assessment and Plan Anemia from blood loss from duodenal ulcer and perforated duodenal ulcer requiring surgery 87-year-old male who presents the ED from [facility] for evaluation of black stools On admission 02/27/18 was anemic with hemoglobin of 5.8 received 2 units of PRBC on 02/27/18 Had EGD performed on 02/28/18: One oozing duodenal ulcer with a visible vessel. Injected. Treated with bipolar cautery. Clips (MR conditional) were placed. received 1 unit of PRBC on 02/28/18, received 1 unit of PRBC on 03/01/18 received 2 units of PRBC on 03/05/18 CT abdomen/pelvis concerning for abdominal ascites On 03/05/18: A total of 2.7 L of clear brown ascites was aspirated On 03/05/18: was taken to the operating room for Diagnostic Laparoscopy; abdominal wash out; oversew duodenal ulcer with bob patch as a result of perforated duodenal ulcer General surgery continues to follow the patient as he still has BRIAN drain from 03/05/18 procedure Most recent 8.9 to 8.3, continue to monitor CBC Abdominal pain controlled with opioids Protonix 40mg IV BID Possible liver cirrhosis and spontaneous bacterial peritonitis ascites cultures as Klebsiella Pneumonia, continue Zosyn IV, Infectious disease consult requested on duration of antibiotic coverage and antibiotic de- escalation Hypotension blood pressure stable currently off IV fluids Hydration and nutrition Diet advanced BILATERAL PLEURAL EFFUSIONS Chest X ray 03/06/18 1. Increased size of a now large layering right pleural effusion. 2. Stable layering small left pleural effusion. 3. Extensive bibasilar atelectasis. 4. Cardiomegaly. -Monitor off IV fluids -Give Lasix 40 mg IV x 1 RIGHT-SIDED HEART FAILURE SEVERE AORTIC STENOSIS CXR showed developing congestive heart failure. was given Lasix previously during this hospital admission Continue to monitor respiratory status while on IV fluids -Give Lasix 40 mg IV x 1 ELEVATED TROPONIN on admission Likely demand ischemia secondary to profound anemia CHRONIC ATRIAL FIBRILLATION Not on anticoagulant due to fall risks Lopressor 2.5 mg IV q6h prn for heart rate above 110 bpm with hold parameters for hypotension CKD STAGE IV with acute kidney injury monitor off IV fluids for now PT/OT DVT PROPHYLAXIS SCDs CODE STATUS Palliative care have assessed the patient and code status was changed on 03/05/18 to DNR/DNI Patient's family members son and POA Salty [phone] son and GEOVANNA Nagel [phone] son Wojciech [phone] son Don [phone]
[2018-03-06] MEDS ORDERED: FUROSEMIDE INJ 40 MG in SYRINGE 0 ML IV ONE (17:30)
[2018-03-06] MEDS: TRAMADOL HCL 50 MG TAB PO PRN (21:13)
[2018-03-07] VITALS (7 sets, daily range): BP systolic 109–146; BP diastolic 64–84; PULSE 86–114; TEMP 36.5–37; O2SAT 95–98
[2018-03-07] MEDS: PIPERACILL/TAZOBAC IV 3.375 GM in D5W 100ML IV SCH (02:17)
[2018-03-07] MEDS: TRAMADOL HCL 50 MG TAB PO PRN (04:40)
[2018-03-07 05:30] LABS: BASO % 0.1 %; BASO ABS # 0.01 K/uL (0-0.2); EOS % 0.1 %; EOS ABS # 0.01 K/uL (0-0.5); HEMATOCRIT 26.5 % (42-52); IG# 0.03 K/uL (0.00-0.02); LYMPH % 2.7 %; LYMPH ABS # 0.24 K/uL (1.2-3.4); MEAN CELL VOLUME 89.8 fL (80-100); MEAN CORPUSCULAR HEMOGLOBIN 30.5 pg (25-34); MEAN PLATELET VOLUME 9.3 fL (7.4-10.4); MONO % 6.5 %; MONO ABS # 0.58 K/uL (0.11-0.59); NEUT % 90.3 %; NEUT ABS # 8.09 K/uL (1.4-6.5); PLATELET COUNT 221 K/uL (130-400); RED CELL DISTRIBUTION WIDTH SD 53.3 fL (36.4-46.3); WHITE BLOOD COUNT 8.96 K/uL (4.8-10.8)
[2018-03-07 05:39] LABS: INR 1.3 (0.9-1.1)
[2018-03-07 05:51] LABS: ALBUMIN 2.4 gm/dl (3.4-5.0); CALCIUM 8.4 mg/dl (8.5-10.1); CREATININE 2.71 mg/dl (0.60-1.40); PHOSPHORUS 3.1 mg/dl (2.5-4.9); POTASSIUM 3.3 mmol/L (3.5-5.1); TOTAL PROTEIN 5.6 gm/dl (6.4-8.2)
[2018-03-07] MEDS ORDERED: POTASSIUM CHLORIDE 20 MEQ TABCR PO STA (07:12)
--- NOTE | 2018-03-07 07:27 | Progress Note ---
Post ICU Progress Note Date & Time Mar 07, 2018 at 07:24 Vital Signs Vital Signs Past 12 Hours Date Time Temp Pulse Resp B/P (MAP) Pulse Ox O2 Delivery O2 Flow Rate FiO2 03/07/18 07:00 36.6 89 18 109/68 (82) 97 Room Air 03/07/18 04:00 36.5 86 18 116/73 (87) 96 Room Air 03/06/18 23:25 36.7 93 18 119/78 (92) 96 Room Air 03/06/18 22:46 112 114/78 03/06/18 20:00 Room Air Notes Mental Status: participated in evaluation Nausea / Vomiting: adequately controlled Pain: adequately controlled Airway Patency, RR, SpO2: stable & adequate BP & HR: stable & adequate Patient is an 87-year-old male who was initially admitted to the ICU postoperatively after undergoing ex lap with repair of perforated duodenal ulcer. The patient did require 2 units of PRBCs and vasopressors overnight. He had great improvement overnight and eventually was downgraded from an ICU status. On evaluation today, the patient is more awake. He is unable to communicate well at baseline. He appears comfortable overall. Consider outpatient follow up in 1 to 2 weeks with: PCP, General Surgery Repeat imaging needed: Per admitting services. Follow up cultures: None Reviewed progress notes, labs, and inpatient medication list Continue current management Additional recommendations: None at this time. Thank you for allowing us to participate in the care of this patient. At this time, Critical Care Services will sign off on this patient. Please feel free to reconsult as needed. Consults & Procedures Consultants: Gastroenterology Procedures: EGD February 28 2018
--- NOTE | 2018-03-07 07:44 | Surgery Progress Note ---
Surgery Progress Note Date of Service Mar 07, 2018. Subjective Post OP Day: 3 + pain controlled, + diet (Regular diet per medicine), No complaints, No bowel movement, No flatus, No nausea, No vomiting Patient resting in bed, alert but somewhat disoriented. Patient's son at bedside. per patient's son - patient tolerated soft foods last night. Urinating with assistance from nursing staff at bedside urinal. pain controlled. seems more alert. Objective Vital Signs: Date Time Temp Pulse Resp B/P (MAP) Pulse Ox O2 Delivery O2 Flow Rate FiO2 03/07/18 07:00 36.6 89 18 109/68 (82) 97 Room Air 03/07/18 04:00 36.5 86 18 116/73 (87) 96 Room Air 03/06/18 23:25 36.7 93 18 119/78 (92) 96 Room Air 03/06/18 22:46 112 114/78 03/06/18 20:00 Room Air 03/06/18 19:23 37.0 103 18 103/59 (74) 96 Room Air 03/06/18 15:42 36.4 100 16 100/63 (75) 94 Room Air 03/06/18 15:30 Room Air 03/06/18 15:12 91 96 03/06/18 10:59 36.4 92 18 112/64 (80) 100 Room Air 03/06/18 08:00 Room Air 03/06/18 07:49 36.5 100 18 106/65 (79) 96 Room Air Physical Exam: BRIAN drainage (470ml/150ml serosang) General Appearance: no apparent distress Head: atraumatic Respiratory/Chest: no respiratory distress Abdomen: soft, no organomegaly, + distended (mild), + tenderness (incisional) Incision(s): clean, dry, intact, no erythema, drainage (mild into dressing at drain site.) Laboratory Results: Results Past 24 Hours Test 03/07/18 05:21 03/07/18 05:22 Range/Units Prothrombin Time 13.3 9.0-12.0 SECONDS Prothromb Time International Ratio 1.3 0.9-1.1 Sodium Level 138 136-145 mmol/L Potassium Level 3.3 3.5-5.1 mmol/L Chloride Level 109 98-107 mmol/L Carbon Dioxide Level 21 21-32 mmol/L Anion Gap 8.0 3-11 mmol/L Blood Urea Nitrogen 61 7-18 mg/dl Creatinine 2.71 0.60-1.40 mg/dl Est Creatinine Clear Calc Drug Dose 17.5 ml/min Estimated GFR () 23.1 Estimated GFR (Non- 19.9 BUN/Creatinine Ratio 22.5 10-20 Random Glucose 80 70-99 mg/dl Calcium Level 8.4 8.5-10.1 mg/dl Phosphorus Level 3.1 2.5-4.9 mg/dl Magnesium Level 2.1 1.8-2.4 mg/dl Total Bilirubin 1.3 0.2-1 mg/dl Aspartate Amino Transf (AST/SGOT) 7 15-37 U/L Alanine Aminotransferase (ALT/SGPT) 8 12-78 U/L Alkaline Phosphatase 126 45-117 U/L Ammonia < 10.0 11-32 umol/L Total Protein 5.6 6.4-8.2 gm/dl Albumin 2.4 3.4-5.0 gm/dl Globulin 3.2 2.5-4.0 gm/dl Albumin/Globulin Ratio 0.8 0.9-2 White Blood Count 8.96 4.8-10.8 K/uL Red Blood Count 2.95 4.7-6.1 M/uL Hemoglobin 9.0 14.0-18.0 g/dL Hematocrit 26.5 42-52 % Mean Corpuscular Volume 89.8 80-100 fL Mean Corpuscular Hemoglobin 30.5 25-34 pg Mean Corpuscular Hemoglobin Concent 34.0 32-36 g/dl Platelet Count 221 130-400 K/uL Mean Platelet Volume 9.3 7.4-10.4 fL Neutrophils (%) (Auto) 90.3 % Lymphocytes (%) (Auto) 2.7 % Monocytes (%) (Auto) 6.5 % Eosinophils (%) (Auto) 0.1 % Basophils (%) (Auto) 0.1 % Neutrophils # (Auto) 8.09 1.4-6.5 K/uL Lymphocytes # (Auto) 0.24 1.2-3.4 K/uL Monocytes # (Auto) 0.58 0.11-0.59 K/uL Eosinophils # (Auto) 0.01 0-0.5 K/uL Basophils # (Auto) 0.01 0-0.2 K/uL RDW Standard Deviation 53.3 36.4-46.3 fL RDW Coefficient of Variation 17.0 11.5-14.5 % Immature Granulocyte % (Auto) 0.3 % Immature Granulocyte # (Auto) 0.03 0.00-0.02 K/uL Assessment & Plan POD #3 s/p Diagnostic Laparoscopy; abdominal wash out; oversew duodenal ulcer with bob patch Alert but still somewhat disoriented. Pain controlled. Abdomen soft w/ some distention and TTP. BRIAN serosang. Mechanical soft diet last night, no N/V. Urinating okay with assistance. H&H stable. Continue IV Abx. No post-op surgical issues at this time. Will continue to monitor closely. Contact with questions or concerns.
[2018-03-07] MEDS: ALLOPURINOL 300 MG TAB PO SCH (09:00)
[2018-03-07] MEDS: PANTOprazole INJ 40 MG in SYRINGE 0 ML IV SCH ×2 (09:27→20:04)
--- NOTE | 2018-03-07 11:38 | INFECT. DISEASE CONSULTATION ---
DATE OF CONSULTATION: 03/07/2018 HISTORY OF PRESENT ILLNESS: This is an 87-year-old gentleman who was admitted from [facility] after he was found to have melena. He did undergo an EGD on the which showed a duodenal ulcer. He was treated initially in the intensive care unit and subsequently transferred to the floor. On the , he had worsening abdominal pain which he described as 10/10 and he was found to have a perforated ulcer. He went to the OR and had laparoscopic repair of this and washout. Intraoperative cultures are growing Klebsiella pneumonia, Enterobacter and Dayna albicans. He has been on Zosyn since the and appears to be tolerating this well. He has been afebrile. His white blood cell count has not been elevated. He did receive blood transfusions throughout this admission. His creatinine is elevated at 2.7. On my examination, the patient is lethargic and opens his eyes to his name, but is nonverbal and unable to provide any additional review of systems. He has been afebrile and vital signs have been stable. Blood cultures were obtained on the as well and are negative. Urine culture from the is negative as well. Infectious diseases was consulted for duration of antibiotic therapy. PAST MEDICAL HISTORY: Significant for anemia, AFib, chronic kidney disease, dyslipidemia, pulmonary hypertension, congestive heart failure, aortic stenosis, venous stasis. PAST SURGICAL HISTORY: Significant for shoulder surgery, hernia repair, cataract repair, EGD and duodenal ulcer repair during this admission. FAMILY HISTORY: Noncontributory. SOCIAL HISTORY: Unremarkable. ALLERGIES: There are no known drug allergies. MEDICATIONS: Zosyn, Lopressor, Protonix, Dilaudid, Ultram, allopurinol, Tylenol and Zofran. PHYSICAL EXAMINATION: VITAL SIGNS: He is afebrile, pulse 106, respiratory rate 16, blood pressure 125/64, oxygen saturation is 95% on room air. GENERAL: He is responsive to name, but nonverbal. HEART: Regular. Murmur noted. LUNGS: Clear. ABDOMEN: Nondistended. EXTREMITIES: There is no edema. He is cachectic appearing. LABORATORY STUDIES: CBC: White blood cell count 8.9, hemoglobin 9, platelets 221. Chemistry panel: Sodium 138, potassium 3.3, chloride 109, bicarbonate 21, BUN 61, creatinine 2.7, glucose 133. UA was negative. Fluid from the 7th grew 13,890 white blood cells with 97% neutrophils. Blood cultures from the are negative to date. Abdominal culture is growing Klebsiella pneumonia, Enterobacter and Dayna albicans. Isolates were pansensitive. Urine culture is negative. Chest x-ray on the showed a right pleural effusion. ASSESSMENT AND PLAN: Peritonitis from ruptured duodenal ulcer. He can be continued on intravenous antibiotics. I would suggest changing to Unasyn for more narrow coverage, but also this will include anaerobic coverage. I would also include fluconazole for Dayna coverage. I would give an additional 2 weeks of antibiotics. Thank you for this consultation.
--- NOTE | 2018-03-07 11:45 | Progress Note ---
Progress Note Date of Service Mar 07, 2018. Progress Note ID Consult Dictated #[id number] A/P: 1. Peritonitis due to perforated ulcer s/p repair -Suggest change to unasyn or renal dosed augmentin x 14 days -Suggest addition of fluconazole 100mg daily x 14 days -thank you
--- NOTE | 2018-03-07 12:23 | Progress Note ---
Progress Note Date of Service Mar 07, 2018. Progress Note Subjective: Patient on telemetry hernández. Patient is hard of hearing but verbal and responds to questions. However speech is often rambling. Physical exam General - not in acute distress, as above Head- atraumatic Eyes- EOMI Neck- supple, no JVD Lungs- on room air, no wheezing, fair air entry with some decrease breath sounds on right lung yee compared to left lung yee Heart- regular rhythm and rate Abdomen- abdominal dressing with BRIAN drain Extremities- no calf tenderness, no leg edema Neuro- awake, verbal Assessment and Plan Anemia from blood loss from duodenal ulcer and perforated duodenal ulcer requiring surgery 87-year-old male who presents the ED from [facility] for evaluation of black stools On admission 02/27/18 was anemic with hemoglobin of 5.8 received 2 units of PRBC on 02/27/18 Had EGD performed on 02/28/18: One oozing duodenal ulcer with a visible vessel. Injected. Treated with bipolar cautery. Clips (MR conditional) were placed. received 1 unit of PRBC on 02/28/18, received 1 unit of PRBC on 03/01/18 received 2 units of PRBC on 03/05/18 CT abdomen/pelvis concerning for abdominal ascites On 03/05/18: A total of 2.7 L of clear brown ascites was aspirated On 03/05/18: was taken to the operating room for Diagnostic Laparoscopy; abdominal wash out; oversew duodenal ulcer with bob patch as a result of perforated duodenal ulcer General surgery continues to follow the patient as he still has BRIAN drain from 03/05/18 procedure Most recent Hgb is 9, monitor CBC Abdominal pain controlled with opioids Protonix 40mg IV BID Peritonitis from ruptured duodenal ulcer ascites cultures as Klebsiella Pneumonia, has been on Zosyn IV Infectious disease consult recommended 2 weeks of narrow spectrum coverage with Unasyn vs Augmentin (Unasyn ordered today in place of Zosyn) Infectious disease consult also recommended Fluconazole for Dayna coverage Hypotension blood pressure stable off IV fluids Hydration and nutrition General surgery prefers liquid diet after speech and swallow evaluation BILATERAL PLEURAL EFFUSIONS Chest X ray 03/06/18 1. Increased size of a now large layering right pleural effusion. 2. Stable layering small left pleural effusion. 3. Extensive bibasilar atelectasis. 4. Cardiomegaly. -Monitor off IV fluids -giving intermittent IV Lasix -ultrasound of the lung field ordered to identify extent of the right pleural effusion RIGHT-SIDED HEART FAILURE SEVERE AORTIC STENOSIS CXR showed developing congestive heart failure. was given Lasix previously during this hospital admission Continue to monitor respiratory status while on IV fluids -giving intermittent IV Lasix ELEVATED TROPONIN on admission Likely demand ischemia secondary to profound anemia CHRONIC ATRIAL FIBRILLATION Not on anticoagulant due to fall risks Lopressor 2.5 mg IV q6h prn for heart rate above 110 bpm with hold parameters for hypotension CKD STAGE IV with acute kidney injury monitor PT/OT DVT PROPHYLAXIS SCDs CODE STATUS Palliative care have assessed the patient and code status was changed on 03/05/18 to DNR/DNI Patient's family members son and POA Salty [phone] son and GEOVANNA Nagel [phone] son Wojciech [phone] son Don [phone]
[2018-03-07] MEDS ORDERED: AMPICILLIN/SULBACTAM CONSULT ACTIVE PRN (12:30)
[2018-03-07] MEDS ORDERED: FLUCONAZOLE / NSS 100 MG in PREMIXED NSS 50 ML IV ONE (12:30)
[2018-03-07] MEDS ORDERED: FUROSEMIDE INJ 20 MG in SYRINGE 0 ML IV ONE (12:30)
[2018-03-07] MEDS ORDERED: PIPERACILL/TAZOBAC IV 3.375 GM in D5W 100ML IV SCH (14:00)
--- NOTE | 2018-03-07 14:14 | DIAGNOSTIC IMAGING REPORT ---
ULTRASOUND OF THE PLEURAL SPACES CLINICAL HISTORY: Right pleural effusion. COMPARISON STUDY: Chest x-ray dated 03/06/[address] dated 02/26/2018. FINDINGS: Real-time grayscale sonography of the pleural spaces is performed. There is a moderate right pleural effusion with associated atelectasis. This has an estimated volume of 1439 cc. Trace pleural effusion is seen on the left with an estimated volume of 77 cc. These were not marked for bedside thoracentesis. IMPRESSION: Moderate right and trace left pleural effusions as above. Electronically signed by: Yusuf Aguilar M.D. 03/07/2018 2:13 PM Dictated Date/Time: 03/07/2018 2:08 PM
[2018-03-07] MEDS: AMPICILLIN/SULBACTAM SOD INJ 3,000 MG in SODIUM CHLORIDE 0.9% 100ML 100 ML IV SCH (14:40)
[2018-03-08] VITALS (7 sets, daily range): BP systolic 101–122; BP diastolic 63–71; PULSE 93–102; TEMP 36.4–37.1; O2SAT 90–98
[2018-03-08] MEDS: HYDROmorphone INJ 0.5 MG/0.5 ML SYR IV PRN (00:57)
[2018-03-08] MEDS: AMPICILLIN/SULBACTAM SOD INJ 3,000 MG in SODIUM CHLORIDE 0.9% 100ML 100 ML IV SCH ×3 (00:57→21:44)
[2018-03-08 07:42] LABS: HEMATOCRIT 30.1 % (42-52); HEMOGLOBIN 10.1 g/dL (14.0-18.0)
[2018-03-08 08:18] LABS: CREATININE 2.75 mg/dl (0.60-1.40)
[2018-03-08] MEDS: PANTOprazole INJ 40 MG in SYRINGE 0 ML IV SCH ×2 (09:33→21:44)
[2018-03-08] MEDS: ALLOPURINOL 300 MG TAB PO SCH (10:13)
[2018-03-08] MEDS: FLUCONAZOLE 100 MG TAB PO SCH (10:14)
[2018-03-08] MEDS ORDERED: BISACODYL 10 MG SUPP PR STA (10:37)
--- NOTE | 2018-03-08 10:37 | Surgery Progress Note ---
Surgery Progress Note Date of Service Mar 08, 2018. Subjective pt is stable, pt denies abdominal pain, pt's sons at bedside, no fever, no BM yet, speech therapy is at bedside, speech therapist recommend to full liquid diet, BRIAN 340 ml /24h clear slight yellow fluid Objective Vital Signs: Date Time Temp Pulse Resp B/P (MAP) Pulse Ox O2 Delivery O2 Flow Rate FiO2 03/08/18 07:04 36.6 97 18 111/68 (82) 96 Room Air 03/08/18 04:01 36.6 93 16 106/66 (79) 96 Room Air 03/07/18 23:02 36.9 91 15 125/79 (94) 95 Room Air 03/07/18 20:00 Room Air 03/07/18 19:28 37.0 92 16 126/84 (98) 98 Room Air 03/07/18 16:00 96 Room Air 03/07/18 15:54 36.7 114 16 146/78 (100) 96 Room Air 03/07/18 11:00 Room Air 03/07/18 10:48 36.5 106 16 125/64 (84) 95 Room Air General Appearance: WD/WN, no apparent distress Head: normocephalic Neck: supple, no JVD Respiratory/Chest: chest non-tender, lungs clear Cardiovascular: regular rate, rhythm, no edema Abdomen: normal bowel sounds, non tender, non distended, soft Incision(s): clean, dry, intact Extremities: normal range of motion, non-tender, normal inspection Laboratory Results: Results Past 24 Hours Test 03/08/18 07:22 03/08/18 07:30 Range/Units Creatinine 2.75 0.60-1.40 mg/dl Est Creatinine Clear Calc Drug Dose 17.9 ml/min Estimated GFR () 22.7 Estimated GFR (Non- 19.6 Hemoglobin 10.1 14.0-18.0 g/dL Hematocrit 30.1 42-52 % Assessment & Plan POD #4 s/p Diagnostic Laparoscopy; abdominal wash out; oversew duodenal ulcer with bob patch stable Pain controlled. Abdomen soft w/ some distention and TTP. BRIAN serosang. full liquid diet dulcolax pr H&H stable. Continue IV Abx. No post-op surgical issues at this time. Will continue to monitor closely. Contact with questions or concerns. full liquids
--- NOTE | 2018-03-08 12:50 | DIAGNOSTIC IMAGING REPORT ---
SINGLE VIEW CHEST CLINICAL HISTORY: Status post thoracentesis. FINDINGS: An AP, portable, upright chest radiograph is compared to study dated 03/06/2018. Correlation is made with chest CT dated 02/26/2018. The examination is degraded by portable technique and patient rotation. The heart is enlarged. The pulmonary vasculature is noncongested emphysema and chronic interstitial thickening are similar to previous. There are layering pleural effusions with bibasilar atelectasis. The right pleural effusion has decreased in size from 03/06/2018. No pneumothorax is seen. The skeletal structures are osteopenic. The bony thorax is grossly intact. A drain is suggested in the right upper quadrant of the abdomen. IMPRESSION: 1. No pneumothorax is identified post procedure. 2. There are layering pleural effusions with bibasilar atelectasis. The right pleural effusion has decreased in size from 03/06/2018. 3. Cardiomegaly without radiographic evidence of congestive failure. Electronically signed by: Yusuf Aguilar M.D. 03/08/2018 12:49 PM Dictated Date/Time: 03/08/2018 12:47 PM
[2018-03-08 13:32] LABS: PLEURAL FLUID TOTAL PROTEIN 2.6 g/dl
[2018-03-08 13:43] LABS: ALBUMIN 2.5 gm/dl (3.4-5.0); TOTAL PROTEIN 6.3 gm/dl (6.4-8.2)
--- NOTE | 2018-03-08 15:55 | Progress Note ---
Internal Med Progress Note Date of Service: Mar 08, 2018. Provider Documentation: Subjective: Patient on telemetry hernández. Patient is s/p right sided thoracentesis. Patient sleeping Physical exam General - not in acute distress, as above Head- atraumatic Neck- supple, no JVD Lungs- on room air, no wheezing, fair air entry on both sides of lung yee on anterior auscultation Heart- regular rhythm and rate Abdomen- abdominal dressing with BRIAN drain Extremities- no calf tenderness, no leg edema ASSESSMENT & PLAN: Anemia from blood loss from duodenal ulcer and perforated duodenal ulcer requiring surgery 87-year-old male who presents the ED from [facility] for evaluation of black stools On admission 02/27/18 was anemic with hemoglobin of 5.8 received 2 units of PRBC on 02/27/18 Had EGD performed on 02/28/18: One oozing duodenal ulcer with a visible vessel. Injected. Treated with bipolar cautery. Clips (MR conditional) were placed. received 1 unit of PRBC on 02/28/18, received 1 unit of PRBC on 03/01/18 received 2 units of PRBC on 03/05/18 CT abdomen/pelvis concerning for abdominal ascites On 03/05/18: A total of 2.7 L of clear brown ascites was aspirated On 03/05/18: was taken to the operating room for Diagnostic Laparoscopy; abdominal wash out; oversew duodenal ulcer with bob patch as a result of perforated duodenal ulcer General surgery continues to follow the patient as he still has BRIAN drain from 03/05/18 procedure Most recent Hgb is 10.1 Abdominal pain controlled with opioids Protonix 40mg IV BID Peritonitis from ruptured duodenal ulcer ascites cultures as Klebsiella Pneumonia, had been on Zosyn IV (last dose Infectious disease consult recommended 2 weeks of narrow spectrum coverage with Unasyn vs Augmentin (currently on Unasyn started on 03/07/18) Infectious disease consult also recommended Fluconazole for Dayna coverage ( started on 03/07/18) Blood pressure stable Hydration and nutrition liquid diet as tolerated BILATERAL PLEURAL EFFUSIONS -large right sided pleural effusion with thoracentesis performed on 03/08/[address] Arriola and post procedure CXR shows decrease in right side effusions RIGHT-SIDED HEART FAILURE SEVERE AORTIC STENOSIS previous CXR showed developing congestive heart failure. had been on Lasix previously, but will hold off further Lasix as pleural effusion of the right side has been addressed on 03/08/18 CKD STAGE IV with acute kidney injury monitor, re-evaluate the need for IV fluids after further review of lung yee ELEVATED TROPONIN on admission Likely demand ischemia secondary to profound anemia CHRONIC ATRIAL FIBRILLATION Not on anticoagulant due to fall risks Lopressor 2.5 mg IV q6h prn for heart rate above 110 bpm with hold parameters for hypotension PT/OT DVT PROPHYLAXIS SCDs CODE STATUS Palliative care have assessed the patient and code status was changed on 03/05/18 to DNR/DNI Patient's family members son and GEOVANNA Pond [phone] son Aniceto Nagel [phone] son Wojciech [phone] son Don [phone] Vital Signs: Date Time Temp Pulse Resp B/P (MAP) Pulse Ox O2 Delivery O2 Flow Rate FiO2 03/08/18 15:24 36.4 101 16 115/69 (84) 98 Room Air 03/08/18 11:41 36.8 95 18 110/68 (82) 90 Room Air 03/08/18 08:00 96 Room Air 03/08/18 07:04 36.6 97 18 111/68 (82) 96 Room Air 03/08/18 04:01 36.6 93 16 106/66 (79) 96 Room Air 03/07/18 23:02 36.9 91 15 125/79 (94) 95 Room Air 03/07/18 20:00 Room Air 03/07/18 19:28 37.0 92 16 126/84 (98) 98 Room Air 03/07/18 16:00 96 Room Air 03/07/18 15:54 36.7 114 16 146/78 (100) 96 Room Air Lab Results: Results Past 24 Hours Test 03/08/18 07:22 03/08/18 07:30 03/08/18 12:41 03/08/18 12:45 Range/Units Creatinine 2.75 0.60-1.40 mg/dl Est Creatinine Clear Calc Drug Dose 17.9 ml/min Estimated GFR () 22.7 Estimated GFR (Non- 19.6 Hemoglobin 10.1 14.0-18.0 g/dL Hematocrit 30.1 42-52 % Lactate Dehydrogenase 126 87-241 U/L Total Protein 6.3 6.4-8.2 gm/dl Albumin 2.5 3.4-5.0 gm/dl Pleural Fluid Source RIGHT LUNG Pleural Fluid Color MESSI Pleural Fluid Appearance CLOUDY Pleural Fluid WBC 3299 /uL Pleural Fluid RBC 56881 /uL Pleural Fluid Polynuclear WBCs % 88.7 % Pleural Fluid Mononuclear WBCs % 11.3 % Pleural Fluid Total Protein 2.6 g/dl Pleural Fluid LDH 137 IU Pleural Fluid Glucose 50 mg/dl Microbiology Results 03/08/18 Gram Stain - Final, Resulted 03/08/18 Bacterial Culture, Resulted Pending
--- NOTE | 2018-03-08 18:11 | Procedure Note ---
Procedure Note Procedure Date Mar 08, 2018. Procedure Description Procedure Name: Thoracentesis Procedure time out: side/site verified, patient ID confirmed, correct procedure Consent obtained: written Performed by: attending Indications: diagnostic, therapeutic Contraindications: none Description: Thoracentesis was done, requested by Dr. Perez, the patient had large right- sided pleural effusion, the patient status post perforated duodenal ulcer with oversew, consent obtained from the family member at the bedside, who is a healthcare proxy, risk and benefit explained details, agreed to the procedure. Under ultrasound guidance, right side of the chest while the patient is recumbent position, noted the pleural effusion, the skin was prepped with chlorhexidine, under strict sterile field, using Seldinger technique, 10 mL 4% lidocaine was injected to the sixth intercostal space at the mid axillary line, a catheter was introduced to the right pleural cavity, total of 1500 mL of blood -tinged fluid were removed, the catheter was removed and pressure was applied at the site for 2 minutes, patient tolerated the procedure very well, no immediate complication, chest x-ray showed reduction in the pleural effusion, pleural fluid were sent for analysis and appeared to be exudative, likely representing translocated inflammatory fluid from recent perforated peptic ulcer disease. Complications: none Patient tolerated procedure: well
[2018-03-09 04:25] VITALS: BP 120/76; PULSE 89; TEMP 36.8; O2SAT 98
[2018-03-09 06:54] VITALS: BP 108/67; PULSE 99; TEMP 36.7; O2SAT 100
[2018-03-09] MEDS: PANTOprazole INJ 40 MG in SYRINGE 0 ML IV SCH ×2 (09:01→21:48)
[2018-03-09] MEDS: ALLOPURINOL 300 MG TAB PO SCH (09:01)
[2018-03-09] MEDS: FLUCONAZOLE 100 MG TAB PO SCH (09:01)
[2018-03-09] MEDS ORDERED: POLYETHYLENE (MIRALAX) 17 GM PACK PO STA (10:02)
--- NOTE | 2018-03-09 10:13 | DIAGNOSTIC IMAGING REPORT ---
CHEST ONE VIEW PORTABLE CLINICAL HISTORY: Follow-up pleural effusions. COMPARISON STUDY: Chest radiograph March 08, 2018. FINDINGS: There is no pneumothorax. Skin folds project over the right hemithorax. Cardiomegaly is unchanged. Small to moderate right and small left pleural effusions persist. There is no radiographic evidence of pulmonary edema. IMPRESSION: No significant change in small to moderate bilateral pleural effusions, right larger than left, with associated bibasilar opacities. Electronically signed by: Sami Adan M.D. 03/09/2018 10:11 AM Dictated Date/Time: 03/09/2018 10:09 AM
--- NOTE | 2018-03-09 10:15 | DIAGNOSTIC IMAGING REPORT ---
MERE CLINICAL HISTORY: rule out fecal impaction COMPARISON STUDY: CT of the abdomen and pelvis March 04, 2018. FINDINGS: Right upper quadrant surgical drain is in place. Suspected endoscopic clip are noted. Bowel gas pattern is normal. There is a moderate amount stool within the rectum and mild amount stool within the colon. IMPRESSION: 1. No evidence for a bowel obstruction. 2. Moderate amount stool within the rectum and mild amount of stool within the colon. Electronically signed by: Sami Adan M.D. 03/09/2018 10:14 AM Dictated Date/Time: 03/09/2018 10:12 AM
--- NOTE | 2018-03-09 10:41 | Progress Note ---
Internal Med Progress Note Date of Service: Mar 09, 2018. Provider Documentation: Subjective: Patient is hard of hearing and without his hearing aids he has trouble sounding clearly with his speech. His son at bedside appears to understand what the patient is saying but the patient does not seem goal oriented when asked questions even speaking to him loudly and slowly with him. Physical exam General - not in acute distress, as above Head- atraumatic Neck- supple, no JVD Lungs- on room air, no wheezing, fair air entry on both sides of lung yee on posterior auscultation Heart- regular rhythm and rate Abdomen- abdominal dressing with BRIAN drain Extremities- no calf tenderness, no leg edema ASSESSMENT & PLAN: Anemia from blood loss from duodenal ulcer and perforated duodenal ulcer requiring surgery 87-year-old male who presents the ED from [facility] for evaluation of black stools On admission 02/27/18 was anemic with hemoglobin of 5.8 received 2 units of PRBC on 02/27/18 Had EGD performed on 02/28/18: One oozing duodenal ulcer with a visible vessel. Injected. Treated with bipolar cautery. Clips (MR conditional) were placed. received 1 unit of PRBC on 02/28/18, received 1 unit of PRBC on 03/01/18 received 2 units of PRBC on 03/05/18 CT abdomen/pelvis concerning for abdominal ascites On 03/05/18: A total of 2.7 L of clear brown ascites was aspirated On 03/05/18: was taken to the operating room for Diagnostic Laparoscopy; abdominal wash out; oversew duodenal ulcer with bob patch as a result of perforated duodenal ulcer General surgery continues to follow the patient as he still has BRIAN drain from 03/05/18 procedure Hemoglobin has been stable and abdominal pain appears controlled KUB on 03/09/18 is shows no acute pathology: 1. No evidence for a bowel obstruction. 2. Moderate amount stool within the rectum and mild amount of stool within the colon. Has been treated with antibiotics for peritonitis from ruptured duodenal ulcer ascites cultures as Klebsiella Pneumonia / ENTEROBACTER CLOACAE had been on Zosyn IV (03/04/18 to 03/07/18) Infectious disease consult recommended 2 weeks of narrow spectrum bacterial coverage with Unasyn vs Augmentin (currently on Unasyn started on 03/07/18) ascites culture also grew Dayna Albicans and Infectious disease consult also recommended Fluconazole (started on 03/07/18) Blood pressure stable Hydration and nutrition liquid diet as tolerated but patient generally poor appetite will start 75 cc/hr D5W 1/2 normal saline BILATERAL PLEURAL EFFUSIONS -large right sided pleural effusion with thoracentesis performed on 03/08/[address] Arriola and post procedure CXR shows decrease in right side effusions -follow up Chest X rays shows improvement of right effusion; there is mild left effusion present RIGHT-SIDED HEART FAILURE SEVERE AORTIC STENOSIS previous CXR showed developing congestive heart failure. had been on Lasix previously, but will hold off further Lasix as pleural effusion of the right side has been addressed on 03/08/18 likely will need Lasix to be resumed before hospital discharge CKD STAGE IV with acute kidney injury will start 75 cc/hr D5W 1/2 normal saline ELEVATED TROPONIN on admission Likely demand ischemia secondary to profound anemia CHRONIC ATRIAL FIBRILLATION Not on anticoagulant due to fall risks Lopressor 2.5 mg IV q6h prn for heart rate above 110 bpm with hold parameters for hypotension Poor hearing uses hearing aids PT/OT DVT PROPHYLAXIS SCDs CODE STATUS Palliative care have assessed the patient and code status was changed on 03/05/18 to DNR/DNI Patient's family members son and POA Salty [phone] son Aniceto Nagel [phone] son Wojciech [phone] son Don [phone] Vital Signs: Date Time Temp Pulse Resp B/P (MAP) Pulse Ox O2 Delivery O2 Flow Rate FiO2 03/09/18 06:54 36.7 99 100 108/67 (81) 100 Room Air 03/09/18 04:25 36.8 89 16 120/76 (91) 98 Room Air 03/08/18 23:39 36.7 102 16 101/63 (76) 95 Room Air 03/08/18 20:06 37.1 98 16 122/71 (88) 93 Room Air 03/08/18 20:00 Room Air 03/08/18 15:24 36.4 101 16 115/69 (84) 98 Room Air 03/08/18 11:41 36.8 95 18 110/68 (82) 90 Room Air Lab Results: Results Past 24 Hours Test 03/08/18 12:41 03/08/18 12:45 Range/Units Lactate Dehydrogenase 126 87-241 U/L Total Protein 6.3 6.4-8.2 gm/dl Albumin 2.5 3.4-5.0 gm/dl Pleural Fluid Source RIGHT LUNG Pleural Fluid Color MESSI Pleural Fluid Appearance CLOUDY Pleural Fluid WBC 3299 /uL Pleural Fluid RBC 83899 /uL Pleural Fluid Polynuclear WBCs % 88.7 % Pleural Fluid Mononuclear WBCs % 11.3 % Pleural Fluid Total Protein 2.6 g/dl Pleural Fluid LDH 137 IU Pleural Fluid Glucose 50 mg/dl Microbiology Results 03/08/18 Gram Stain - Final, Resulted 03/08/18 Bacterial Culture, Resulted Pending
[2018-03-09 10:59] VITALS: BP 113/67; PULSE 92; TEMP 36.3; O2SAT 92
[2018-03-09] MEDS: D5W AND 1/2NSS 1,000 ML IV SCH (11:51)
--- NOTE | 2018-03-09 13:07 | Surgery Progress Note ---
Surgery Progress Note Date of Service Mar 09, 2018. Subjective + feeling well stable , no abdominal pain, no nausea, no vomiting, BRIAN 295 ml/24 h Objective Vital Signs: Date Time Temp Pulse Resp B/P (MAP) Pulse Ox O2 Delivery O2 Flow Rate FiO2 03/09/18 10:59 36.3 92 100 113/67 (82) 92 Room Air 03/09/18 08:00 Room Air 03/09/18 06:54 36.7 99 100 108/67 (81) 100 Room Air 03/09/18 04:25 36.8 89 16 120/76 (91) 98 Room Air 03/08/18 23:39 36.7 102 16 101/63 (76) 95 Room Air 03/08/18 20:06 37.1 98 16 122/71 (88) 93 Room Air 03/08/18 20:00 Room Air 03/08/18 15:24 36.4 101 16 115/69 (84) 98 Room Air General Appearance: WD/WN, no apparent distress Head: normocephalic Neck: supple, no JVD Respiratory/Chest: chest non-tender, lungs clear Cardiovascular: regular rate, rhythm, no edema Abdomen: normal bowel sounds, non tender, non distended, soft Incision(s): clean, dry, intact Extremities: normal range of motion, non-tender, normal inspection Assessment & Plan POD #4 s/p Diagnostic Laparoscopy; abdominal wash out; oversew duodenal ulcer with bob patch stable Pain controlled. Abdomen soft w/ some distention and TTP. BRIAN serosang. full liquid diet dulcolax pr H&H stable. Continue IV Abx. No post-op surgical issues at this time. Will continue to monitor closely. Contact with questions or concerns. 03/09/2018 stable, doing better, continue treatment, will F/U POD #4 s/p Diagnostic Laparoscopy; abdominal wash out; oversew duodenal ulcer with bob patch stable Pain controlled. Abdomen soft w/ some distention and TTP. BRIAN serosang. full liquid diet dulcolax pr H&H stable. Continue IV Abx. No post-op surgical issues at this time. Will continue to monitor closely. Contact with questions or concerns.
[2018-03-09] MEDS: AMPICILLIN/SULBACTAM SOD INJ 3,000 MG in SODIUM CHLORIDE 0.9% 100ML 100 ML IV SCH (13:23)
[2018-03-09 15:49] VITALS: BP 116/72; PULSE 98; TEMP 36.3; O2SAT 98
[2018-03-09 19:49] VITALS: BP 112/73; PULSE 92; TEMP 36.3; O2SAT 94
[2018-03-09 23:45] VITALS: BP 121/65; PULSE 108; TEMP 36.4; O2SAT 96
[2018-03-10] MEDS: D5W AND 1/2NSS 1,000 ML IV SCH (00:03)
[2018-03-10] MEDS: AMPICILLIN/SULBACTAM SOD INJ 3,000 MG in SODIUM CHLORIDE 0.9% 100ML 100 ML IV SCH ×2 (00:54→13:50)
[2018-03-10 04:03] VITALS: BP 113/62; PULSE 107; TEMP 36.5; O2SAT 97
[2018-03-10 06:51] LABS: BASO % 0.1 %; BASO ABS # 0.01 K/uL (0-0.2); EOS % 0.5 %; EOS ABS # 0.05 K/uL (0-0.5); HEMATOCRIT 29.5 % (42-52); HEMOGLOBIN 9.8 g/dL (14.0-18.0); IG# 0.06 K/uL (0.00-0.02); LYMPH % 7.9 %; LYMPH ABS # 0.81 K/uL (1.2-3.4); MEAN CELL VOLUME 89.7 fL (80-100); MEAN CORPUSCULAR HEMOGLOBIN 29.8 pg (25-34); MEAN CORPUSCULAR HGB CONC 33.2 g/dl (32-36); MEAN PLATELET VOLUME 9.7 fL (7.4-10.4); MONO % 0.6 %; MONO ABS # 0.06 K/uL (0.11-0.59); NEUT % 90.3 %; PLATELET COUNT 236 K/uL (130-400); RED CELL DISTRIBUTION WIDTH CV 16.6 % (11.5-14.5); RED CELL DISTRIBUTION WIDTH SD 52.1 fL (36.4-46.3); WHITE BLOOD COUNT 10.19 K/uL (4.8-10.8)
[2018-03-10 07:08] VITALS: BP 108/65; PULSE 94; TEMP 36.4; O2SAT 98
[2018-03-10 07:46] LABS: ALBUMIN 2.1 gm/dl (3.4-5.0); CALCIUM 8.5 mg/dl (8.5-10.1); CREATININE 2.73 mg/dl (0.60-1.40); POTASSIUM 2.4 mmol/L (3.5-5.1); TOTAL PROTEIN 5.9 gm/dl (6.4-8.2)
[2018-03-10] MEDS: ALLOPURINOL 300 MG TAB PO SCH (07:58)
[2018-03-10] MEDS ORDERED: POTASSIUM CHLORIDE 20 MEQ TABCR PO STA (07:58)
[2018-03-10] MEDS: POLYETHYLENE (MIRALAX) 17 GM PACK PO SCH (07:58)
[2018-03-10] MEDS: PANTOprazole INJ 40 MG in SYRINGE 0 ML IV SCH ×2 (07:59→21:12)
[2018-03-10] MEDS: FLUCONAZOLE 100 MG TAB PO SCH (07:59)
[2018-03-10] MEDS: POTASSIUM CHLR 10 MEQ / WTR 100 ML IV SCH ×4 (08:32→12:33)
--- NOTE | 2018-03-10 09:04 | Surgery Progress Note ---
Surgery Progress Note Date of Service Mar 10, 2018. Subjective Post OP Day: 6 + diet (full liquids), No complaints, No bowel movement Objective Vital Signs: Date Time Temp Pulse Resp B/P (MAP) Pulse Ox O2 Delivery O2 Flow Rate FiO2 03/10/18 07:08 36.4 94 16 108/65 (79) 98 Room Air 03/10/18 04:03 36.5 107 18 113/62 (79) 97 Room Air 03/09/18 23:45 36.4 108 18 121/65 (83) 96 Room Air 03/09/18 20:00 Room Air 03/09/18 19:49 36.3 92 18 112/73 (86) 94 Room Air 03/09/18 15:49 36.3 98 20 116/72 (87) 98 Room Air 03/09/18 10:59 36.3 92 100 113/67 (82) 92 Room Air Physical Exam: BRIAN drainage (180/60) Abdomen: soft, + distended (minimal) Laboratory Results: Results Past 24 Hours Test 03/10/18 06:24 Range/Units White Blood Count 10.19 4.8-10.8 K/uL Red Blood Count 3.29 4.7-6.1 M/uL Hemoglobin 9.8 14.0-18.0 g/dL Hematocrit 29.5 42-52 % Mean Corpuscular Volume 89.7 80-100 fL Mean Corpuscular Hemoglobin 29.8 25-34 pg Mean Corpuscular Hemoglobin Concent 33.2 32-36 g/dl Platelet Count 236 130-400 K/uL Mean Platelet Volume 9.7 7.4-10.4 fL Neutrophils (%) (Auto) 90.3 % Lymphocytes (%) (Auto) 7.9 % Monocytes (%) (Auto) 0.6 % Eosinophils (%) (Auto) 0.5 % Basophils (%) (Auto) 0.1 % Neutrophils # (Auto) 9.20 1.4-6.5 K/uL Lymphocytes # (Auto) 0.81 1.2-3.4 K/uL Monocytes # (Auto) 0.06 0.11-0.59 K/uL Eosinophils # (Auto) 0.05 0-0.5 K/uL Basophils # (Auto) 0.01 0-0.2 K/uL RDW Standard Deviation 52.1 36.4-46.3 fL RDW Coefficient of Variation 16.6 11.5-14.5 % Immature Granulocyte % (Auto) 0.6 % Immature Granulocyte # (Auto) 0.06 0.00-0.02 K/uL Sodium Level 138 136-145 mmol/L Potassium Level 2.4 3.5-5.1 mmol/L Chloride Level 105 98-107 mmol/L Carbon Dioxide Level 21 21-32 mmol/L Anion Gap 14.0 3-11 mmol/L Blood Urea Nitrogen 57 7-18 mg/dl Creatinine 2.73 0.60-1.40 mg/dl Est Creatinine Clear Calc Drug Dose 16.7 ml/min Estimated GFR () 22.9 Estimated GFR (Non- 19.7 BUN/Creatinine Ratio 20.8 10-20 Random Glucose 147 70-99 mg/dl Calcium Level 8.5 8.5-10.1 mg/dl Magnesium Level 2.0 1.8-2.4 mg/dl Total Bilirubin 1.1 0.2-1 mg/dl Aspartate Amino Transf (AST/SGOT) 7 15-37 U/L Alanine Aminotransferase (ALT/SGPT) 7 12-78 U/L Alkaline Phosphatase 195 45-117 U/L Total Protein 5.9 6.4-8.2 gm/dl Albumin 2.1 3.4-5.0 gm/dl Globulin 3.8 2.5-4.0 gm/dl Albumin/Globulin Ratio 0.6 0.9-2 Assessment & Plan s/p Diagnostic Laparoscopy; abdominal wash out; oversew duodenal ulcer with bob patch no new issues advance diet continue drain PT/OT
[2018-03-10] MEDS ORDERED: SODIUM CHLORIDE 0.9% 500ML 500 ML IV ONE (09:30)
--- NOTE | 2018-03-10 10:23 | Progress Note ---
Internal Med Progress Note Date of Service: Mar 10, 2018. Provider Documentation: Subjective: Patient reports abdominal pain when palpation of abdomen. He does not report other symptoms. He had low serum potassium. While receiving IV potassium riders , patient's nurse reported a low blood pressure reading of 70/48 received IV fluids and subsequent readings improved. He continues to be maintaining blood pressure. Nurse asked to continue giving IV potassium and continue to monitor blood pressure, Nurse reports patient with minimal bowel movements but is passing gas. Yesterday the KUB did not show new bowel pathologies Physical exam General - not in acute distress, as above Head- atraumatic Neck- supple, no JVD Lungs- on room air, no wheezing, fair air entry on both sides of lung yee on posterior auscultation Heart- regular rhythm and rate Abdomen- abdominal dressing with BRIAN drain, tender to palpation Extremities- no calf tenderness, no leg edema ASSESSMENT & PLAN: Anemia from blood loss from duodenal ulcer and perforated duodenal ulcer requiring surgery 87-year-old male who presents the ED from [facility] for evaluation of black stools On admission 02/27/18 was anemic with hemoglobin of 5.8 received 2 units of PRBC on 02/27/18 Had EGD performed on 02/28/18: One oozing duodenal ulcer with a visible vessel. Injected. Treated with bipolar cautery. Clips (MR conditional) were placed. received 1 unit of PRBC on 02/28/18, received 1 unit of PRBC on 03/01/18 received 2 units of PRBC on 03/05/18 CT abdomen/pelvis concerning for abdominal ascites On 03/05/18: A total of 2.7 L of clear brown ascites was aspirated On 03/05/18: was taken to the operating room for Diagnostic Laparoscopy; abdominal wash out; oversew duodenal ulcer with bob patch as a result of perforated duodenal ulcer General surgery continues to follow the patient as he still has BRIAN drain from 03/05/18 procedure Hemoglobin has been stable and abdominal pain appears controlled KUB on 03/09/18 is shows no acute pathology: 1. No evidence for a bowel obstruction. 2. Moderate amount stool within the rectum and mild amount of stool within the colon. Has been treated with antibiotics for peritonitis from ruptured duodenal ulcer ascites cultures as Klebsiella Pneumonia / ENTEROBACTER CLOACAE had been on Zosyn IV (03/04/18 to 03/07/18) Infectious disease consult recommended 2 weeks of narrow spectrum bacterial coverage with Unasyn vs Augmentin (currently on Unasyn started on 03/07/18) ascites culture also grew Dayna Albicans and Infectious disease consult also recommended Fluconazole (started on 03/07/18) Blood pressure improved after IV fluids continue to monitor for hypotension Hydration and nutrition liquid diet as tolerated BILATERAL PLEURAL EFFUSIONS -large right sided pleural effusion with thoracentesis performed on 03/08/[address] Arriola and post procedure CXR shows decrease in right side effusions -follow up Chest X rays shows improvement of right effusion; there is mild left effusion present RIGHT-SIDED HEART FAILURE SEVERE AORTIC STENOSIS previous CXR showed developing congestive heart failure. had been on Lasix previously, but will hold off further Lasix as pleural effusion of the right side has been addressed on 03/08/18 likely will need Lasix to be resumed before hospital discharge CKD STAGE IV with acute kidney injury monitor and give IV fluids intermittently if not drinking enough oral fluids Hypokalemia serum potassium 2.4 on 03/10/18; IV potassium and oral potassium supplements being given, will repeat serum potassium levels CHRONIC ATRIAL FIBRILLATION Not on anticoagulant due to fall risks Lopressor 2.5 mg IV q6h prn for heart rate above 110 bpm with hold parameters for hypotension ELEVATED TROPONIN on admission Likely demand ischemia secondary to profound anemia Constipation Miralax daily, add additional bowel regimens as needed Poor hearing uses hearing aids PT/OT DVT PROPHYLAXIS SCDs CODE STATUS Palliative care have assessed the patient and code status was changed on 03/05/18 to DNR/DNI Patient's family members son and POA Salty [phone] son Aniceto Nagel [phone] son Wojciech [phone] son Don [phone] Vital Signs: Date Time Temp Pulse Resp B/P (MAP) Pulse Ox O2 Delivery O2 Flow Rate FiO2 03/10/18 07:08 36.4 94 16 108/65 (79) 98 Room Air 03/10/18 04:03 36.5 107 18 113/62 (79) 97 Room Air 03/09/18 23:45 36.4 108 18 121/65 (83) 96 Room Air 03/09/18 20:00 Room Air 03/09/18 19:49 36.3 92 18 112/73 (86) 94 Room Air 03/09/18 15:49 36.3 98 20 116/72 (87) 98 Room Air 03/09/18 10:59 36.3 92 100 113/67 (82) 92 Room Air Lab Results: Results Past 24 Hours Test 03/10/18 06:24 Range/Units White Blood Count 10.19 4.8-10.8 K/uL Red Blood Count 3.29 4.7-6.1 M/uL Hemoglobin 9.8 14.0-18.0 g/dL Hematocrit 29.5 42-52 % Mean Corpuscular Volume 89.7 80-100 fL Mean Corpuscular Hemoglobin 29.8 25-34 pg Mean Corpuscular Hemoglobin Concent 33.2 32-36 g/dl Platelet Count 236 130-400 K/uL Mean Platelet Volume 9.7 7.4-10.4 fL Neutrophils (%) (Auto) 90.3 % Lymphocytes (%) (Auto) 7.9 % Monocytes (%) (Auto) 0.6 % Eosinophils (%) (Auto) 0.5 % Basophils (%) (Auto) 0.1 % Neutrophils # (Auto) 9.20 1.4-6.5 K/uL Lymphocytes # (Auto) 0.81 1.2-3.4 K/uL Monocytes # (Auto) 0.06 0.11-0.59 K/uL Eosinophils # (Auto) 0.05 0-0.5 K/uL Basophils # (Auto) 0.01 0-0.2 K/uL RDW Standard Deviation 52.1 36.4-46.3 fL RDW Coefficient of Variation 16.6 11.5-14.5 % Immature Granulocyte % (Auto) 0.6 % Immature Granulocyte # (Auto) 0.06 0.00-0.02 K/uL Sodium Level 138 136-145 mmol/L Potassium Level 2.4 3.5-5.1 mmol/L Chloride Level 105 98-107 mmol/L Carbon Dioxide Level 21 21-32 mmol/L Anion Gap 14.0 3-11 mmol/L Blood Urea Nitrogen 57 7-18 mg/dl Creatinine 2.73 0.60-1.40 mg/dl Est Creatinine Clear Calc Drug Dose 16.7 ml/min Estimated GFR () 22.9 Estimated GFR (Non- 19.7 BUN/Creatinine Ratio 20.8 10-20 Random Glucose 147 70-99 mg/dl Calcium Level 8.5 8.5-10.1 mg/dl Magnesium Level 2.0 1.8-2.4 mg/dl Total Bilirubin 1.1 0.2-1 mg/dl Aspartate Amino Transf (AST/SGOT) 7 15-37 U/L Alanine Aminotransferase (ALT/SGPT) 7 12-78 U/L Alkaline Phosphatase 195 45-117 U/L Total Protein 5.9 6.4-8.2 gm/dl Albumin 2.1 3.4-5.0 gm/dl Globulin 3.8 2.5-4.0 gm/dl Albumin/Globulin Ratio 0.6 0.9-2
[2018-03-10 11:35] VITALS: BP 108/68; PULSE 86; TEMP 36.9; O2SAT 98
[2018-03-10 15:57] VITALS: BP 133/73; PULSE 96; TEMP 36.5; O2SAT 97
[2018-03-10] MEDS: D5W AND 1/2NSS + 20MEQ KCL 1,000 ML IV SCH (18:03)
[2018-03-10 19:32] VITALS: BP 124/62; PULSE 107; TEMP 36.6; O2SAT 99
[2018-03-10 23:29] VITALS: BP 116/74; PULSE 99; TEMP 36.7; O2SAT 97
[2018-03-11] MEDS: AMPICILLIN/SULBACTAM SOD INJ 3,000 MG in SODIUM CHLORIDE 0.9% 100ML 100 ML IV SCH ×2 (00:42→12:25)
[2018-03-11 03:20] VITALS: BP 120/73; PULSE 91; TEMP 36.5; O2SAT 99
[2018-03-11 07:39] VITALS: BP 109/68; PULSE 86; TEMP 36.5; O2SAT 98
[2018-03-11] MEDS: FLUCONAZOLE 100 MG TAB PO SCH (07:39)
[2018-03-11] MEDS: ALLOPURINOL 300 MG TAB PO SCH (07:39)
[2018-03-11] MEDS: POLYETHYLENE (MIRALAX) 17 GM PACK PO SCH (07:39)
[2018-03-11] MEDS: D5W AND 1/2NSS + 20MEQ KCL 1,000 ML IV SCH ×2 (07:39→20:07)
[2018-03-11] MEDS: PANTOprazole INJ 40 MG in SYRINGE 0 ML IV SCH ×2 (07:54→20:07)
[2018-03-11 08:55] LABS: BASO % 0.1 %; BASO ABS # 0.01 K/uL (0-0.2); EOS % 0.6 %; EOS ABS # 0.06 K/uL (0-0.5); IG# 0.07 K/uL (0.00-0.02); LYMPH % 3.1 %; LYMPH ABS # 0.33 K/uL (1.2-3.4); MEAN CELL VOLUME 89.8 fL (80-100); MEAN CORPUSCULAR HEMOGLOBIN 29.9 pg (25-34); MEAN CORPUSCULAR HGB CONC 33.3 g/dl (32-36); MONO % 4.9 %; MONO ABS # 0.51 K/uL (0.11-0.59); NEUT % 90.6 %; NEUT ABS # 9.53 K/uL (1.4-6.5); PLATELET COUNT 241 K/uL (130-400); RED CELL DISTRIBUTION WIDTH CV 16.5 % (11.5-14.5); RED CELL DISTRIBUTION WIDTH SD 51.7 fL (36.4-46.3); WHITE BLOOD COUNT 10.51 K/uL (4.8-10.8)
[2018-03-11 08:58] LABS: ALBUMIN 2.1 gm/dl (3.4-5.0); CALCIUM 8.6 mg/dl (8.5-10.1); CREATININE 2.45 mg/dl (0.60-1.40); PHOSPHORUS 2.2 mg/dl (2.5-4.9); POTASSIUM 3.3 mmol/L (3.5-5.1)
--- NOTE | 2018-03-11 10:59 | Surgery Progress Note ---
Surgery Progress Note Date of Service Mar 11, 2018. Subjective Post OP Day: 7 + bowel movement, + diet (soft), No complaints Objective Vital Signs: Date Time Temp Pulse Resp B/P (MAP) Pulse Ox O2 Delivery O2 Flow Rate FiO2 03/11/18 07:39 36.5 86 18 109/68 (82) 98 Room Air 03/11/18 03:20 36.5 91 16 120/73 (89) 99 Room Air 03/10/18 23:29 36.7 99 14 116/74 (88) 97 Room Air 03/10/18 20:00 Room Air 03/10/18 19:32 36.6 107 15 124/62 (82) 99 Room Air 03/10/18 16:00 Room Air 03/10/18 15:57 36.5 96 17 133/73 (93) 97 Room Air 03/10/18 11:35 36.9 86 20 108/68 (81) 98 Physical Exam: BRIAN drainage (60 serous) Abdomen: non distended, soft Laboratory Results: Results Past 24 Hours Test 03/10/18 15:29 03/11/18 08:20 Range/Units Potassium Level 3.1 3.3 3.5-5.1 mmol/L White Blood Count 10.51 4.8-10.8 K/uL Red Blood Count 3.34 4.7-6.1 M/uL Hemoglobin 10.0 14.0-18.0 g/dL Hematocrit 30.0 42-52 % Mean Corpuscular Volume 89.8 80-100 fL Mean Corpuscular Hemoglobin 29.9 25-34 pg Mean Corpuscular Hemoglobin Concent 33.3 32-36 g/dl Platelet Count 241 130-400 K/uL Mean Platelet Volume 10.0 7.4-10.4 fL Neutrophils (%) (Auto) 90.6 % Lymphocytes (%) (Auto) 3.1 % Monocytes (%) (Auto) 4.9 % Eosinophils (%) (Auto) 0.6 % Basophils (%) (Auto) 0.1 % Neutrophils # (Auto) 9.53 1.4-6.5 K/uL Lymphocytes # (Auto) 0.33 1.2-3.4 K/uL Monocytes # (Auto) 0.51 0.11-0.59 K/uL Eosinophils # (Auto) 0.06 0-0.5 K/uL Basophils # (Auto) 0.01 0-0.2 K/uL RDW Standard Deviation 51.7 36.4-46.3 fL RDW Coefficient of Variation 16.5 11.5-14.5 % Immature Granulocyte % (Auto) 0.7 % Immature Granulocyte # (Auto) 0.07 0.00-0.02 K/uL Sodium Level 139 136-145 mmol/L Chloride Level 108 98-107 mmol/L Carbon Dioxide Level 21 21-32 mmol/L Anion Gap 11.0 3-11 mmol/L Blood Urea Nitrogen 49 7-18 mg/dl Creatinine 2.45 0.60-1.40 mg/dl Est Creatinine Clear Calc Drug Dose 18.6 ml/min Estimated GFR () 26.1 Estimated GFR (Non- 22.5 BUN/Creatinine Ratio 20.2 10-20 Random Glucose 127 70-99 mg/dl Calcium Level 8.6 8.5-10.1 mg/dl Phosphorus Level 2.2 2.5-4.9 mg/dl Albumin 2.1 3.4-5.0 gm/dl Assessment & Plan s/p Diagnostic Laparoscopy; abdominal wash out; oversew duodenal ulcer with bob patch stable ok to remove drain tolerating diet d/c planning
[2018-03-11 11:46] VITALS: BP 111/68; PULSE 92; TEMP 36.4; O2SAT 98
[2018-03-11 16:47] VITALS: BP 135/76; PULSE 95; TEMP 36.5; O2SAT 98
--- NOTE | 2018-03-11 16:57 | Progress Note ---
Subjective Date of Service: Mar 11, 2018. Subjective Pt evaluation today including: conversation w/ patient, conversation w/ family , physical exam, lab review, review of studies, review of inpatient medication list Saw/examined the patient in room 231 The son, Don, is in the room with the patient; states that he's doing okay Still not good with his appetite Problem List Medical Problems: (1) Bullous pemphigoid Status: Acute (2) Chronic anemia Status: Chronic (3) Chronic atrial fibrillation Status: Chronic (4) CKD (chronic kidney disease), stage IV Status: Chronic (5) Duodenal ulcer Status: Acute (6) Failure to thrive Status: Acute (7) GI bleed Status: Acute (8) Hematuria Status: Acute (9) Impaired mobility and ADLs Status: Acute (10) Laceration of left upper arm Status: Acute (11) Multiple skin tears Status: Acute (12) Perforated abdominal viscus Status: Acute (13) Pulmonary hypertension Status: Chronic (14) Right-sided heart failure Status: Chronic (15) Severe aortic stenosis Status: Chronic Surgical Problems: (1) S/P laparoscopy Status: Acute Medications Current Inpatient Medications Medications (Trade) Dose Ordered Sig/Jewel Route Start Time Stop Time Status Last Admin Dose Admin Acetaminophen (Tylenol Tab) 650 mg Q4H PRN PO 02/27/18 15:45 03/29/18 15:44 03/03/18 16:12 650 MG Ondansetron HCl (Zofran Inj) 4 mg Q6H PRN IV 02/27/18 15:45 03/29/18 15:44 Allopurinol (Zyloprim Tab) 300 mg DAILY PO 02/28/18 09:00 03/30/18 08:59 03/11/18 07:39 300 MG Tramadol HCl (Ultram Tab) 50 mg Q6 PRN PO 03/03/18 18:30 04/02/18 18:29 03/07/18 04:40 50 MG Hydromorphone HCl (Dilaudid Inj) 0.25 mg Q3H PRN IV 03/03/18 20:00 03/17/18 19:59 03/08/18 00:57 0.25 MG Prochlorperazine Edisylate 5 mg/ Syringe 5 ml @ 5 mls/min Q6H PRN IV 03/03/18 20:00 04/02/18 19:59 Pantoprazole Sodium 40 mg/ Syringe 10 ml @ 5 mls/min BID IV 03/04/18 09:00 04/03/18 08:59 03/11/18 07:54 5 MLS/MIN Metoprolol Tartrate (Lopressor Iv) 2.5 mg Q6H PRN IV 03/05/18 17:45 04/04/18 17:44 03/06/18 22:46 2.5 MG Fluconazole (Diflucan Tab) 100 mg QAM PO 03/08/18 09:00 03/18/18 08:59 03/11/18 07:39 100 MG Ampicillin Sodium/ Sulbactam Sodium 3000 mg/Sodium Chloride 108 ml @ 200 mls/hr Q12H IV 03/07/18 13:00 03/17/18 12:59 03/11/18 00:42 200 MLS/HR Ampicillin Sodium/ Sulbactam Sodium (Consult) 1 ea UD PRN N/A 03/07/18 12:30 04/06/18 12:29 Polyethylene (Miralax Powder Packet) 17 gm DAILY PO 03/10/18 09:00 04/09/18 08:59 03/11/18 07:39 17 GM Potassium Chloride/Dextrose/ Sod Cl 1,000 ml @ 75 mls/hr [id number] IV 03/10/18 17:00 04/09/18 16:59 03/11/18 07:39 75 MLS/HR Objective Vital Signs Date Time Temp Pulse Resp B/P (MAP) Pulse Ox O2 Delivery O2 Flow Rate FiO2 03/11/18 07:39 36.5 86 18 109/68 (82) 98 Room Air 03/11/18 03:20 36.5 91 16 120/73 (89) 99 Room Air 03/10/18 23:29 36.7 99 14 116/74 (88) 97 Room Air 03/10/18 20:00 Room Air 03/10/18 19:32 36.6 107 15 124/62 (82) 99 Room Air 03/10/18 16:00 Room Air 03/10/18 15:57 36.5 96 17 133/73 (93) 97 Room Air 03/10/18 11:35 36.9 86 20 108/68 (81) 98 Physical Exam General Appearance: no apparent distress, + thin, + pertinent finding ( lethargic, somnolent) Respiratory/Chest: no respiratory distress, no accessory muscle use, + decreased breath sounds Cardiovascular: + irregularly irregular Extremities: + swelling, + pertinent finding Laboratory Results Last 24 Hours Test 03/10/18 15:29 03/11/18 08:20 Potassium Level 3.1 mmol/L 3.3 mmol/L White Blood Count 10.51 K/uL Red Blood Count 3.34 M/uL Hemoglobin 10.0 g/dL Hematocrit 30.0 % Mean Corpuscular Volume 89.8 fL Mean Corpuscular Hemoglobin 29.9 pg Mean Corpuscular Hemoglobin Concent 33.3 g/dl Platelet Count 241 K/uL Mean Platelet Volume 10.0 fL Neutrophils (%) (Auto) 90.6 % Lymphocytes (%) (Auto) 3.1 % Monocytes (%) (Auto) 4.9 % Eosinophils (%) (Auto) 0.6 % Basophils (%) (Auto) 0.1 % Neutrophils # (Auto) 9.53 K/uL Lymphocytes # (Auto) 0.33 K/uL Monocytes # (Auto) 0.51 K/uL Eosinophils # (Auto) 0.06 K/uL Basophils # (Auto) 0.01 K/uL RDW Standard Deviation 51.7 fL RDW Coefficient of Variation 16.5 % Immature Granulocyte % (Auto) 0.7 % Immature Granulocyte # (Auto) 0.07 K/uL Sodium Level 139 mmol/L Chloride Level 108 mmol/L Carbon Dioxide Level 21 mmol/L Anion Gap 11.0 mmol/L Blood Urea Nitrogen 49 mg/dl Creatinine 2.45 mg/dl Est Creatinine Clear Calc Drug Dose 18.6 ml/min Estimated GFR () 26.1 Estimated GFR (Non- 22.5 BUN/Creatinine Ratio 20.2 Random Glucose 127 mg/dl Calcium Level 8.6 mg/dl Phosphorus Level 2.2 mg/dl Albumin 2.1 gm/dl Assessment and Plan This is an 87 year old male with a past medical history of chronic atrial fibrillation, chronic R sided heart failure, CKD stage 4, chronic venous stasis ulceration, chronic anemia, HLD - presents with black stools and a GI bleed Acute Blood Loss Anemia Perforated Duodenal Ulcer Acute Peritonitis - black stools on admission - s/p EGD, s/p surgical laparoscopy - appreciate GI and general surgery input - patient has received 6 units of pRBCs during this admission - will continue Unasyn for the perforated ulcer; will transition to Augmentin prior to discharge - continue Fluconazole - BRIAN drain can be removed - plan to d/c to SNF in 1-2 days - continue to work on improved diet Pleural Effusion in the setting of R Heart Failure Severe Aortic Stenosis - large R pleural effusion - s/p thoracentesis on 03/08 - currently stable Acute Kidney Injury superimposed on CKD stage IV - creatinine up to 2.4, monitor and avoid nephrotoxic agents when able - encouraged PO intake, intermittent IV fluids, monitor for overload Hypokalemia - continue to supplement - will recheck K, Mg and Phos in AM (03/12) Chronic Atrial Fibrillation - control HR - no anticoagulation secondary to above Demand Ischemic - elevated troponin - monitor H/H DVT ppx - SCDs DNR/DNI Continued [facility] stay due to: multiple IV medications needed (patient on inotropic support) Discharge planning: nursing home facility (with or without hospice based on family discussion), uncertain
[2018-03-11] MEDS: POTASSIUM CHLR 10 MEQ / WTR 100 ML IV SCH ×2 (18:04→20:06)
[2018-03-11 19:30] VITALS: BP 133/75; PULSE 116; TEMP 36.3; O2SAT 98
[2018-03-11 23:35] VITALS: BP 127/76; PULSE 111; TEMP 36.5; O2SAT 98
[2018-03-12] MEDS: AMPICILLIN/SULBACTAM SOD INJ 3,000 MG in SODIUM CHLORIDE 0.9% 100ML 100 ML IV SCH ×2 (00:39→12:13)
[2018-03-12 03:24] VITALS: BP 121/74; PULSE 101; TEMP 36.6; O2SAT 97
[2018-03-12 06:12] LABS: HEMATOCRIT 27.8 % (42-52); HEMOGLOBIN 9.2 g/dL (14.0-18.0); MEAN CELL VOLUME 88.8 fL (80-100); MEAN CORPUSCULAR HEMOGLOBIN 29.4 pg (25-34); MEAN CORPUSCULAR HGB CONC 33.1 g/dl (32-36); MEAN PLATELET VOLUME 9.5 fL (7.4-10.4); PLATELET COUNT 239 K/uL (130-400); RED CELL DISTRIBUTION WIDTH CV 16.6 % (11.5-14.5); RED CELL DISTRIBUTION WIDTH SD 52.7 fL (36.4-46.3); WHITE BLOOD COUNT 11.59 K/uL (4.8-10.8)
[2018-03-12 06:40] LABS: CALCIUM 8.4 mg/dl (8.5-10.1); CREATININE 2.23 mg/dl (0.60-1.40); PHOSPHORUS 2.2 mg/dl (2.5-4.9); POTASSIUM 3.7 mmol/L (3.5-5.1)
[2018-03-12 07:07] VITALS: BP 136/87; PULSE 102; TEMP 36.8; O2SAT 99
[2018-03-12] MEDS ORDERED: POTASSIUM PHOS 3 MMOL/1 ML INFUSION IV STA (07:26)
--- NOTE | 2018-03-12 07:40 | Surgery Progress Note ---
Surgery Progress Note Date of Service Mar 12, 2018. Subjective Post OP Day: 8 No complaints Objective Vital Signs: Date Time Temp Pulse Resp B/P (MAP) Pulse Ox O2 Delivery O2 Flow Rate FiO2 03/12/18 07:07 36.8 102 17 136/87 (103) 99 Room Air 03/12/18 03:24 36.6 101 19 121/74 (90) 97 Room Air 03/12/18 00:00 Room Air 03/11/18 23:35 36.5 111 16 127/76 (93) 98 Room Air 03/11/18 20:00 Room Air 03/11/18 19:30 36.3 116 20 133/75 (94) 98 Room Air 03/11/18 16:47 36.5 95 16 135/76 (95) 98 Room Air 03/11/18 11:46 36.4 92 18 111/68 (82) 98 Room Air 03/11/18 08:00 Room Air 03/11/18 07:39 36.5 86 18 109/68 (82) 98 Room Air Abdomen: non distended, soft Laboratory Results: Results Past 24 Hours Test 03/11/18 08:20 03/12/18 05:34 Range/Units White Blood Count 10.51 11.59 4.8-10.8 K/uL Red Blood Count 3.34 3.13 4.7-6.1 M/uL Hemoglobin 10.0 9.2 14.0-18.0 g/dL Hematocrit 30.0 27.8 42-52 % Mean Corpuscular Volume 89.8 88.8 80-100 fL Mean Corpuscular Hemoglobin 29.9 29.4 25-34 pg Mean Corpuscular Hemoglobin Concent 33.3 33.1 32-36 g/dl Platelet Count 241 239 130-400 K/uL Mean Platelet Volume 10.0 9.5 7.4-10.4 fL Neutrophils (%) (Auto) 90.6 % Lymphocytes (%) (Auto) 3.1 % Monocytes (%) (Auto) 4.9 % Eosinophils (%) (Auto) 0.6 % Basophils (%) (Auto) 0.1 % Neutrophils # (Auto) 9.53 1.4-6.5 K/uL Lymphocytes # (Auto) 0.33 1.2-3.4 K/uL Monocytes # (Auto) 0.51 0.11-0.59 K/uL Eosinophils # (Auto) 0.06 0-0.5 K/uL Basophils # (Auto) 0.01 0-0.2 K/uL RDW Standard Deviation 51.7 52.7 36.4-46.3 fL RDW Coefficient of Variation 16.5 16.6 11.5-14.5 % Immature Granulocyte % (Auto) 0.7 % Immature Granulocyte # (Auto) 0.07 0.00-0.02 K/uL Sodium Level 139 141 136-145 mmol/L Potassium Level 3.3 3.7 3.5-5.1 mmol/L Chloride Level 108 110 98-107 mmol/L Carbon Dioxide Level 21 21 21-32 mmol/L Anion Gap 11.0 10.0 3-11 mmol/L Blood Urea Nitrogen 49 44 7-18 mg/dl Creatinine 2.45 2.23 0.60-1.40 mg/dl Est Creatinine Clear Calc Drug Dose 18.6 20.4 ml/min Estimated GFR () 26.1 29.2 Estimated GFR (Non- 22.5 25.2 BUN/Creatinine Ratio 20.2 19.6 10-20 Random Glucose 127 122 70-99 mg/dl Calcium Level 8.6 8.4 8.5-10.1 mg/dl Phosphorus Level 2.2 2.2 2.5-4.9 mg/dl Albumin 2.1 3.4-5.0 gm/dl Magnesium Level 1.9 1.8-2.4 mg/dl Assessment & Plan s/p Diagnostic Laparoscopy; abdominal wash out; oversew duodenal ulcer with bob patch tolerating diet but limited intake, add Boost d/c planning
[2018-03-12] MEDS ORDERED: POTASSIUM PHOSPHATE INJ 15 MMOL in SODIUM CHLORIDE 0.9% 250ML 250 ML IV ONE (07:45)
[2018-03-12] MEDS: PANTOprazole INJ 40 MG in SYRINGE 0 ML IV SCH (07:49)
[2018-03-12] MEDS: POLYETHYLENE (MIRALAX) 17 GM PACK PO SCH (07:49)
[2018-03-12] MEDS: ALLOPURINOL 300 MG TAB PO SCH (07:49)
[2018-03-12] MEDS: FLUCONAZOLE 100 MG TAB PO SCH (07:49)
[2018-03-12] MEDS: BOOST BREEZE NUTRITION DRINK 1 BOX PO SCH ×2 (09:42→18:00)
[2018-03-12 12:18] VITALS: BP 139/84; PULSE 84; TEMP 37; O2SAT 100
--- NOTE | 2018-03-12 14:32 | Progress Note ---
Subjective Date of Service: Mar 12, 2018. Subjective Pt evaluation today including: conversation w/ patient, physical exam, lab review, review of studies, review of inpatient medication list Saw/examined the patient in room 231 He's somewhat confused Son is at bedside with the patient; states he's doing better in terms of his PO intake BRIAN drain to be removed as per surgery Problem List Medical Problems: (1) Bullous pemphigoid Status: Acute (2) Chronic anemia Status: Chronic (3) Chronic atrial fibrillation Status: Chronic (4) CKD (chronic kidney disease), stage IV Status: Chronic (5) Duodenal ulcer Status: Acute (6) Failure to thrive Status: Acute (7) GI bleed Status: Acute (8) Hematuria Status: Acute (9) Impaired mobility and ADLs Status: Acute (10) Laceration of left upper arm Status: Acute (11) Multiple skin tears Status: Acute (12) Perforated abdominal viscus Status: Acute (13) Pulmonary hypertension Status: Chronic (14) Right-sided heart failure Status: Chronic (15) Severe aortic stenosis Status: Chronic Surgical Problems: (1) S/P laparoscopy Status: Acute Medications Current Inpatient Medications Medications (Trade) Dose Ordered Sig/Jewel Route Start Time Stop Time Status Last Admin Dose Admin Acetaminophen (Tylenol Tab) 650 mg Q4H PRN PO 02/27/18 15:45 03/29/18 15:44 03/03/18 16:12 650 MG Ondansetron HCl (Zofran Inj) 4 mg Q6H PRN IV 02/27/18 15:45 03/29/18 15:44 Allopurinol (Zyloprim Tab) 300 mg DAILY PO 02/28/18 09:00 03/30/18 08:59 03/12/18 07:49 300 MG Tramadol HCl (Ultram Tab) 50 mg Q6 PRN PO 03/03/18 18:30 04/02/18 18:29 03/07/18 04:40 50 MG Hydromorphone HCl (Dilaudid Inj) 0.25 mg Q3H PRN IV 03/03/18 20:00 03/17/18 19:59 03/08/18 00:57 0.25 MG Prochlorperazine Edisylate 5 mg/ Syringe 5 ml @ 5 mls/min Q6H PRN IV 03/03/18 20:00 04/02/18 19:59 Pantoprazole Sodium 40 mg/ Syringe 10 ml @ 5 mls/min BID IV 03/04/18 09:00 04/03/18 08:59 03/12/18 07:49 5 MLS/MIN Metoprolol Tartrate (Lopressor Iv) 2.5 mg Q6H PRN IV 03/05/18 17:45 04/04/18 17:44 03/06/18 22:46 2.5 MG Fluconazole (Diflucan Tab) 100 mg QAM PO 03/08/18 09:00 03/18/18 08:59 03/12/18 07:49 100 MG Ampicillin Sodium/ Sulbactam Sodium 3000 mg/Sodium Chloride 108 ml @ 200 mls/hr Q12H IV 03/07/18 13:00 03/17/18 12:59 03/12/18 12:13 200 MLS/HR Ampicillin Sodium/ Sulbactam Sodium (Consult) 1 ea UD PRN N/A 03/07/18 12:30 04/06/18 12:29 Polyethylene (Miralax Powder Packet) 17 gm DAILY PO 03/10/18 09:00 04/09/18 08:59 03/11/18 07:39 17 GM Potassium Chloride/Dextrose/ Sod Cl 1,000 ml @ 75 mls/hr [id number] IV 03/10/18 17:00 04/09/18 16:59 03/11/18 20:07 75 MLS/HR Enteral Nutritional Formula (Boost Breeze Nutritional Drink) 1 box BIDPC PO 03/12/18 09:00 04/11/18 08:59 Objective Vital Signs Date Time Temp Pulse Resp B/P (MAP) Pulse Ox O2 Delivery O2 Flow Rate FiO2 03/12/18 12:18 37.0 84 16 139/84 (102) 100 03/12/18 08:00 Room Air 03/12/18 07:07 36.8 102 17 136/87 (103) 99 Room Air 03/12/18 03:24 36.6 101 19 121/74 (90) 97 Room Air 03/12/18 00:00 Room Air 03/11/18 23:35 36.5 111 16 127/76 (93) 98 Room Air 03/11/18 20:00 Room Air 03/11/18 19:30 36.3 116 20 133/75 (94) 98 Room Air 03/11/18 16:47 36.5 95 16 135/76 (95) 98 Room Air Physical Exam General Appearance: no apparent distress, + thin, + pertinent finding ( underlying confusion) Respiratory/Chest: no respiratory distress, no accessory muscle use Cardiovascular: regular rate, rhythm Abdomen: normal bowel sounds, soft, + tenderness, + pertinent finding (+BRIAN drain) Neurologic/Psychiatric: alert, + disoriented Laboratory Results Last 24 Hours Test 03/12/18 05:34 White Blood Count 11.59 K/uL Red Blood Count 3.13 M/uL Hemoglobin 9.2 g/dL Hematocrit 27.8 % Mean Corpuscular Volume 88.8 fL Mean Corpuscular Hemoglobin 29.4 pg Mean Corpuscular Hemoglobin Concent 33.1 g/dl RDW Standard Deviation 52.7 fL RDW Coefficient of Variation 16.6 % Platelet Count 239 K/uL Mean Platelet Volume 9.5 fL Sodium Level 141 mmol/L Potassium Level 3.7 mmol/L Chloride Level 110 mmol/L Carbon Dioxide Level 21 mmol/L Anion Gap 10.0 mmol/L Blood Urea Nitrogen 44 mg/dl Creatinine 2.23 mg/dl Est Creatinine Clear Calc Drug Dose 20.4 ml/min Estimated GFR () 29.2 Estimated GFR (Non- 25.2 BUN/Creatinine Ratio 19.6 Random Glucose 122 mg/dl Calcium Level 8.4 mg/dl Phosphorus Level 2.2 mg/dl Magnesium Level 1.9 mg/dl Assessment and Plan This is an 87 year old male with a past medical history of chronic atrial fibrillation, chronic R sided heart failure, CKD stage 4, chronic venous stasis ulceration, chronic anemia, HLD - presents with black stools and a GI bleed Acute Blood Loss Anemia Perforated Duodenal Ulcer Acute Peritonitis 03/12 - BRIAN drain removed - transition to Augmentin on discharge - continue Fluconazole - d/c to [facility] today 03/11 - black stools on admission - s/p EGD, s/p surgical laparoscopy - appreciate GI and general surgery input - patient has received 6 units of pRBCs during this admission - will continue Unasyn for the perforated ulcer; will transition to Augmentin prior to discharge - continue Fluconazole - BRIAN drain can be removed - plan to d/c to SNF in 1-2 days - continue to work on improved diet Pleural Effusion in the setting of R Heart Failure Severe Aortic Stenosis - large R pleural effusion - s/p thoracentesis on 03/08 - currently stable Acute Kidney Injury superimposed on CKD stage IV - creatinine up to 2.4, monitor and avoid nephrotoxic agents when able - encouraged PO intake, intermittent IV fluids, monitor for overload Hypokalemia - continue to supplement - will recheck K, Mg and Phos in AM (03/12) Chronic Atrial Fibrillation - control HR - no anticoagulation secondary to above Demand Ischemic - elevated troponin - monitor H/H DVT ppx - SCDs DNR/DNI Continued [facility] stay due to: multiple IV medications needed (patient on inotropic support) Discharge planning: residential facility (with or without hospice based on family discussion), uncertain
[2018-03-12] MEDS ORDERED: AMOX875T PO (14:55)
[2018-03-12] MEDS ORDERED: DFL100 PO (14:55)
[2018-03-12] MEDS ORDERED: OMEP40CA41 PO (14:55)
--- NOTE | 2018-03-12 14:57 | Discharge Instructions ---
Discharge Instructions Date of Service Mar 12, 2018. Admission Reason for Admission: Gi Bleed Discharge Discharge Diagnosis / Problem: Perforated Ulcer Discharge Goals Goal(s): Decrease discomfort, Improve function, Diagnostic testing, Therapeutic intervention Activity Recommendations Activity Limitations: resume your previous activity . Instructions / Follow-Up Instructions / Follow-Up Please follow-up with primary care physician * To be on Augmentin until 03/21 * To be on Fluconazole until 03/21 * Prilosec increased to 40mg twice a day Current Hospital Diet Patient's current hospital diet: AHA Diet (Heart Healthy) Discharge Diet Recommended Diet: AHA Diet (Heart Healthy) Procedures Procedures Performed: Diagnostic Laparoscopy; abdominal wash out; oversew duodenal ulcer with bob patch Pending Studies Studies pending at discharge: no Medical Emergencies . Who to Call and When: Medical Emergencies: If at any time you feel your situation is an emergency, please call 911 immediately. . Non-Emergent Contact Non-Emergency issues call your: Primary Care Provider . . "Provider Documentation" section prepared by Mimi Irby. .
[2018-03-12 15:36] VITALS: BP 122/71; PULSE 84; TEMP 37; O2SAT 98
--- NOTE | 2018-03-12 15:41 | Discharge Summary ---
Discharge Summary Date of Service Mar 12, 2018. Discharge Summary Admission Date: Feb 27, 2018 at 16:14 Discharge Date: Mar 12, 2018 Discharge Disposition: senior care facility Principal Diagnosis: Acute Blood Loss Anemia Perforated Duodenal Ulcer Acute Peritonitis Pleural Effusion in the setting of R Heart Failure Severe Aortic Stenosis Acute Kidney Injury superimposed on CKD stage IV Hypokalemia Chronic Atrial Fibrillation Demand Ischemic Medication Reconciliation New Medications: Amoxicillin & Pot Clavulanate (Augmentin 875-125 mg) 1 Tab Tab 1 TAB PO BID for 9 Days, #18 TAB Fluconazole (Fluconazole) 100 Mg Tab 100 MG PO QAM for 9 Days, #9 TAB Changed Medications: Omeprazole (Prilosec) 40 Mg Cap 1 CAP PO BID for 30 Days, #60 CAP 3 Refills (Changed from: Omeprazole (Prilosec ) 20 Mg Capcr 20 Mg PO DAILY) Continued Medications: Acetaminophen (Apap) 325 Mg Tab 2 TABS PO Q6H PRN for Pain or Fever Allopurinol (Zyloprim) 300 Mg Tab 300 MG PO DAILY, TAB Aspirin (Aspirin) 81 Mg Tab 81 MG PO DAILY, TAB Betamethasone Dipropionate (To (Betamethasone Dipropionat) 0.05 % Oin 1 APPLN TOP BID PRN for Rash APPLY DIRECTED TO RASH ON LOWER LEGS UNTIL RESOLVED THEN WHEN FLARING Bisacodyl (Bisacodyl Laxative) 10 Mg Sup 1 SUPP RE Q6H PRN for Constipation Cholecalciferol (Vitamin D3) 1,000 Unit Tab 1000 INTER.UNIT PO DAILY, TAB Furosemide (Lasix) 40 Mg Tab 40 MG PO BID, TAB Metoprolol Tartrate (Lopressor) (Lopressor) 50 Mg Tab 50 MG PO BID, TAB Multiple Vitamins W/ Minerals (Ocuvite Lutein) 1 Cap Cap 1 CAP PO DAILY Potassium Chloride Microencaps (Potassium Chloride Er) 10 Meq Tab 10 MEQ PO BID, TAB Sodium Phosphates (Fleet Enema Six Pack) 1 Amy Amy 1 DOSE RE Q6H PRN for Constipation Admission Information HPI (per Admitting provider): 87-year-old male who presents the ED from [facility] for evaluation of black stools. Patient was seen in the ED yesterday from home for frequent falls and failure to thrive. Patient was discharged to [facility] at that time. History is somewhat limited from the patient due to his mental state and hard of hearing. Per the staff at [facility], around 1:00 this afternoon the patient had a large bowel movement that was black diarrhea. Patient reported indigestion and left upper quadrant pain at that time. Patient was then referred to the ER for further evaluation. At the time my exam, patient is mostly without complaint. He denies chest pain or shortness of breath. No lightheadedness, dizziness, diaphoresis, syncopal events. He denies abdominal pain and nausea. No other recent illnesses, fevers, chills. He denies any urinary symptoms. In the ED, patient was found to have a hemoglobin of 5.8 ( was 8.6 yesterday). He is hemodynamically stable. Rectal exam revealed black stool which was heme positive. Patient was given Protonix 40 mg IV and Pepcid 20 mg IV. Physical Exam (per Admitting): General Appearance: no apparent distress, + cachetic, + thin Head: normocephalic, + pertinent finding (Scattered bruising noted) Eyes: normal inspection, EOMI, sclerae normal ENT: + pertinent finding (Hard of hearing, mucous membranes dry) Neck: supple, no JVD, trachea midline Respiratory/Chest: no respiratory distress, + decreased breath sounds Cardiovascular: no edema, normal peripheral pulses, + bradycardia, + systolic murmur, + irregularly irregular Abdomen/GI: normal bowel sounds, non tender, soft, no organomegaly Extremities/Musculoskelatal: normal inspection, no calf tenderness, normal capillary refill Neurologic/Psych: no motor/sensory deficits, alert, + disoriented (To time) , + pertinent finding (Neuro and orientation exam somewhat limited secondary to patient's hard of hearing) Skin: + pertinent finding (Scattered ecchymosis and abrasions noted over body in various stages of healing; chronic venous changes noted to the bilateral lower extremities) Hospital Course This is an 87 year old male with a past medical history of chronic atrial fibrillation, chronic R sided heart failure, CKD stage 4, chronic venous stasis ulceration, chronic anemia, HLD - presents with black stools and a GI bleed Acute Blood Loss Anemia Perforated Duodenal Ulcer Acute Peritonitis 03/12 - BRIAN drain removed - transition to Augmentin on discharge - continue Fluconazole - d/c to [facility] today 03/11 - black stools on admission - s/p EGD, s/p surgical laparoscopy - appreciate GI and general surgery input - patient has received 6 units of pRBCs during this admission - will continue Unasyn for the perforated ulcer; will transition to Augmentin prior to discharge - continue Fluconazole - BRIAN drain can be removed - plan to d/c to SNF in 1-2 days - continue to work on improved diet Pleural Effusion in the setting of R Heart Failure Severe Aortic Stenosis - large R pleural effusion - s/p thoracentesis on 03/08 - currently stable Acute Kidney Injury superimposed on CKD stage IV - creatinine up to 2.4, monitor and avoid nephrotoxic agents when able - encouraged PO intake, intermittent IV fluids, monitor for overload Hypokalemia - continue to supplement - will recheck K, Mg and Phos in AM (03/12) Chronic Atrial Fibrillation - control HR - no anticoagulation secondary to above Demand Ischemic - elevated troponin - monitor H/H DVT ppx - SCDs DNR/DNI Continued [facility] stay due to: multiple IV medications needed (patient on inotropic support) Discharge planning: retirement facility (with or without hospice based on family discussion), uncertain Total time spent on discharge = 50 minutes This includes examination of the patient, discharge planning, medication reconciliation, and communication with other providers. Discharge Instructions Please follow-up with primary care physician * To be on Augmentin until 03/21 * To be on Fluconazole until 03/21 * Prilosec increased to 40mg twice a day
[2018-03-12 22:52] VITALS: BP 122/71; PULSE 84; TEMP 37; O2SAT 98
== END 2018-03-12 21:15 | DRG 326 ==
LOC: EDBD 13:44 → C.EDC 13:45 → ENRESERV 16:08 → CANRESERV 16:08 → C.MSICU 16:14 → EDBEDREQSVC 16:15 → ENRESERV 16:17 → C.2T 03-01 18:50 → C.MSICU 03-04 21:48 → EDBEDREQ 03-05 15:03 → ENRESERV 03-05 15:25 → C.MSN 03-05 16:42 → ENRESERV 03-05 18:40 → C.2T 03-05 19:45
PROVIDERS: ADMIT Internal Medicine; ATTEND Family Medicine
PROC: 0DJ08ZZ Inspection of Upper Intestinal Tract, Via Natural or Artificial Opening Endoscopic (ICD-10-PCS; 2018-02-28)
PROC: 0W3P8ZZ Control Bleeding in Gastrointestinal Tract, Via Natural or Artificial Opening Endoscopic (ICD-10-PCS; 2018-02-28)
PROC: 0DU647Z Supplement Stomach with Autologous Tissue Substitute, Percutaneous Endoscopic Approach (ICD-10-PCS; principal; 2018-03-04 17:39)
PROC: 0DQ94ZZ Repair Duodenum, Percutaneous Endoscopic Approach (ICD-10-PCS; principal; 2018-03-04 17:39)
PROC: 0D9W40Z Drainage of Peritoneum with Drainage Device, Percutaneous Endoscopic Approach (ICD-10-PCS; principal; 2018-03-04 17:39)
PROC: 0W993ZZ Drainage of Right Pleural Cavity, Percutaneous Approach (ICD-10-PCS; 2018-03-08)
DX: K26.6 Chronic or unspecified duodenal ulcer with both hemorrhage and perforation (principal); K65.9 Peritonitis, unspecified; D62 Acute posthemorrhagic anemia; J90 Pleural effusion, not elsewhere classified; N18.4 Chronic kidney disease, stage 4 (severe); I24.8 Other forms of acute ischemic heart disease; N17.9 Acute kidney failure, unspecified; R18.8 Other ascites; R62.7 Adult failure to thrive; I48.2 Chronic atrial fibrillation; I27.20 Pulmonary hypertension, unspecified; R13.10 Dysphagia, unspecified; I35.0 Nonrheumatic aortic (valve) stenosis; I50.810 Right heart failure, unspecified; B96.1 Klebsiella pneumoniae [K. pneumoniae] as the cause of diseases classified elsewhere; E78.5 Hyperlipidemia, unspecified; I87.8 Other specified disorders of veins; E87.6 Hypokalemia; Z66 Do not resuscitate; Z87.890 Personal history of sex reassignment

== ENCOUNTER → 2018-03-18 | Outpatient (CLI) | payer OTHER ==
[~2018-03-18] MED LIST changes: +ACET325T82 PO; +AMOX875T PO; +BISA1SUP4 RE; +DFL100 PO; +OMEP40CA41 PO; -PRLSR20 PO; +SODI1ENE RE
[2018-03-18 08:10] LABS: HEMATOCRIT 28.9 % (42-52); HEMOGLOBIN 9.2 g/dL (14.0-18.0); MEAN CELL VOLUME 92.6 fL (80-100); MEAN CORPUSCULAR HEMOGLOBIN 29.5 pg (25-34); MEAN CORPUSCULAR HGB CONC 31.8 g/dl (32-36); MEAN PLATELET VOLUME 10.2 fL (7.4-10.4); PLATELET COUNT 392 K/uL (130-400); RED CELL DISTRIBUTION WIDTH CV 16.8 % (11.5-14.5); RED CELL DISTRIBUTION WIDTH SD 56.2 fL (36.4-46.3); WHITE BLOOD COUNT 9.69 K/uL (4.8-10.8)
[2018-03-18 08:20] LABS: ALBUMIN 2.3 gm/dl (3.4-5.0); ALKALINE PHOSPHATASE 373 U/L (45-117); ALT/SGPT 15 U/L (12-78); AST/SGOT 19 U/L (15-37); BLOOD UREA NITROGEN 43 mg/dl (7-18); CALCIUM 8.8 mg/dl (8.5-10.1); CARBON DIOXIDE 26 mmol/L (21-32); CREATININE 2.26 mg/dl (0.60-1.40); GLUCOSE 98 mg/dl (70-99); POTASSIUM 3.9 mmol/L (3.5-5.1); SODIUM 142 mmol/L (136-145); TOTAL PROTEIN 6.5 gm/dl (6.4-8.2)
== END | disposition home or self-care (01) ==
LOC: C.LABUPNIT 07:35
PROVIDERS: ATTEND Nurse Practitioner Family
DX: I50.9 Heart failure, unspecified (principal); D64.9 Anemia, unspecified

== ENCOUNTER → 2018-03-20 | Outpatient (CLI) | payer OTHER ==
[2018-03-20 08:38] LABS: BLOOD UREA NITROGEN 44 mg/dl (7-18); CALCIUM 8.8 mg/dl (8.5-10.1); CARBON DIOXIDE 26 mmol/L (21-32); CREATININE 2.13 mg/dl (0.60-1.40); GLUCOSE 102 mg/dl (70-99); POTASSIUM 4.1 mmol/L (3.5-5.1); SODIUM 140 mmol/L (136-145)
== END ==
LOC: C.LABUPNIT 07:41
PROVIDERS: ATTEND Nurse Practitioner Family
DX: I50.9 Heart failure, unspecified (principal)

== ENCOUNTER → 2018-03-21 | Outpatient (CLI) | payer OTHER ==
[2018-03-21 09:44] LABS: HEMATOCRIT 26.8 % (42-52); HEMOGLOBIN 8.4 g/dL (14.0-18.0); MEAN CELL VOLUME 93.7 fL (80-100); MEAN CORPUSCULAR HEMOGLOBIN 29.4 pg (25-34); MEAN CORPUSCULAR HGB CONC 31.3 g/dl (32-36); MEAN PLATELET VOLUME 10.3 fL (7.4-10.4); PLATELET COUNT 346 K/uL (130-400); RED CELL DISTRIBUTION WIDTH CV 16.8 % (11.5-14.5); RED CELL DISTRIBUTION WIDTH SD 56.8 fL (36.4-46.3); WHITE BLOOD COUNT 9.59 K/uL (4.8-10.8)
[2018-03-21 09:53] LABS: BLOOD UREA NITROGEN 42 mg/dl (7-18); CALCIUM 8.8 mg/dl (8.5-10.1); CARBON DIOXIDE 26 mmol/L (21-32); CREATININE 2.04 mg/dl (0.60-1.40); GLUCOSE 94 mg/dl (70-99); POTASSIUM 4.3 mmol/L (3.5-5.1); SODIUM 141 mmol/L (136-145)
== END ==
LOC: C.LABUPNIT 09:07
PROVIDERS: ATTEND Nurse Practitioner Family
DX: N18.4 Chronic kidney disease, stage 4 (severe) (principal)

== ENCOUNTER → 2018-03-23 | Outpatient (CLI) | payer OTHER ==
[~2018-03-23] MED LIST changes: -AMOX875T PO
== END | disposition home or self-care (01) ==
LOC: C.LABUPNIT 16:04
PROVIDERS: ATTEND Nurse Practitioner Family
DX: P78.3 Noninfective neonatal diarrhea (principal)

== ENCOUNTER → 2018-03-24 | Outpatient (CLI) | payer OTHER ==
[2018-03-24 10:09] LABS: BLOOD UREA NITROGEN 48 mg/dl (7-18); CALCIUM 8.5 mg/dl (8.5-10.1); CARBON DIOXIDE 24 mmol/L (21-32); CREATININE 1.93 mg/dl (0.60-1.40); GLUCOSE 98 mg/dl (70-99); POTASSIUM 4.7 mmol/L (3.5-5.1); SODIUM 140 mmol/L (136-145)
== END | disposition home or self-care (01) ==
LOC: C.LABUPNIT 09:28
PROVIDERS: ATTEND Nurse Practitioner Family
DX: I50.9 Heart failure, unspecified (principal)